=== PATIENT | female | born 1995 | race Caucasian/White ===

== ENCOUNTER 2023-02-18 08:11 | Outpatient (CLI) | payer BC, SELFPAY ==
--- NOTE | 2023-02-18 | ECHO_ITS ---
Patient Info Name: Zena Lang Age: 27 years : 1995 Gender: Female Ht: 71 in Wt: 180 lbs BSA: 2.03 m2 HR: 96 bpm BP: 130 / 80 mmHg Technical Quality: Fair Exam Date: 02/18/2023 8:36 AM Exam Location: [facility] Patient Status: Outpatient Admit Date: 02/18/2023 Staff Ordering Physician: Jerzy, Apple BROWN Alum Mixer: Lisa Morales RDCS Attending Provider: Jerzy, Apple BROWN Exam Type: CA echo doppler color flow Study Info Indications R00.2 - Palpitations R00.0 - Tachycardia, unspecified Complete two-dimensional, color flow and Doppler transthoracic echocardiogram is performed. Summary 1. Complete two-dimensional, color flow and Doppler transthoracic echocardiogram is performed. 2. Left ventricular chamber dimension is normal. 3. Left ventricular systolic function is normal, estimated at 60-65%. 4. The left ventricular diastolic function is grade II diastolic dysfunction. 5. E/e' 4 is not elevated. 6. Global longitudinal strain is normal at -20.3%. 7. No pulmonary hypertension, estimated pulmonary arterial systolic pressure is 13 mmHg. Left Ventricle E/e' 4 is not elevated. Global longitudinal strain is normal at -20.3%. Left ventricular chamber dimension is normal. Left ventricular systolic function is normal, estimated at 60-65%. The left ventricular diastolic function is grade II diastolic dysfunction. Right Ventricle Right ventricular systolic function is normal and with normal TAPSE 3.2 cm. Right ventricular chamber dimension is normal. Left Atria Left atrial chamber dimension is normal. Right Atria Right atrial chamber dimension is normal. Aortic Valve The aortic valve is not well visualized. Cannot determine number of aortic valve leaflets. There is no aortic valve stenosis. There is no aortic valve regurgitation. Pulmonic Valve There is no pulmonic regurgitation. Mitral Valve There is no mitral valve stenosis. There is no mitral valve regurgitation. Tricuspid Valve There is no tricuspid valve regurgitation. No pulmonary hypertension, estimated pulmonary arterial systolic pressure is 13 mmHg. Pericardium/Pleural There is no pericardial effusion. Inferior Vena Cava Normal inferior vena cava with >50% collapse upon inspiration consistent with normal right atrial pressure, 5 mmHg. Aorta The aortic root size at the sinus of Valsalva is normal. Left Ventricular Outflow Tract Name Value Normal LVOT 2D LVOT Diameter 2.0 cm LVOT Doppler LVOT Peak Gradient 7 mmHg LVOT Mean Gradient 4 mmHg LVOT VTI 26 cm LVOT VTI/AV VTI Ratio 1.0 LVOT Stroke Volume 80 ml LVOT CO 7.7 l/min LVOT CI 3.8 l/min/m2 Pulmonic Valve Name Value Normal RVOT Doppler -
== END 2023-02-18 08:12 | disposition home or self-care (01) ==
LOC: ANHCARD 08:15
PROVIDERS: PCP Nurse Practitioner Family; Visit Provider Nurse Practitioner Family
DX: R00.2 Palpitations (principal)
CPT/HCPCS: 93306

== ENCOUNTER 2023-12-28 00:56 | Day surgery (SDC) | payer OTHER, SELFPAY ==
[2023-12-19 13:00] VITALS: BMI 25.8
--- NOTE | 2023-12-19 13:04 | PC.NURSE ---
Report to the Outpatient Waiting Room, entrance under the green pavilion located off [facility], at time 0800 on date 12/28/23. Planned Procedure Time: 1000. Time changes happen often and if your time is changed the preop area will call you the afternoon before. - You and your visitor will be asked to self-screen and do not enter if you have any COVID symptoms. - A mask is optional within the hospital at this time. Patients may have clear liquids (water, carbonated beverages, clear teas, apple juice) until 3 hours prior to surgery with a maximum of 20 ounces. - No food from midnight until time of surgery Take the following medications with a SIP of water the morning of surgery: NONE DO NOT STOP ANY OF YOUR OTHER PRESCRIPTION MEDICATIONS PRIOR TO SURGERY ?EXCEPT THE FOLLOWING Medications to discontinue per physician: N/A Date to take last dose: N/A Please no make-up, nail thai, hairspray, perfume, deodorant, or body powder the day of surgery. No jewelry (including any body piercings) or valuables the day of surgery, leave them at home. Please take a shower or bath the night before, or the morning of, surgery with an antibacterial soap. Wear comfortable, loose fitting clothing. - Jewelry must be removed prior to entering the operating room. Rings and piercings that are not removed may be cut off. - The hospital will not accept responsibility for valuables. - Please leave all valuables, including medications, at home the day of surgery. If you are going home after surgery, a licensed haul truck driver must drive you home. - NO public transportation without another adult if you receive anesthesia. - We recommend that an adult stay with you for 24 hours following discharge. - We also recommend that you do not drive, make important decision, drink alcoholic beverages, or take any drugs that were not prescribed by your health care provider for at least 24 hours after your discharge time. Follow any additional instructions given to you from your surgeon. If you or anyone in your household have experienced Covid symptoms in the past week, please notify your surgeon or the nurse liaison at the phone number below for possible testing. Telephone instructions given to PT - TREVOR RAYMOND and asked if any additional questions and then verbalized understanding. Patient advised to call surgeon office or pre surgery nurse liaison [phone] if any additional questions.
--- NOTE | 2023-12-27 09:44 | P.PNAN_ITS ---
Anes - Initial Pre Proc Eval Procedure: Operation Date: 12/28/23 10:00 Proposed Procedures p Laparoscopic Bilateral Salpingectomy - Carmen Jose MD Date/Time: 12/27/23 09:44 Surgeon: Carmen Jose MD Pre Op Diagnosis: Female Sterilization Patient Data Age: 28 Gender: F Height: 1.8 m Weight: 83.95 kg Allergies Allergy/AdvReac Type Severity Reaction Status Date / Time No Known Allergies Allergy Unverified 12/19/23 12:59 Home Medications Medication Instructions Recorded Confirmed Type metoprolol succinate 25 mg 25 mg PO HS 12/19/23 12/19/23 History tablet,extended release 24 hr ziprasidone HCl 60 mg capsule 60 mg PO HS 12/19/23 12/19/23 History Patient hx anesthesia problems: none Family hx anesthesia problems: none Results Review: All pre-operative results and documents have been reviewed as part of the pre- operative evaluation. [facility] Social History Social History Smoking status: Never smoker Alcohol intake: current Drinks per week: 2 Substance use: never Substance use type: does not use Living arrangements: with friend(s) Additional living arrangements comments: BOYFRIEND Spiritual care concerns: No Anes - Eval Final PreProcedure Day of Procedure 12/27/23 09:44 Patient weight: overweight Heart: regular rate and rhythm Lungs: clear to auscultation Airway: Mallampati scale class II Neurological: alert and oriented Last oral intake: >/= 8 hours ASA classification: II Emergent: no Anesthetic plan: proceed Anesthesia type and monitoring: general ETT and standard monitoring Results Review: All pre-operative results and documents have been reviewed as part of the pre- operative evaluation. Informed Consent: The patient's anesthetic plan and its attendant risks and benefits were discussed with the patient/family/POA. Questions were solicited and answers provided to the satisfaction of the patient/family/POA.
[2023-12-28] VITALS (8 sets, daily range): BP systolic 107–124; BP diastolic 49–69; PULSE 67–97; RESP 10–20; TEMP 36.5–37.1; O2SAT 97–100
[2023-12-28] MEDS: ACETAMINOPHEN 500 MG TABLET 1000 MG PO (08:25)
[2023-12-28] MEDS: LACTATED RINGERS 1,000 ML 30 ML IV CONT ×2 (08:30→11:20)
[2023-12-28] MEDS: KETOROLAC 15 MG/ML VIAL (*BKC) IV PUSH (08:32)
--- NOTE | 2023-12-28 09:40 | P.PNAN_ITS ---
Anes - Initial Pre Proc Eval Procedure: Operation Date: 12/28/23 10:00 Proposed Procedures p Laparoscopic Bilateral Salpingectomy - Carmen Jose MD Date/Time: 12/28/23 09:40 Surgeon: Carmen Jose MD Pre Op Diagnosis: Female Sterilization Patient Data Age: 28 Gender: F Height: 1.8 m Weight: 79.7 kg Last Vital Signs Temp 97.9 F 12/28/23 07:53 Pulse 97 12/28/23 07:53 Resp 20 12/28/23 07:53 BP 124/59 L 12/28/23 07:53 Pulse Ox 100 12/28/23 07:53 O2 Del Method Room Air 12/28/23 07:53 Allergies Allergy/AdvReac Type Severity Reaction Status Date / Time No Known Allergies Allergy Unverified 12/28/23 08:28 Home Medications Medication Instructions Recorded Confirmed Type metoprolol succinate 25 mg 25 mg PO HS 12/19/23 12/28/23 History tablet,extended release 24 hr ziprasidone HCl 60 mg capsule 60 mg PO HS 12/19/23 12/28/23 History Patient hx anesthesia problems: none Family hx anesthesia problems: none Results Review: All pre-operative results and documents have been reviewed as part of the pre- operative evaluation. [facility] Social History Social History Smoking status: Never smoker Alcohol intake: current Drinks per week: 2 Substance use: never Substance use type: does not use Living arrangements: with friend(s) Additional living arrangements comments: BOYFRIEND Spiritual care concerns: No Anes - Eval Final PreProcedure Day of Procedure 12/28/23 09:40 Patient weight: normal Heart: regular rate and rhythm Lungs: clear to auscultation Neurological: alert and oriented Last oral intake: >/= 8 hours Emergent: no Anesthetic plan: proceed Results Review: All pre-operative results and documents have been reviewed as part of the pre- operative evaluation. Informed Consent: The patient's anesthetic plan and its attendant risks and benefits were discussed with the patient/family/POA. Questions were solicited and answers provided to the satisfaction of the patient/family/POA.
--- NOTE | 2023-12-28 10:00 | PM.IMHP ---
H&P: HPI History of Present Illness Date/Time: 12/28/23 10:00 Chief Complaint: Female sterilization Narrative: this patient is a 28-year-old female who would like sterilization. We have agreed to perform laparoscopic bilateral salpingectomy. She understands risks. She understands the procedure in detail. It was explained to her. She understands that injuries may occur that result hospitalization, more surgery, and severe illness. she understands risk of hemorrhage and infection. She denies any nausea, vomiting, fever, chills. She denies any chest pain shortness of breath Review of Systems Review of Systems: All systems reviewed & are unremarkable except as noted in HPI and below Constitutional: Constitutional: Denies chills, Denies fatigue, Denies fever(s) and Denies weakness Eyes: Eyes: Denies blurry vision, Denies change in vision, Denies loss of peripheral vision, Denies loss of vision, Denies other visual disturbances and Denies eye pain ENT: Denies vertigo, Denies dizziness, Denies hearing loss, Denies mouth pain, Denies nasal obstruction, Denies neck mass and Denies neck pain Cardiovascular: Cardiovascular: Denies chest pain, Denies diaphoresis, Denies syncope, Denies leg edema and Denies dyspnea Respiratory: Respiratory: Denies chest congestion, Denies cough, Denies hemoptysis, Denies dyspnea and Denies wheezing Gastrointestinal: Gastrointestinal: Denies abdominal pain, Denies constipation, Denies diarrhea, Denies nausea and Denies vomiting Genitourinary: Genitourinary: Denies hematuria, Denies change in libido, Denies nocturia, Denies genital lesions, Denies flank pain and Denies urinary urgency Musculoskeletal: Musculoskeletal: Denies abnormal gait, Denies back pain, Denies myalgias, Denies arthralgias, Denies joint swelling, Denies muscle weakness and Denies neck pain Integumentary/Breasts: Skin/Breast: Denies swelling, Denies breast pain, Denies breast mass, Denies dry skin, Denies nipple discharge, Denies unusual bruising and Denies jaundice Neurologic: Denies Neuro-related abnormal movements, Denies Abnormal speech present, Denies abnormal gait, Denies behavioral changes, Denies confusion, Denies vertigo, Denies dizziness, Denies syncope, Denies loss of vision, Denies memory loss, Denies convulsions and Denies weakness Psychiatric: Psychiatric: Denies abnormal sleep pattern, Denies behavioral changes, Denies change in libido, Denies confusion, Denies depression, Denies anhedonia and Denies memory loss Endocrine: Endocrine: Reports no additional endocrine complaints, Denies change in libido and Denies fatigue Hematologic/Lymphatic: Hematologic/Lymphatic: Reports no additional hematologic/lymphatic complaints Allergic/Immunologic: Allergic/Immunologic: Reports no additional allergic/immunologic complaints and Denies wheezing PMFSH Social History Social History Smoking status: Never smoker Alcohol intake: current Drinks per week: 2 Substance use: never Substance use type: does not use Living arrangements: with friend(s) Additional living arrangements comments: BOYFRIEND Spiritual care concerns: No Meds Home Medications and Allergies Home Medications Medication Instructions Recorded Confirmed Type metoprolol succinate 25 mg 25 mg PO HS 12/19/23 12/28/23 History tablet,extended release 24 hr ziprasidone HCl 60 mg capsule 60 mg PO HS 12/19/23 12/28/23 History Allergies Allergy/AdvReac Type Severity Reaction Status Date / Time No Known Allergies Allergy Unverified 12/28/23 08:28 Vital Signs Vital Signs - 24 hr 12/28/23 07:53 Temperature 97.9 F Pulse Rate 97 Respiratory Rate 20 Blood Pressure 124/59 L Pulse Oximetry 100 Oxygen Delivery Room Air Exam Const: General: cooperative, healthy appearing, comfortable and no acute distress Orientation/consciousness: oriented to person, oriented to place and orien
--- NOTE | 2023-12-28 10:04 | WPDANESEPPF ---
Anes - Initial Pre Proc Eval Procedure: Operation Date: 12/28/23 10:00 Proposed Procedures p Laparoscopic Bilateral Salpingectomy - Carmen Jose MD Date/Time: 12/28/23 10:04 Surgeon: Carmen Jose MD Pre Op Diagnosis: Female Sterilization Patient Data Age: 28 Gender: F Height: 1.8 m Weight: 79.7 kg Last Vital Signs Temp 97.9 F 12/28/23 07:53 Pulse 97 12/28/23 07:53 Resp 20 12/28/23 07:53 BP 124/59 L 12/28/23 07:53 Pulse Ox 100 12/28/23 07:53 O2 Del Method Room Air 12/28/23 07:53 Allergies Allergy/AdvReac Type Severity Reaction Status Date / Time No Known Allergies Allergy Unverified 12/28/23 08:28 Home Medications Medication Instructions Recorded Confirmed Type metoprolol succinate 25 mg 25 mg PO HS 12/19/23 12/28/23 History tablet,extended release 24 hr ziprasidone HCl 60 mg capsule 60 mg PO HS 12/19/23 12/28/23 History Patient hx anesthesia problems: none Family hx anesthesia problems: none Results Review: All pre-operative results and documents have been reviewed as part of the pre-operative evaluation. [facility] Social History Social History Smoking status: Never smoker Alcohol intake: current Drinks per week: 2 Substance use: never Substance use type: does not use Living arrangements: with friend(s) Additional living arrangements comments: BOYFRIEND Spiritual care concerns: No Anes - Eval Final PreProcedure Day of Procedure 12/28/23 10:04 Patient weight: obese Heart: regular rate and rhythm Lungs: clear to auscultation Airway: Mallampati scale class II Neurological: alert and oriented Last oral intake: >/= 8 hours ASA classification: II Emergent: no Anesthetic plan: proceed Anesthesia type and monitoring: general ETT and standard monitoring Results Review: All pre-operative results and documents have been reviewed as part of the pre-operative evaluation. Informed Consent: The patient's anesthetic plan and its attendant risks and benefits were discussed with the patient/family/POA. Questions were solicited and answers provided to the satisfaction of the patient/family/POA.
--- NOTE | 2023-12-28 10:07 | WPDHPUPDATE1 ---
History and Physical Update Update Date/Time: 12/28/23 10:07 History and Physical has been reviewed, including an updated exam of the patient. There are NO changes in the patient's condition. Risks, benefits, and alternatives have been discussed and questions answered. Patient agrees to proceed with procedure.
[2023-12-28] MEDS: fentaNYL CITRATE INJ (*CRX) 100 MCG/2 ML VIAL 25 MCG IV PUSH ×4 (11:28→12:13)
--- NOTE | 2023-12-28 11:42 | SUR.PHASEI ---
1141: Simple mask removed.
--- NOTE | 2023-12-28 12:24 | W.PM.PROC2 ---
Procedure Note - Detailed Date of Procedure 12/28/23 Pre-op Diagnosis Female Sterilization Post-op Diagnosis Same Procedure Performed Laparoscopic bilateral salpingectomy Surgeon Carmen Jose MD Anesthesia General Indications Unwanted fertility Findings several endometrial implants throughout the pelvis Description of Procedure The patient was taken the operating room. She was prepped and draped in the dorsal lithotomy position after induction of general anesthesia. A 5 mm skin incision was made in the left upper quadrant of the abdominal skin. A 5 mm trocar was inserted the intra-abdominal cavity under direct visualization of the scope. Pneumoperitoneum was achieved. A 5 mm trocar was inserted in the left lower quadrant identical fashion. A 5 mm infraumbilical trocar was inserted in identical fashion as well. The bilateral fallopian tubes were removed. This was done by using a LigaSure cautery. The mesosalpinx adjacent to the tube was cauterized transected with LigaSure. This was initiated in the area the ovary and in a stepwise fashion moved medially to the area of the cornu of the uterus. Once there the fallopian tube was cauterized and transected. This was done in identical fashion on each side. The fallopian tubes were taken out through the left lower quadrant trocar site. The pneumoperitoneum was reduced. The trocars removed. The skin was closed with subcuticular 4 Monocryl and covered with Dermabond. She was taken to cover stable condition. Sponge lap and needle counts were correct x2. Estimated Blood Loss 5 Drains No Packing No Pathology Yes Complications No immediate complications Condition Stable Disposition PACU
[2023-12-28] MEDS: oxyCODONE HCL (*CRX) 5 MG TAB IR PO (12:37)
== END 2023-12-28 13:10 | disposition home or self-care (01) ==
PROVIDERS: PCP Nurse Practitioner Family; Visit Provider Obstetrics & Gynecology
PROC: (CPT 49320; principal; 2023-12-28 10:00)
DX: Z30.2 Encounter for sterilization (principal); N83.8 Other noninflammatory disorders of ovary, fallopian tube and broad ligament
CPT/HCPCS: 58661; 88302; A9270; J1100; J1170; J1200; J1885; J2250; J2371; J2405; J3010; J7030; J7120

== ENCOUNTER 2025-01-17 15:46 | Emergency (ER) | payer BC, SELFPAY ==
[2025-01-17 15:54] VITALS: BP 124/67; PULSE 80; RESP 18; TEMP 36.6; O2SAT 100
--- NOTE | 2025-01-17 15:56 | ED.GENADULT ---
HPI - General Adult General Chief complaint: Weakness Stated complaint: Weakness Time Seen by Provider: 01/17/25 15:56 Source: patient Mode of arrival: ambulatory Limitations: no limitations History of Present Illness HPI narrative: 29-year-old female presents with complaint of generalized weakness, fatigue for 3-4 weeks. Patient states I feel like crap . Patient had appointment with her [employer] [email or web address] developer last week but did not tell him about symptoms. Patient is scheduled for surgery to remove endometriosis next Tuesday. No vaginal bleeding at this time. Reports urinary frequency but at baseline. Afebrile. No URI symptoms. Currently does not have a primary care physician. Patient currently smokes marijuana daily. All systems reviewed and negative except as noted above. Related Data Home Medications ?Medication ?Instructions ?Recorded ?Confirmed ?Last Taken ?Type ziprasidone HCl 60 mg capsule 60 mg PO HS 12/19/23 01/16/25 12/27/23 History cholecalciferol (vitamin D3) 25 25 mcg PO DAILY 01/16/25 01/16/25 Unknown History mcg (1,000 unit) capsule (Vitamin D3) magnesium 250 mg tablet 500 mg PO HS 01/16/25 01/16/25 Unknown History prazosin 1 mg capsule 1 mg PO HS 01/16/25 01/16/25 Unknown History Allergies Allergy/AdvReac Type Severity Reaction Status Date / Time No Known Allergies Allergy Unverified 01/17/25 15:56 Review of Systems Review of Systems: CONSTITUTIONAL: Denies fever, chills, or sweats. Reports fatigue. EYES: Denies visual changes, redness, or discharge. ENT: Denies rhinorrhea, congestion, sore throat, or otalgia. CARDIOVASCULAR: Denies chest pain, palpitations, or edema. RESPIRATORY: Denies cough or dyspnea. GASTROINTESTINAL: Denies abdominal pain, nausea, vomiting, or diarrhea. GENITOURINARY: Denies dysuria or hematuria. SKIN: Denies rash or itching. MUSCULOSKELETAL: Denies back pain, joint pain, or myalgia. NEUROLOGIC: Denies headache, numbness, or weakness. PSYCHIATRIC: Denies anxiety or depression. All other systems reviewed are negative, except as documented in HPI. FORMERLY [facility], [facility] Social History Social History Smoking status: Never smoker Alcohol intake: current Drinks per week: 2 Substance use: never Substance use type: marijuana Other substance usage details: Nightly Living arrangements: with family Additional living arrangements comments: BOYFRIEND Spiritual care concerns: No Comments At time of signature, agree with nursing past medical, surgical, social and family history. There is no relevant family history pertinent to the presenting complaint. Exam Narrative: GENERAL: This is a well-nourished, well-developed patient, in no apparent distress. HEAD: normocephalic, atraumatic. EYES: PERRL. Sclera clear/white. Vision is grossly intact. EARS: External ears normal NOSE: External nose normal NECK: Neck supple, non-tender without lymphadenopathy, masses or thyromegaly. CARDIOVASCULAR: Regular rate and rhythm without murmurs, gallops, or rubs. RESPIRATORY: Clear to auscultation. Breath sounds equal bilaterally. No wheezes, rales, or rhonchi. GASTROINTESTINAL: Abdomen soft, non-tender, nondistended. Bowel sounds are active. No hepato-splenomegaly, or palpable masses. No guarding. SKIN: warm, Dry, intact with no suspicious lesions or rash, good texture and turgor. NEURO: awake, alert, and oriented to person, place and time. There were no obvious focal neurologic abnormalities. EXTREMITIES: No joint tenderness, effusion, or edema noted. Course Course Level of Care: Express Care Visit Vital Signs Vital signs: Vital Signs Temperature 36.6 C 01/17/25 15:54 Pulse Rate 80 01/17/25 15:54 Respiratory Rate 18 01/17/25 15:54 Blood Pressure 124/67 01/17/25 15:54 Pulse Oximetry 100 01/17/25 15:54 Oxygen Delivery Room Air 01/17/25 15:54 Temperature 36.6 C 01/17/25 15:54 Pulse Rate 80 01/17/25 15:54 Respiratory Rate 18 01/17/25 15:54 Blood Pressure 124/67 01/17/25 15:54 Pulse Oximetry 100 01/17/25 15:54 Oxygen Delivery Room Air 01/17/25 15:54 Reviewed Medical Decision Making MDM Narrative Medical decision making narrative: patient complains of generalized weakness and fatigue for 3-4 weeks. She had appointment with her OBGYN last week but did not mention symptoms to them. Currently does not have a PCP. Patient reports heavier than usual menstrual. Three weeks ago but no vaginal bleeding at this time. Patient has endometriosis. Is scheduled for endometriosis removal next week. Explain to patient that we are very limited on testing we can do at [facility]. Patient's blood sugar was anyone. Her urinalysis was normal other than trace blood. I recommend that she follow-up with a primary care physician for further evaluation. Will go to the ER for any worsening of symptoms. Patient is alert, nontoxic. Vital signs Hemodynamically stable. Please be advised this is a medical document. It is intended for [id number] communication. It is written in medical language and may contain unfamiliar abbreviations or verbiage. Medical documents are intended to carry relevant information, facts as evident, and the clinical opinion of the practitioner at the time of the encounter. This report may have been done utilizing a voice recognition system. Attempts have been made to correct errors. However, there may be uncorrected grammatical, spelling, and recognition errors present. The file time of this note does not necessarily represent the time of service. Vital Signs Vital Signs: Vital Signs Temperature 36.6 C 01/17/25 15:54 Pulse Rate 80 01/17/25 15:54 Respiratory Rate 18 01/17/25 15:54 Blood Pressure 124/67 01/17/25 15:54 Pulse Oximetry 100 01/17/25 15:54 Oxygen Delivery Room Air 01/17/25 15:54 Temperature 36.6 C 01/17/25 15:54 Pulse Rate 80 01/17/25 15:54 Respiratory Rate 18 01/17/25 15:54 Blood Pressure 124/67 01/17/25 15:54 Pulse Oximetry 100 01/17/25 15:54 Oxygen Delivery Room Air 01/17/25 15:54 Lab Data Labs: Lab Results 01/17/25 01/17/25 Range/Units 16:22 16:23 POC Capillary Glucose 81 (65-105) mg/dl POC Urine Color Yellow POC Urine Clarity Clear POC Urine pH 7.0 POC Ur Specif Nazlini 1.015 POC Urine Protein Negative (Negative) POC Ur Glucose (UA) Negative (Negative) POC Urine Ketones Negative (Negative) POC Urine Blood Trace (Negative) POC Urine Nitrite Negative (Negative) POC Urine Bilirubin Negative (Negative) POC Urine Urobilinogen 0.2 POC U Leukocyte Esteras Negative (Negative) Discharge Plan Discharge Clinical Impression: Fatigue, Generalized weakness Patient Disposition: Home, Self-Care Condition: Stable Instructions: Fatigue (ED) Additional Instructions: Your urinalysis was normal today. Your blood sugar was 81. Follow-up with primary care physician for further evaluation. For any worsening of symptoms go to the ER. Patient Language: Burkinan Prescriptions: No Action prazosin 1 mg capsule 1 mg PO HS Patient Comments: Takes as a mood stabilizer magnesium 250 mg tablet 500 mg PO HS cholecalciferol (vitamin D3) [Vitamin D3] 25 mcg (1,000 unit) capsule 25 mcg PO DAILY ziprasidone HCl 60 mg capsule 60 mg PO HS Follow-up/Referrals: PHYSICIAN,PROPERTY MANAGEMENT ASSISTANT [Primary Care Provider] - Berhane Osei MD [Physician] - ( Establish care with a primary care physician) Time of Disposition: 16:25
[2025-01-17 16:24] LABS: Glucose Point of Care 81 mg/dl (65-105)
[2025-01-17 16:26] LABS: EDUAAPPEAR Clear; EDUABILI Negative (Negative); EDUABLOOD Trace (Negative); EDUACOLOR1 Yellow; EDUAGLUCOSE Negative (Negative); EDUAKETONE Negative (Negative); EDUALEUKO Negative (Negative); EDUANITRATE Negative (Negative); EDUAPROTEIN Negative (Negative); EDUASPGRAVITY 1.015; EDUAUROBILI 0.2
--- OUTSIDE RECORDS SUMMARY | 2025-01-17 17:22 | XMS_ITS | Data Portability ---
Author Organization [facility] Address [address] [place] [address] Care Team Providers Care Family Practice Doctor Name Role Phone JESSA WINTERS Primary Care Provider Assessment Encounter Date Assessment Date Assessment LastModified by Organization Details LastModified Time 06/14/2019 06/14/2019 note for work to excuse for today's visit Not available 06/14/2019 17:02:36 Plan of Treatment Reminders Order Date Submit Date Provider Last Modified By Organization Details Last Modified Time Details Appointments None recorded. Lab celiac disease comprehens haroon panel, serum 2016 017 [facility], [facility], [address], [place], [address], 7 16:19:24 celiac disease comprehens haroon panel, serum 2016 017 [facility], [facility], [facility] [address], [place], [address], 7 02:37:35 CBC w/ auto diff 2016 017 [facility], [facility], [address], [place], [address], 7 16:20:52 CMP, serum or plasma 2016 017 [facility], [address] [place], [place] [address]federico Florian, [facility] [address], [place], [address], 7 16:20:52 TSH, ultra-sens itive, serum 2016 017 [facility], [address] [place] [address], [address], [place], [address], 7 16:20:53 celiac disease comprehens haroon panel, serum 2016 017 [facility], [address] [place] [address], [address], [place], [address], 7 16:20:51 vitamin D, 25-hydroxy , total, serum 2016 017 [facility], [address] [place] [address], [address], [place], [address], 7 16:20:53 Referral None recorded. Procedures None recorded. Surgeries None recorded. Imaging None recorded. Medication Orders Seasonique 0.15 mg-30 mcg (84)/10 mcg(7) tablets,3 month dose pack [address] [id number], [address] [place], [address], 9 17:00:10 Zofran ODT 8 mg disintegra ting tablet 2017 [facility]18 [facility] [address] [place], [address], 9 15:58:29 OsmoPrep 1.5 gram (1.102-0.3 98) tablet [address] [facility] [address] [place], [address], 7 16:27:46 Miralax 17 gram/dose oral powder 2016 017 [facility]/Pharmacy #2510, [address] [place], [address], 7 16:27:32 Linzess 145 mcg capsule 2016 Carlos estelle [facility], [address] [place], [address], 7 16:27:28 Patient TargetsNo targets recorded. Patient Instructions Encounter Date Encounter Id Patient Instructions Last Modified By Organization Details Last Modified Time 03/15/2017 [id number] constipation: care instructions Not available 03/15/2017 17:41:21 diet - low fodmap lenglema Not availabl e 03/16/2017 09:44:44 04/12/2017 [id number] OK for work note for yesterday and today Not available 04/13/2017 02:37:16 Reason for Referral None Reported. Results Created Date Observation Date Name Description Value Unit Range Abnormal Flag Note LastModifiedBy Organization Detail LastModifiedTime 03/15/20 17 03/16/2017 sugey c disea se compr ehens haroon panel , serum endomysial antibody IgA NEGATI VE negati ve Not Available [facility] ([facility]) [address] [facility], [place], [address], 03/16/2017 16:20:51 03/15/20 17 03/16/2017 sugey c disea se compr ehens haroon panel , serum T-transgluta minase (ttg) IgA <2 U/mL 0-3 NEGAT HAROON 0 - 3 WEAK POSIT HAROON 4 - 10 POSIT HAROON >10 TISSU E TRANS GLUTA CHER E (TTG) HAS BEEN IDENT IFIED THE ENDOM YSIAL ANTIG EN. STUDI ES HAVE DEMON STR- ATED THAT ENDOM YSIAL IGA ANTIB ODIES HAVE OVER 99% SPECI FICIT Y FOR GLUTE N SENSI TIVE ENTER OPATH Y. Not Available [facility] ([facility]) [address] [facility], [place], [address], 03/16/2017 16:20:51 03/15/20 17 03/16/2017 sugey c disea se compr ehens haroon panel , serum immunoglobul in A, qn, serum 73 mg/dL 87-352 below low normal Not Available [facility] ([facility]) [address] [facility], [place], [address], 03/16/2017 16:20:51 03/15/20 17 03/16/2017 sugey c disea se compr ehens haroon panel , serum T-transgluta minase (ttg) IgG <2 U/mL 0-5 NEGAT HAROON 0 - 5 WEAK POSIT HAROON 6 - 9 POSIT HAROON >9 Not Available [facility] ([facility]) [address] [facility], [place], [address], 03/16/2017 16:20:51 03/15/20 17 03/16/2017 CBC w/ auto diff WBC 10.2 x10e3 /uL 3.4-10 .8 Not Available [facility] ([facility]) [address] [facility], [place], [address], 03/16/2017 16:20:52 03/15/20 17 03/16/2017 CBC w/ auto diff RBC 4.75 x10e6 /uL 3.77-5 .28 Not Available [facility] ([facility]) [address] [facility], [place], [address], 03/16/2017 16:20:52 03/15/20 17 03/16/2017 CBC w/ auto diff hemoglobin 14.3 g/dL 11.1-1 5.9 Not Available [facility] ([facility]) [address] [place], [address], 03/16/2017 16:20:52 03/15/20 17 03/16/2017 CBC w/ auto diff hematocrit 40.5 % 34.0-4 6.6 Not Available [facility] ([facility]) [address] [place], [address], 03/16/2017 16:20:52 03/15/20 17 03/16/2017 CBC w/ auto diff MCV 85 fL 79-97 Not Available [facility] ([facility]) [address] [facility], [place], [address], 03/16/2017 16:20:52 03/15/20 17 03/16/2017 CBC w/ auto diff MCH 30.1 pg 26.6-3 3.0 Not Available [facility] ([facility]) [address] [facility], [place], [address], 03/16/2017 16:20:52 03/15/20 17 03/16/2017 CBC w/ auto diff MCHC 35.3 g/dL 31.5-3 5.7 Not Available [facility] ([facility]) [address] [facility], [place], [address], 03/16/2017 16:20:52 03/15/20 17 03/16/2017 CBC w/ auto diff RDW 13.4 % 12.3-1 5.4 Not Available [facility] ([facility]) [address] [facility], [place], [address], 03/16/2017 16:20:52 03/15/20 17 03/16/2017 CBC w/ auto diff platelets 287 x10e3 /uL 150-37 9 Not Available [facility] ([facility]) [address] [facility], [place], [address], 03/16/2017 16:20:52 03/15/20 17 03/16/2017 CBC w/ auto diff neutrophils 61 % Not Available [facility] ([facility]) [address] [place], [address], 03/16/2017 16:20:52 03/15/20 17 03/16/2017 CBC w/ auto diff lymphs 32 % Not Available [facility] ([facility]) [address] [facility], [place], [address], 03/16/2017 16:20:52 03/15/20 17 03/16/2017 CBC w/ auto diff monocytes 6 % Not Available [facility] ([facility]) [address] [place], [address], 03/16/2017 16:20:52 03/15/20 17 03/16/2017 CBC w/ auto diff eos 1 % Not Available [facility] ([facility]) [address] [place], [address], 03/16/2017 16:20:52 03/15/20 17 03/16/2017 CBC w/ auto diff basos 0 % Not Available [facility] ([facility]) [address] [place], [address], 03/16/2017 16:20:52 03/15/20 17 03/16/2017 CBC w/ auto diff immature cells RAG COLLECTOR Not Available [facility] ([facility]) [address] [place], [address], 03/16/2017 16:20:52 03/15/20 17 03/16/2017 CBC w/ auto diff neutrophils (absolute) 6.2 x10e3 /uL 1.4-7. 0 Not Available [facility] ([facility]) [address] [place], [address], 03/16/2017 16:20:52 03/15/20 17 03/16/2017 CBC w/ auto diff lymphs (absolute) 3.3 x10e3 /uL 0.7-3. 1 above high normal Not Available [facility] ([facility]) [address] [place], [address], 03/16/2017 16:20:52 03/15/20 17 03/16/2017 CBC w/ auto diff monocytes(ab solute) 0.6 x10e3 /uL 0.1-0. 9 Not Available [facility] ([facility]) [address] [place], [address], 03/16/2017 16:20:52 03/15/20 17 03/16/2017 CBC w/ auto diff eos (absolute) 0.1 x10e3 /uL 0.0-0. 4 Not Available [facility] ([facility]) [address] [place], [address], 03/16/2017 16:20:52 03/15/20 17 03/16/2017 CBC w/ auto diff baso (absolute) 0.0 x10e3 /uL 0.0-0. 2 Not Available [facility] ([facility]) [address] [place], [address], 03/16/2017 16:20:52 03/15/20 17 03/16/2017 CBC w/ auto diff immature granulocytes 0 % Not Available [facility] ([facility]) [address] [place], [address], 03/16/2017 16:20:52 03/15/20 17 03/16/2017 CBC w/ auto diff immature grans (abs) 0.0 x10e3 /uL 0.0-0. 1 Not Available [facility] ([facility]) [address] [place], [address], 03/16/2017 16:20:52 03/15/20 17 03/16/2017 CBC w/ auto diff NRBC RAG COLLECTOR Not Available [facility] ([facility]) [address] [place], [address], 03/16/2017 16:20:52 03/15/20 17 03/16/2017 CBC w/ auto diff hematology comments: RAG COLLECTOR Not Available [facility] ([facility]) [address] [place], [address], 03/16/2017 16:20:52 03/15/20 17 03/16/2017 CMP, serum or plasm a glucose, serum 89 mg/dL 65-99 Not Available [facility] ([facility]) [address] [place], [address], 03/16/2017 16:20:52 03/15/20 17 03/16/2017 CMP, serum or plasm a BUN 15 mg/dL 6-20 Not Available [facility] ([facility]) [address] [place], [address], 03/16/2017 16:20:52 03/15/20 17 03/16/2017 CMP, serum or plasm a creatinine, serum 0.72 mg/dL 0.57-1 .00 Not Available [facility] ([facility]) [address] [place], [address], 03/16/2017 16:20:52 03/15/20 17 03/16/2017 CMP, serum or plasm a eGFR if nonafricn AM 122 mL/mi n/1.7 3 >59 Not Available [facility] ([facility]) [address] [place], [address], 03/16/2017 16:20:52 03/15/20 17 03/16/2017 CMP, serum or plasm a eGFR if africn AM 140 mL/mi n/1.7 3 >59 Not Available [facility] ([facility]) [address] [place], [address], 03/16/2017 16:20:52 03/15/20 17 03/16/2017 CMP, serum or plasm a BUN/creatini ne ratio 21 9-23 Not Available [facility] ([facility]) [address] [place], [address], 03/16/2017 16:20:52 03/15/20 17 03/16/2017 CMP, serum or plasm a sodium, serum 143 mmol/ L 134-14 4 Not Available [facility] ([facility]) [address] [place], [address], 03/16/2017 16:20:52 03/15/20 17 03/16/2017 CMP, serum or plasm a potassium, serum 4.8 mmol/ L 3.5-5. 2 Not Available [facility] ([facility]) [address] [place], [address], 03/16/2017 16:20:52 03/15/20 17 03/16/2017 CMP, serum or plasm a chloride, serum 103 mmol/ L 96-106 Not Available [facility] ([facility]) [address] [facility], [place], [address], 03/16/2017 16:20:52 03/15/20 17 03/16/2017 CMP, serum or plasm a carbon dioxide, total 21 mmol/ L 18-29 Not Available [facility] ([facility]) [address] [place], [address], 03/16/2017 16:20:52 03/15/20 17 03/16/2017 CMP, serum or plasm a calcium, serum 9.7 mg/dL 8.7-10 .2 Not Available [facility] ([facility]) [address] [place], [address], 03/16/2017 16:20:52 03/15/20 17 03/16/2017 CMP, serum or plasm a protein, total, serum 6.7 g/dL 6.0-8. 5 Not Available [facility] ([facility]) [address] [facility], [place], [address], 03/16/2017 16:20:52 03/15/20 17 03/16/2017 CMP, serum or plasm a albumin, serum 4.6 g/dL 3.5-5. 5 Not Available [facility] ([facility]) [address] [place], [address], 03/16/2017 16:20:52 03/15/20 17 03/16/2017 CMP, serum or plasm a globulin, total 2.1 g/dL 1.5-4. 5 Not Available [facility] ([facility]) [address] [place], [address], 03/16/2017 16:20:52 03/15/20 17 03/16/2017 CMP, serum or plasm a A/G ratio 2.2 1.2-2. 2 Not Available [facility] ([facility]) [address] [place], [address], 03/16/2017 16:20:52 03/15/20 17 03/16/2017 CMP, serum or plasm a bilirubin, total <0.2 mg/dL 0.0-1. 2 Not Available [facility] ([facility]) [address] [place], [address], 03/16/2017 16:20:52 03/15/20 17 03/16/2017 CMP, serum or plasm a alkaline phosphatase, S 45 IU/L 39-117 Not Available [facility] ([facility]) [address] [place], [address], 03/16/2017 16:20:52 03/15/20 17 03/16/2017 CMP, serum or plasm a AST (SGOT) 15 IU/L 0-40 Not Available [facility] ([facility]) [address] [place], [address], 03/16/2017 16:20:52 03/15/20 17 03/16/2017 CMP, serum or plasm a ALT (SGPT) 13 IU/L 0-32 Not Available [facility] ([facility]) [address] [place], [address], 03/16/2017 16:20:52 03/15/20 17 03/16/2017 vitam in D, 25-hy droxy , total , serum vitamin D, 25-hydroxy 49.5 NG/mL 30.0-1 00.0 VITAM IN D DEFIC IENCY HAS BEEN DEFIN ED BY THE INSTI TUTE OF MEDIC INE AND AN ENDOC RINE SOCIE TY PRACT ICE GUIDE LINE A LEVEL OF SERUM 25-OH VITAM IN D LESS THAN 20 NG/ML (1,2) . THE ENDOC RINE SOCIE TY WENT ON TO FUR ER DEFIN E VITAM IN D INSUF FICIE NCY A LEVEL BETWE EN 21 AND 29 NG/ML (2). 1. IOM (INST IT[facility] OF MEDIC INE). 2010. DIETA RY REFER ENCE INTAK ES FOR CALCI UM AND D. LEVI MOLINA DC: [facility] . 2. EMILIE Bergeron MF, ANGEL COFFMAN NC, BISCH OFF-F PATRICIA I BALLESTEROS, ET AL. EVALU ATION , TREAT MENT, AND PREVE NTION OF VITAM IN D DEFIC IENCY : AN ENDOC RINE SOCIE TY CLINI HUY PRACT ICE GUIDE LINE. JCEM. 2010; 96(7) :1911 -30. Not Available [facility] ([facility]) [address] [place], [address], 03/16/2017 16:20:53 03/15/20 17 03/16/2017 TSH, ultra -sens itive , serum TSH 1.680 uIU/m L 0.450- 4.500 Not Available [facility] ([facility]) [address] [place], [address], 03/16/2017 16:20:53 04/21/20 17 04/22/2017 sugey c disea se compr ehens haroon panel , serum endomysial antibody IgA NEGATI VE negati ve Not Available [facility] ([facility]) [address] [place], [address], 04/22/2017 16:19:24 04/21/20 17 04/22/2017 sugey c disea se compr ehens haroon panel , serum T-transgluta minase (ttg) IgA <2 U/mL 0-3 NEGAT HAROON 0 - 3 WEAK POSIT HAROON 4 - 10 POSIT HAROON >10 TISSU E TRANS GLUTA CHER E (TTG) HAS BEEN IDENT IFIED THE ENDOM YSIAL ANTIG EN. STUDI ES HAVE DEMON STR- ATED THAT ENDOM YSIAL IGA ANTIB ODIES HAVE OVER 99% SPECI FICIT Y FOR GLUTE N SENSI TIVE ENTER OPATH Y. Not Available [facility] ([facility]) [address] [place], [address], 04/22/2017 16:19:24 04/21/20 17 04/22/2017 sugey cinthia disea se compr ehens haroon panel , serum immunoglobul in A, qn, serum 69 mg/dL 87-352 below low normal Not Available [facility] ([facility]) [address] [facility], [place], [address], 04/22/2017 16:19:24 04/21/20 17 04/22/2017 sugey cinthia disea se compr ehens haroon panel , serum T-transgluta minase (ttg) IgG <2 U/mL 0-5 NEGAT HAROON 0 - 5 WEAK POSIT HAROON 6 - 9 POSIT HAROON >9 Not Available [facility] ([facility]) [address] [facility], [place], [address], 04/22/2017 16:19:24 06/19/20 19 06/11/2019 XR, chest , 2 view No observ ation record ed. Not Available 2018 16:42:06 Result Notes None recorded. 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 Location : None;Sev erity: Moderate ;Progres s: Stable;A dded By: Bria Lozano;Add to Current Problems : NO Not Available [facility] 7 09:34:07 Hypoglyc emia 446725259 Completed 201201/13/2013 Location : None;Sev erity: Moderate ;Progres s: Stable;A dded By: Jessa Winters;Add to Current Problems : NO Not Available [facility] 7 09:34:07 Vitamin D deficien cy 46210793 Active 2012 Location : None;Sev erity: Moderate ;Progres s: Stable;A dded By: Jessa Winters;Add to Current Problems : YES Not Available [facility] 7 09:34:07 Malaise and fatigue 757498929 Active 2012 Location : None;Sev erity: Moderate ;Progres s: Stable;A dded By: Charis Mejia;Add to Current Problems : NO Not Available [facility] 7 09:34:07 Constipa tion 56310426 Active 2014 Location : None;Sev erity: Moderate ;Progres s: Stable;A dded By: Alexia Stauffer i;Rylee dd to Current Problems : YES Not Available [facility] 7 09:34:07 Tubercul osis screenin g Completed 201310/03/2014 Location : None;Sev erity: Moderate ;Progres s: Stable;A dded By: Bria Lozano;Add to Current Problems : YES Not Available [facility] 7 09:34:07 HPV - Human papillom avirus test positive Active 2013 Location : None;Sev erity: Moderate ;Progres s: Stable;A dded By: Bria Lozano;Add to Current Problems : NO Not Available [facility] 7 09:34:58 Problem Notes None recorded. Procedures Surgical History Date Name Laterality Status Provider Name and Address Organization Details Recorded Time Breast Surgery completed Jessa Winters MD Attn: [address] [place], [address], [facility] 03/15/2017 17:29:21 Imaging Results Imaging Date Name Status LastModified by Organiz [facility] Details LastModified Time 06/11/2019 XR, chest, 2 view completed Information not available 06/19/2019 16:42:06 Procedure Notes None recorded. Medical Equipment None Reported. Allergies No known drug allergies Medications Name Sig Start Date Stop Date Status Note LastModified by Organization Details LastModified Time ziprasidon e 80 mg capsule Take 1 tab po q HS active geodon Not Available Not Available No t Available Miralax 17 gram/dose oral powder Take 17 g 3 times a day by oral route. 04/21 completed Not Available Not Available Not Available prednisone 20 mg tablet 06/14 completed Not Available Not Available Not Available ondansetro n 8 mg disintegra ting tablet Place 1 tablet every 8 hours by translin gual route for 3 days. 06/14 completed Not Available Not Available Not Available ziprasidon e 20 mg capsule one po q hs 11/04 completed RxNorm: 050951; Allow Substit ution: True Not Available Not Available Not Available Vitamin D3 10 mcg (400 unit) tablet 5 po daily 04/12 completed Allow Substit ution: True Not Available Not Available Not Available sertraline 25 mg tablet 3 tablets everyday at noon 08/13 completed RxNorm: 679789; Allow Substit ution: True Not Available Not Available Not Available ziprasidon e 60 mg capsule 03/15 completed Not Available Not Available Not Available Kariva (28) 0.15 mg-0.02 mg (21)/0.01 mg (5) tablet TAKE 1 TABLET(S ) BY MOUTH DAILY DIRECTED . 07/04 completed Not Available Not Available Not Available OsmoPrep 1.5 gram (1.102-0.3 98) tablet Take 4 tablets 5 times a day by oral route. 04/21 completed Not Available Not Available Not Available L norgest/E estradiol- E estrad 0.15 mg-30 mcg (84)/10 mcg(7) tabs,3mos TAKE 1 TABLET BY MOUTH EVERY DAY 2019 active Not Available Not Available Not Avai lable Abilify 2 mg tablet Take 1 tablet(s ) by mouth daily 08/13 completed RxNorm: 303219; Allow Substit ution: True Not Available Not Available Not Available Linzess 145 mcg capsule Take 1 capsule every day by oral route. 04/21 completed Not Available Not Available Not Available Vitals Date Recorded Body weight Body temperature Oxygen saturation Oxygen saturation in Arterial blood by Pulse oximetry Heart rate Systolic blood pressure Diastolic blood pressure Provider Name and Address Organization Details Last Updated DateTime 8 43123.1 9 g 97.7 [degF] 99 % 99 % 96 /min 106 mm[Hg] 56 mm[Hg] Jessa Winters MD Attn: Stephania [address]cke[address] [place], [address], [facility] 8 16:12:15 Date Recorded Body height Body mass index (BMI) Body weight Oxygen saturation Oxygen saturation in Arterial blood by Pulse oximetry Heart rate Body temperature Systolic blood pressure Diastolic blood pressure Provider Name and Address Organization Details Last Updated DateTime 9 180.34 cm 23 kg/m2 50371.0 9 g 98 % 98 % 90 /min 99.3 [degF] 118 mm[Hg] 60 mm[Hg] Nancy Saeed MA [facility] 9 15:58:01 Date Recorded Body height Body weight Body mass index (BMI) Body temperature Oxygen saturation Oxygen saturation in Arterial blood by Pulse oximetry Heart rate Systolic blood pressure Diastolic blood pressure Provider Name and Address Organization Details Last Updated DateTime 7 177.8 cm 35082.9 8 g 22 kg/m2 98 [degF] 99 % 99 % 100 /min 122 mm[Hg] 62 mm[Hg] Tory Mendoza [place] [facility] 7 17:03:05 Date Recorded Body height Body weight Body mass index (BMI) Oxygen saturation Oxygen saturation in Arterial blood by Pulse oximetry Heart rate Body temperature Systolic blood pressure Diastolic blood pressure Provider Name and Address Organization Details Last Updated DateTime 7 177.8 cm 39998.8 6 g 21.5 kg/m2 98 % 98 % 124 /min 97.8 [degF] 124 mm[Hg] 68 mm[Hg] Jessa Winters MD Attn: Stephania [address]ckeon,[address] [place], [address], [facility] 7 02:31:43 Date Recorded Body height Body mass index (BMI) Body weight Heart rate Systolic blood pressure Diastolic blood pressure Provider Name and Address Organization Details Last Updated DateTime 7 177.8 cm 21.8 kg/m2 49002.6 g 76 /min 110 mm[Hg] 78 mm[Hg] Linda Jackson [facility] 7 16:28:47 Social History Question Answer Notes LastModified by Organizat ion Details LastModified Time Tobacco Smoking Status Never Smoker Jessa Winters MD Attn: [address] , [place], [address], [facility] 03/15/2017 17:28:56 What Is Your Level Of Alcohol Consumption? Moderate Vodka Or Amarhetto Information not available 08/24/2018 What Was The Date Of Your Most Recent Tobacco Screening? 08/24/2018 Information not available 05/31/2019 Do You Use Protection During Sex? No Information not available 08/24/2018 Are You Sexually Active? Yes Information not available 08/24/2018 Sex: Unknown Functional Status None recorded. Mental Status None recorded. Family History Relationship Description Onset Age of this Age Resolved Age Notes LastModified by Organization Details LastModified Time Mother Mitral valve prolapse Not available 2016 20:50:45 Medical History Condition Response Anxiety Disorder Y Depression Y Gynecological History Statement/Question Response Menses Monthly Y Date of LMP 06/10/2019 On BCP's at Conception? Y Obstetrics History GPAL:G 0 P 0 0 0 0 Immunizations Vaccine Type Date Status Note Provider Nam e and Address Organization Details Recorded Time HPV, quadrivalent 4 completed Not Available [facility] 12/08/2019 02:11:44 varicella 2 completed Not Available [facility] 11/10/2016 06:02:01 varicella 7 completed Not Available [facility] 11/10/2016 06:02:01 MMR 0 completed Not Available [facility] 11/10/2016 06:02:01 MMR 2 completed Not Available [facility] 11/10/2016 06:02:01 Hep B, adolescent or pediatric 7 completed Not Available [facility] 11/10/2016 06:02:01 Hep B, adolescent or pediatric 7 completed Not Available [facility] 11/10/2016 06:02:01 Hep B, adolescent or pediatric 8 completed Not Available [facility] 11/10/2016 06:02:01 Hib (PRP-OMP) 7 completed Not Available [facility] 11/10/2016 06:02:02 Hib (PRP-OMP) 7 completed Not Available [facility] 11/10/2016 06:02:02 Hib (PRP-OMP) 9 completed Not Available [facility] 11/10/2016 06:02:02 IPV 7 completed Not Available [facility] 11/10/2016 06:02:02 IPV 8 completed Not Available [facility] 11/10/2016 06:02:02 IPV 2 completed Not Available [facility] 11/10/2016 06:02:02 Tdap 2 completed Not Available [facility] 11/10/2016 06:02:03 HPV, quadrivalent 6 completed Not Available [facility] 11/10/2016 06:02:03 TST-PPD intradermal 4 completed Not Available [facility] 12/08/2019 02:11:44 IPV 7 completed Not Available [facility] 11/10/2016 06:02:03 DTP 8 completed Not Available [facility] 11/10/2016 06:02:03 DTP 2 completed Not Available [facility] 11/10/2016 06:02:04 DTP 7 completed Not Available [facility] 11/10/2016 06:02:04 DTP 7 completed Not Available [facility] 11/10/2016 06:02:04 DTP 9 completed Not Available [facility] 11/10/2016 06:02:04 Past Encounters Encounter ID Performer Location Encounter Start Date Encounter Closed Date Diagnosis/Indication Diagnosis SNOMED-CT Code Diagnosis ICD10 Code Diagnosis Note [id number] Jessa Winters MD [facility] [address] [place] [address] 03/15/2017 15:58:03 03/15/2017 17:53:11 Constipation 56099046 K59.00 Vitamin D deficiency 347 74302 E55.9 [id number] Jessa Winters MD [facility] [address] [place] [address] 04/12/2017 15:20:40 04/13/2017 15:16:13 Constipation 68107076 K59.00 no signs of obstructio n. She has no vomitting. She is drinking OK. Complains of pain with urination [id number] AMERICO Rodriguez [facility], [facility] [address] [place] [address] 04/21/2017 16:02:35 04/21/2017 17:07:32 Constipation [id number] K59.00 Linda will call to expedite her referral to Dr. Crain's office. [id number] Jessa Winters MD [facility], [facility] [address] [place] [address] 08/24/2018 15:36:21 08/25/2018 10:36:16 Acute gastroenteritis 79123122 K52.9 pt ed and precaution s given-- likely related to food ingestion but no fever or blood in stool-- no need for further evaluation unless not recovered in the next few days [id number] Jessa Winters MD [facility], [facility] [address] [facility] [address] [place] [address] 06/14/2019 15:14:25 06/15/2019 09:00:39 Tachycardia 7850777 R00.0 you have had testing at the ER-- I will get those records to assure that the electrolyt es, mineral and thryoid were checked Disturbance in mood 4469 9002 R45[address] Elsieo Diallo in a week and a half week about the medication and your new complaint of anxiety Panic disorder [id number] F41.[address] Liz Premenstru al dysphoric disorder 465106 F32.81 we discussed monophasic control of menses and you opt for the pill packet that is clearly delineated with how to take the OCs rather than the cycling with KARIVA every 12 weeks-- you think that would be confusing and prefer the pill packet designed for this method of cntracepti on Health Concerns Section Related Observation LastModified by Organization Detai ls LastModified Time None Recorded Concern Status LastModified by Organization Details LastModified Time None Recorded Advance Directives Directive None Recorded Payers Encounter Date Sequence Insurance Name Policy Number Policy Lopez Covered Member ID Lopez Member ID Guarantor Name 03/15/2017 1 [place] [id number] Johnathan Lang [id number] Zena Lang 04/12/2017 1 [place] [id number] Johnathan Lang [id number] Zena Lang 04/21/2017 1 [place] [id number] Johnathan Lang [id number] Zena Lang 08/24/2018 1 [place] [id number] Johnathan Lang [id number] Zena Lang 06/14/2019 1 [place] [id number] Johnathan Lang [id number] Zena Lang Notes Date Note Type Note Provider Name and Address Organization Details Recorded Time 03/15/2017 text/html Abdominal PainRe ported bypatient.Quality:pain ;bloating;sharp Severity:mild Duration:constant Onset/Timing:worse Context:none Modifying Factors:nothing gives relief; nothing makes it worse Associated Symptoms:no fever; no heartburn; no shortness of breath;chills;nausea;c onstipation;decreased appetite Other:noneNotes: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 Jessa Winters MD Attn: [address] [place], [address], 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 Stated missed work and needs a work excuse. States she feels 10 times worse has had to miss work due to the pain of bloating and constipation. She started Linzess a month ago. Took it and noted that she stopped taking if 3 days ago when she thought the constipation was worsening. She states she has not had a BM for 1 week. Jessa Winters MD Attn: [address] [place], [address], 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 States she feels 10 times worse . Constipation chronic since starting Geodon. Sees Rohini Diallo for this. Getting off of the Geodon is not an option. Did have a BM today and was a decent one. Did have some relief today. Has used several medications, no help, has used lots of enemas with partial benefit. Recent medication used the whole entire bottle that was 50$ and helped the most. Used phosphosoda twice with no help. Miralax 3 times a day. No pain currently, but will come back, for the short moment she has relief. AMERICO Rodriguez Attn: [address]ing[address] [place], [address], [facility] 04/21/2017 16:58:47 08/24/2018 text/html DiarrheaReported bypatient.Quality:freq uent;watery; no tenesmus Severity:moderate Duration:5 days Onset/Timin-3 times a day;worse in the morning;nocturnal diarrhea Context:no one else with similar symptoms; no recent camping; no recent picnic; no recent travel;possible food source; non stop on Tuesday Associated Symptoms:no excess gas; no fever; no rash; no joint pain; no weight loss; no heartburn; no blood in stool; no mucus in stool; no black or tarry stools; no fecal incontinence;abdominal pain;nausea;vomiting;w yeimy Winters MD Attn: [address] [place], [address], [facility] 08/24/2018 16:17:20 06/14/2019 text/html Anxiety/Depressi onRepo rted bypatient.Quality:symp toms worse in the evening;symptoms worse during the day; went to [facility] for racing heart rate dx with anxiety Severity:denies suicidal ideations; able to maintain relationships;interfer ence with household activities Duration:frequent; symptoms lasting over 2 weeks (months) Onset/Timing:gradual; still present Context:no major life stressors Modifying Factors:medications as directed Associated Symptoms:denies homicidal ideations; no significant weight gain; no significant weight loss; no visual/auditory hallucinations; no delusions; no crying spells; appetite good; energy good; maintaining functionality;high irritability;anxiety;h ypersensitivity;sleep disturbances;social withdrawal;palpitation s;paranoid, feeling persecuted;shortness of breath; she reports trouble with waking in the morning-- goes to bed at 10 pm and has to wake at 6 am-- for work at 7 am. Never lte fro work. 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
--- OUTSIDE RECORDS SUMMARY | 2025-01-17 17:22 | XMS_ITS | Clinical Summary ---
Author Organization [facility] Address [address], [facility] [address] [place] [address] Phone Care Team Providers Care Fly Tier Name Role Phone Jessa Wilkerson MD Primary Care Provider [phone] Allergies No known active allergies Medications VIORELE 0.15-0.02/0.01 MG (27/03) Tablet Take 1 Tab by mouth daily. 4 7 Active ziprasidone (GEODON) 80 MG Capsule TAKE ONE CAPSULE BY MOUTH IN THE EVENING 2 7 Active polyethylene glycol (MIRALAX) Powder Mix the entire bottle with 64 oz of a clear liquid. Use as directed by the office for colonoscopy prep. 255 g 7 Active lubiprostone (AMITIZA) 24 MCG Capsule Take 24 mcg by mouth 2 times daily (with meals). Active AMITIZA 24 MCG Capsule TAKE ONE CAPSULE BY MOUTH TWICE A DAY WITH MEALS 60 Cap 3 8 Active Family History Medical History Relation Name Comments No Known Problems Father Heart Disease Mother Relation Name Status Comments Father Alive Mother Alive Social History Tobacco Use Types Packs/Day Years Used Date Smoking Tobacco: Never Smokeless Tobacco: Never Alcohol Use Standard Drinks/Week Comments No 0 (1 standard drink = 0.6 oz pur e alcohol) Comments No Sex and Gender Information Value Date Recorded Sex Assigned at Not on file Legal Sex Female 3:56 PM CDT Gender Identity Not on file Sexual Orientation Not on file Last Filed Vital Signs Vital Sign Reading Time Taken Comments Blood Pressure 116/74 10/06/2017 1:10 PM [employer] Pulse 95 10/06/2017 1:10 PM [employer] Temperature 36.8 C (98.3 F) 10/06/2017 1:10 PM [employer] Respiratory Rate 20 10/06/2017 1:10 PM [employer] Oxygen Saturation 97% 10/06/2017 1:10 PM [employer] Inhaled Oxygen Concentration - - Weight 70.1 kg (154 lb 8 oz) 10/06/2017 1:10 PM [employer] Height 180.3 cm (5' 11 ) 10/06/2017 1:10 PM [employer] Body Mass Index 21.55 10/06/2017 1:10 PM [employer] Plan of Treatment Health Maintenance Due Date Last Done Comments Hepatitis C Virus (HCV) Screening 1997 Pap Smear 2018 Influenza Immunization (#1) 2024 SARS-COV-2 Immunization ( season) 2024 01/31/2021, 01/08/2021 Respiratory Syncytial Virus (RSV) Immunization (Adult) (1 - 1-dose 75+ series) 2072 Hepatitis B Immunization Completed 998, 1997, 1997 DTaP/Tdap/Td Immunization Discontinued 2011, 05/07/2002, 12/03/1998, Additional history exists TdaP Immunization Completed 05/26/2012 Human Papillomavirus (HPV) Immunization Discontinued 05/02/2016, 11/24/2015, 10/13/2015, Additional history exists Meningococcal Immunization (ACWY) Aged Out No longer eligible based on patient's age to complete this topic Pneumococcal Immunization Combined Aged Out No longer eligible based on patient's age to complete this topic Rotavirus Immunization Aged Out No lo nger eligible based on patient's age to complete this topic Insurance [facility] Care Teams Fly Tier Relationship Specialty Start Date End Date Jessa Wilkerson MD [address] [address] PCP - General Family Medicine 04/18/17
--- OUTSIDE RECORDS SUMMARY | 2025-01-17 17:26 | XMS_ITS | Data Portability ---
Author Organization [facility] Address [address] [place] [address] Care Team Providers Care Manager Rail Name Role Phone SOCORRO KNAPP Primary Care Provider [phone] Assessment No assessment recorded. Plan of Treatment Reminders Order Date Submit Date Provider Last Modified By Organization Details Last Modified Time Details Appointments SURG Diagnosti c Lap 2024 07:30A Peg JOSE MD Not available Not available Not available SURG POST OP 2024 03:30P Peg JOSE MD Not available Not available Not available Lab None recorded. Referral None recorded. Procedures None recorded. Surgeries laparosco py, diagnosti c (SURG) [address], [facility] [address], [address], 01/15/2025 10:02:06 salpingec yesi, laparosco pic (SURG) 2023 024 [facility], [facility] [address], [address], 12/28/2023 13:27:25 Imaging None recorded. Medication Orders Xulane 150 mcg-35 mcg/24 hr transderm al patch 2024 025 [id number], [address], [place], [place], [id number], 01/14/2025 15:30:27 Xulane 150 mcg-35 mcg/24 hr transderm al patch 2022 023 [facility] #[id number], [address] [facility], [place], [place], [id number], 01/14/2025 15:04:22 Xulane 150 mcg-35 mcg/24 hr transderm al patch 2022 023 [id number], [address], [place], [address], 01/14/2025 15:04:22 Patient TargetsNo targets recorded. Patient InstructionsNo instructions recorded. Reason for Referral None Reported. Results Created Date Observation Date Name Description Value Unit Range Abnormal Flag Note LastModifiedBy Organization Detail LastModifiedTime Result Notes None recorded. Problems Name Problem SNOMED Code Status Onset Date Resolution Date Notes Provider Name and Address Organization Details Recorded Time Breast lump [id number] Active 015 Breast lump;Recor ded Elsewhere: No Locatio n: [facility] Shruti rce: EHR Chroni c: N Practice ID: [id number] Billa ble Time: 08:30:00 AM Not Available [facility] 21:32:45 Problem Notes None recorded. Procedures Surgical History Date Name Laterality Status Provider Name and Address Organization Details Recorded Time 12/28/19 24 SALPINGECTOMY, LAPAROSCOPIC (SURG) completed Sherron Santiago [facility] 12/30/2023 16:40:16 04/27/20 23 Date of Last Pap Smear completed Luzma Elliott [facility] 10/27/2023 16:45:14 11/07/18 99 Remove tonsils and adenoids completed Ashlie Barlow [facility] 09/15/2020 10:14:01 Imaging Results None recorded. Procedure Notes None recorded. Medical Equipment None Reported. Allergies No known drug allergies Medications Name Sig Start Date Stop Date Status Note LastModified by Organization Details LastModified Time ziprasido ne 80 mg capsule 11/23 completed Not Available Not Available Not Available buspirone 5 mg tablet take 1 tablet by oral route 3 times every day 11/23 completed Prescrib ed Elsewher e: Yes Loca tion: [facility] odify By: je Erwin r DateTime : 07/04/20 19 03:30:00 PM Not Available Not Available Not Available prednison e 10 mg tablet 11/23 completed Not Available Not Available Not Available cetirizin e 10 mg tablet TAKE 1 TABLET BY MOUTH EVERY DAY 07/28 completed Not Available Not Available Not Available prazosin 1 mg capsule TAKE 1 CAPSULE BY MOUTH EVERY NIGHT AT BEDTIME active Not Available Not Available No t Available prednison e 20 mg tablet 11/23 completed Not Available Not Available Not Available Mircette (28) 0.15 mg-0.02 mg (21)/0.01 mg (5) tablet take 1 tablet by oral route every day 07/04 completed Prescrib ed Elsewher e: No Locat ion: [facility] odify By: je Erwin r DateTime : 05/14/20 10:36:50 AM Not Available Not Available Not Available oxycodone -acetamin ophen 5 mg-325 mg tablet TAKE 1 TABLET BY MOUTH EVERY 4 HOURS NEEDED FOR PAIN 01/14 completed Not Available Not Available Not Available propranol ol 10 mg tablet TAKE 1 TABLET BY MOUTH THREE TIMES A DAY NEEDED FOR TACHYCAR GODFREY 07/28 completed Not Available Not Available Not Available ziprasido ne 20 mg capsule take 1 capsule by oral route 2 times every day with food 11/23 completed Prescrib ed Elsewher e: Yes Loca tion: [facility] odify By: je Erwin r DateTime : 07/04/20 19 03:30:00 PM Not Available Not Available Not Available phenazopy ridine 100 mg tablet TAKE 2 TABLETS BY MOUTH TWICE DAILY WITH FOOD 01/14 completed Not Available Not Available Not Available metoprolo l succinate ER 25 mg tablet,ex tended release 24 hr TAKE 1 TABLET BY MOUTH EVERY DAY AT BEDTIME 01/14 completed Not Available Not Available Not Available ziprasido ne 60 mg capsule TAKE 1 CAPSULE BY MOUTH DAILY active Not Available Not Available No t Available fluticaso ne propionat e 50 mcg/actua tion nasal spray,daniel pension INSTILL 1 SPRAY EVERY DAY BY INTRANAS AL ROUTE 07/28 completed Not Available Not Available Not Available levonorge strel 0.15 mg-ethiny l estradiol 30 mcg tablets,3 mos pack(91) TAKE 1 TABLET BY MOUTH EVERY DAY 04/27 completed Not Available Not Available Not Available nitrofura ntoin monohydra te/macroc rystals 100 mg capsule 01/14 completed Not Available Not Available Not Available buspirone 11/23 completed Not Available Not Available Not Available L norgest/E estradiol -E estrad 0.15 mg-30 mcg (84)/10 mcg(7) tabs,3mos TAKE 1 TABLET BY MOUTH EVERY DAY 07/28 completed Not Available Not Available Not Available Xulane 150 mcg-35 mcg/24 hr transderm al patch Apply 1 patch every week by transder mal route as directed for 30 days. 2024 active Not Available Not Available Not Avai lable Slynd 4 mg (28) tablet Take 1 tablet every day by oral route with meals for 90 days. 07/28 completed Not Available Not Available Not Available Vitals Date Recorded Body height Body mass index (BMI) Body weight Systolic blood pressure Diastolic blood pressure Provider Name and Address Organization Details Last Updated DateTime 07/28/2023 179.07 cm 26.7 kg/m2 84199.96 g 120 mm[Hg] 72 mm[Hg] Adwoa Mei [facility] 3 17:01:40 Date Recorded Body height Body mass index (BMI) Body weight Systolic blood pressure Diastolic blood pressure Provider Name and Address Organization Details Last Updated DateTime 10/27/2023 179.07 cm 26 kg/m2 42549 g 116 mm[Hg] 74 mm[Hg] Luzma Elliott [facility] 3 16:44:49 Date Recorded Body height Body mass index (BMI) Body weight Systolic blood pressure Diastolic blood pressure Provider Name and Address Organization Details Last Updated DateTime 11/09/2023 179.07 cm 26 kg/m2 14716 g 133 mm[Hg] 80 mm[Hg] Maria Esther Leyva [facility] 4 16:39:26 Date Recorded Body height Body mass index (BMI) Body weight Systolic blood pressure Diastolic blood pressure Provider Name and Address Organization Details Last Updated DateTime 01/06/2024 179.07 cm 25.3 kg/m2 13333.03 g 102 mm[Hg] 67 mm[Hg] Angelia Gant [facility] 4 12:42:33 Date Recorded Body height Body mass index (BMI) Body weight Systolic blood pressure Diastolic blood pressure Provider Name and Address Organization Details Last Updated DateTime 01/14/2025 179.07 cm 27.4 kg/m2 26048.92 g 124 mm[Hg] 73 mm[Hg] Luzma Elliott [facility] 5 15:03:26 Social History Question Answer Notes LastModified by [email or web address] ion Details LastModified Time Tobacco Smoking Status Never Smoker Ashlie butts, [facility] 09/15/2020 17:24:00 What Is Your Level Of Alcohol Consumption? Occasional Information not available 09/15/2020 In The 14 Days Before Symptom Onset, Have You Had Close Contact With A Laboratory-confirm ed COVID-19 While That Case Was Ill? No Information n ot available 04/27/2023 In The 14 Days Before Symptom Onset, Have You Had Close Contact With A Person Who Is Under Investigation For COVID-19 While That Person Was Ill? No Information not available 04/27/2023 Have You Been To An Area Known To Be High Risk For COVID-19? No Information not available 04/27/2023 Sex: Unknown Functional Status Question Answer Note LastModified by Organizat ion Details LastModified Time What is your exercise level? Occasional Information not available 09/15/2020 Mental Status None recorded. Family History Relationship Description Onset Age of this Age Resolved Age Notes LastModified by Organization Details LastModified Time Mother Anemia [email or web address] Not available 10:13:24 Mother Cyst of ovary [email or web address] Not available 2019 10:13:42 Notes:Mother: Ovarian cyst, Anemia Medical History Condition Response Other Anemia Y Asthma Y Psychiatric Illness Y Gynecological History Statement/Question Response Abnormal Pap N Flow Heavy Date of LMP 12/30/2024 Was last menstrual period normal Y Duration of Flow (days) 5 Current Control Method Tubal Ligat ion Are cycles usually normal Y Frequency of Cycle (Q days) 28 Sexually Active? Y Menses Monthly Y Date of Last Pap Smear 04/27/2023 Sexual Problems? N LMP Definite Obstetrics History GPAL:G 0 P 0 0 0 0 Past Encounters Encounter ID Performer Location Encounter Start Date Encounter Closed Date Diagnosis/Indication Diagnosis SNOMED-CT Code Diagnosis ICD10 Code Diagnosis Note [id number] Shannon Edouard [place] [address] [address] 09/15/2020 16:38:51 09/16/2020 10:12:16 Gynecologic examination 63610241 Z01.419 Take Calcium with Vitamin D 1200mg daily if not receiving in daily diet. It is strongly advised to have an annual flu shot and up can obtain at most pharmacies . If you have not had a TDap shot in the last 10 years you should obtain one as well. Discussed with patient & provided with informatio n regarding Gardisil vaccine to prevent the 4 strains for HPV that cause cervical cancer if under age 26. Pt denies any history of abnormal paps. No new partners. Declined pap this year. Encourage safe sexual practices, to use condoms and limit partners if not already in a monogamous relationsh ip. Do monthly self breast exams. Happy with ocp and would like to continue. Consent read and signed. Have mammogram yearly or every other year depending on family history. BRCA testing is now available for patients with strong genetic history of female cancer. If interested contact the office. Engage in daily exercise of low impact aerobic exercise 45-60 minutes 4-5 times weekly. Avoid tobacco and illicit drugs as well as using moderation with alcohol intake less than 1-2 8 oz beverages daily. This lifestyle behavior pattern will lead to less health conditions and longer life span. If BMI greater than 25 weight watchers or dietary consult advised. Patient received above instructio ns, and questions have been answered. If you have any questions please call or respond to this email. Patient was made aware of the patient portal and may obtain a paper copy of today's plan if desired. [id number] Shannon Edouard [place] [address] [address] 11/23/2021 16:39:27 11/23/2021 17:19:18 Gynecologic examination 41635433 Z01.419 Z11.3 Z11.8 Take Calcium with Vitamin D 1200mg daily if not receiving in daily diet. It is strongly advised to have an annual flu shot and up can obtain at most pharmacies . If you have not had a TDap shot in the last 10 years you should obtain one as well. Discussed with patient & provided with informatio n regarding Gardisil vaccine to prevent the 4 strains for HPV that cause cervical cancer if under age 26. Had gardisil as a teen. Initially declined std screen but then agreed. Declines bloodwork. Encourage safe sexual practices, to use condoms and limit partners if not already in a monogamous relationsh ip. Do monthly self breast exams. Have mammogram yearly or every other year depending on family history. BRCA testing is now available for patients with strong genetic history of female cancer. If interested contact the office. Engage in daily exercise of low impact aerobic exercise 45-60 minutes 4-5 times weekly. Avoid tobacco and illicit drugs as well as using moderation with alcohol intake less than 1-2 8 oz beverages daily. This lifestyle behavior pattern will lead to less health conditions and longer life span. If BMI greater than 25 weight watchers or dietary consult advised.Kaminski ppy with ocp and would like to continue. Consent read and signed. Aware of interactio n. Wants to continue for mood/cycle control. Patient received above instructio ns, and questions have been answered. If you have any questions please call or respond to this email. Patient was made aware of the patient portal and may obtain a paper copy of today's plan if desired. [id number] [facility] [address] [address] 04/27/2023 16:32:51 04/27/2023 17:22:36 Gynecologic examination 12324990 Z01.419 Take Calcium with Vitamin D 1200mg daily if not receiving in daily diet. It is strongly advised to have an annual flu shot and up can obtain at most pharmacies . If you have not had a TDap shot in the last 10 years you should obtain one as well. Discussed with patient & provided with informatio n regarding Gardisil vaccine to prevent the 4 strains for HPV that cause cervical cancer if under age 26. Encourage safe sexual practices, to use condoms and limit partners if not already in a monogamous relationsh ip. Do monthly self breast exams. Have mammogram yearly or every other year depending on family history. BRCA testing is now available for patients with strong genetic history of female cancer. If interested contact the office. Engage in daily exercise of low impact aerobic exercise 45-60 minutes 4-5 times weekly. Avoid tobacco and illicit drugs as well as using moderation with alcohol intake less than 1-2 8 oz beverages daily. This lifestyle behavior pattern will lead to less health conditions and longer life span. If BMI greater than 25 weight watchers or dietary consult advised. Patient received above instructio ns, and questions have been answered. If you have any questions please call or respond to this email. Patient was made aware of the patient portal and may obtain a paper copy of today's plan if desired.Jeremiah dee sentSTD Screen sent Genetic Screen Colon Screen Dexa Screen Routine Labs Contracept ion care management [id number] Z30.9 Trial of SLYNDSampl es givenRTO x 3mos Feels her current OCP might be connected to the random bouts of tachycardi a she will experience at times.Mary savage cardiologi st.Wants to see if switching to progestin only method will improve this.We did talk about d/c of all hormonal BC as well moving forward to further determine if there is a connection . Will consider. [id number] Ignacia Joiner , [facility] [address] [address] 07/28/2023 16:49:30 07/29/2023 09:55:14 Contraception care management [id number] Z30.9 Med check of SLYNDDid not like period regulation with this one.Would like to trial patch. Discussed all control options in great detail. Pt would like to start xulane patch. She is aware of the risks and benefits. Informed her it may not be as effective for contracept ion since her weight is over 198 lbs. She does not have any medical condition that is contraindi cated with the use of estrogen containing control. Pt will place the patch on the first tuesday following the start of her period and then replace weekly x 2 (total of 3 patches over 3 weeks) and week 4 no patch. She is aware it is not effective for control the first month and may be less effective d/t her weight. She is also aware that she will need to check placement daily to ensure it has not come off. Encouraged use of condoms as the nuvaring does not protect against STD's. Will return in 3 months for med check. Consent was read and signed. Pt verbalized understand ing. RTO x 3mos med check Time spent in visit is a total of 20 mins with at least 50% of visit consisting of counseling and review of plan of care. [id number] ASHLEE [facility] [address] [address] 10/27/2023 16:34:05 10/27/2023 17:54:00 Contraception care management 458216383 Z30.9 Patient is here today for a medicaton check of control. She voices goals of therapy have been met with use of this therapy. She denies neg side effects. She is eating, drinking, sleeping well; moods are stable & periods are well regulated. Wishes to continue this method of BC. Appropriat e to continue this medication . Time spent in visit is a total of 22 mins with at least 50% of visit consisting of counseling and review of plan of care. Wishes to discuss possibilit y of tubal ligation-- due to health issues/ris ks associated with . Referred to Dr. Jose for consult to discuss this option. [id number] Ruslan Jose MD [place] [address] [address] 11/09/2023 16:17:09 11/10/2023 09:01:58 Female sterilization 04197293 Z30.2 This patient is a 28-year-ol d Female with severe psychiatri c issues. She is schizophre cayla that is treated with antipsycho tics. She can not bear the responsibi lity of children per the patient. She can not discontinu e her medication .This patient presents for female sterilizat ion. The patient desires . She is certain that she no longer wants to be fertile. We discussed sterilizat ion in detail. I described the procedure to the patient in detail. We discussed alternativ es. The patient knows they are highly effective reversible options I explained laparoscop ic salpingect gurmeet you to her in great detail.. The patient understand s and is ready to proceed with laparoscop ic bilateral tubal ligation. She understand s the tubes will be removed. She knows this is not reversible . we spent 40 minutes face-to-fa ce. We made a decision to perform surgery. We will move forward with laparoscop ic bilateral salpingect gurmeet. [id number] Ruslan Jose MD [place] [address] [address] 01/06/2024 12:35:10 01/06/2024 13:11:17 Postoperative care [id number] Z48.89 This patient is a 28-year-ol d female who presents for postop follow-up. She is 1 week postop from a laparoscop ic bilateral salpingect gurmeet. Her incisions are clean dry and intact. She has no complaints . She is recovering normally. She will follow up as needed. [id number] Ruslan Jose MD [place] [address] [address] 01/14/2025 14:43:54 01/15/2025 03:42:26 Endometriosis of pelvis 33256052 N80.9 Pain in pelvis 75454540 R10.2 This patient is a 29-year-ol d female with endometrio sis and severe pelvic pain. We have agreed to perform diagnostic laparoscop y. She understand s risks, benefits, and alternativ es. She has completed the informed consent process is ready to proceed. I spent over 30 minutes on the patient's care in total today. We made a decision to perform surgery. Health Concerns Section Related Observation LastModified by Organization Detai ls LastModified Time None Recorded Concern Status LastModified by Organization Details LastModified Time None Recorded Advance Directives Directive None Recorded Payers Encounter Date Sequence Insurance Name Policy Number Policy Lopez Covered Member ID Lopez Member ID Guarantor Name 10/27/2023 1 [facility] [id number] Zean Lang [id number] 11/09/2023 1 [facility] [id number] Zena Lang [id number] 01/06/2024 1 [facility] [id number] Zena Lang [id number] 01/14/2025 1 [facility]: (PPO) [id number] Zena Lang [id number] Notes Date Note Type Note Provider Name and Address Organization Details Recorded Time 07/28/2023 text/html Her today for medication check. Ignacia Joiner [facility] [address], [place], [address], [facility] 07/28/2023 18:37:59 10/27/2023 text/html Here today for b irth control med check of xulane. Ignacia Joiner [facility] [address], [place], [address], [facility] 10/27/2023 17:48:42 11/09/2023 text/html This patient is a 28-year-old Female with severe psychiatric issues. She is schizophrenia that is treated with antipsychotics. She can not bear the responsibility of children per the patient. She can not discontinue her medication.This patient presents for female sterilization. The patient desires . She is certain that she no longer wants to be fertile. We discussed sterilization in detail. I described the procedure to the patient in detail. We discussed alternatives. The patient knows they are highly effective reversible options I explained laparoscopic salpingectomy you to her in great detail.. The patient understands and is ready to proceed with laparoscopic bilateral tubal ligation. She understands the tubes will be removed. She knows this is not reversible. Ruslan Jose MD [address], [place], [address], [facility] 11/09/2023 18:58:50 01/06/2024 text/html This patient is a 28-year-old female who presents for postop follow-up. She is 1 week postop from a laparoscopic bilateral salpingectomy. Her incisions are clean dry and intact. She has no complaints. She is recovering normally. She will follow up as needed. Ruslan Jose MD [address], [place], [address], [facility] 01/06/2024 13:10:04 01/14/2025 text/html this patient is a 29-year-old female with pelvic pain and diagnosed endometriosis. It was seen on a laparoscopic bilateral salpingectomy. We discussed endometriosis in detail. She has severe pelvic pain. Has pain at the time of her periods. She has pain leading up to her menses. We discussed treatment options. The patient wants definitive surgical treatment. We talked about diagnostic laparoscopy and resection of endometriosis. The patient understands the procedure. The procedure was described to the patient in great detail. the patient also understands the risks. The risks were also explained in detail. She understands that injuries May occur during surgery. She understands these injuries can result in hospitalization, more surgery, and severe illness. She understands there is risk of hemorrhage and infection. Ruslan Jose MD [address], [place], [address], [facility] 01/14/2025 18:11:53 OBGyn Episode No OBEpisode recorded.
--- OUTSIDE RECORDS SUMMARY | 2025-01-17 17:27 | XMS_ITS | Data Portability ---
Author Organization [facility] [employer], Main Office Address [address] [place] [address] Assessment No assessment recorded. Plan of Treatment Reminders Order Date Submit Date Provider Last Modified By Organization Details Last Modified Time Details Appointments None recorded. Lab PTH (parathyroi d hormone), intact, serum or plasma 2022 023 [email or web address] [facility] (Lab), [address] [place], [address], 3 17:31:56 calcium, ionized, blood 2022 023 [email or web address] [id number] [facility] (Lab), [address] [place], [address], 3 14:31:01 magnesium, serum or plasma 2022 023 [email or web address] [facility] (Lab), [address] [place], [address], 3 16:36:52 CMP, serum or plasma 2022 023 [email or web address] [facility], [address] [place], [address], 3 16:37:20 iron + TIBC + ferritin, serum 2022 023 5 [facility], [address] [place], [address], 3 19:27:11 TSH, serum or plasma 2022 023 [email or web address] [facility], [address] [place], [address], 3 16:37:45 CBC 2022 023 [email or web address] [facility], [address] [place], [address], 3 16:37:55 Referral None recorded. Procedures None recorded. Surgeries None recorded. Imaging US, echocardiog peyton, transthorac ic, complete, w/ color flow - please call pt to schedule 2022 023 [facility] (Cardiology & Em[facility]), [address] [place] [address] [address], [place], [address], 3 11:12:46 electrocard iogram 2022 023 [email or web address] [facility] [address], [place], [address], 3 16:35:48 Medication Orders metoprolol succinate ER 25 mg tablet,exte nded release 24 hr 2022 023 [facility]acy #[id number], [address] [place], [address], 3 16:24:22 propranolol 10 mg tablet 2022 023 [email or web address] 5 [facility]/Pharmacy #[id number], [address] [place], [address], 3 18:29:07 metoprolol succinate ER 25 mg tablet,exte nded release 24 hr 2022 023 [email or web address] 5 [facility]/Pharmacy #[id number], [address] [place], [address], 3 18:31:45 propranolol 10 mg tablet 2022 023 [facility]/Pharmacy #[id number], [address] [place], [address], 16:18:26 Patient TargetsNo targets recorded. Patient InstructionsNo instructions recorded. Reason for Referral None Reported. Results Created Date Observation Date Name Description Value Unit Range Abnormal Flag Note LastModifiedBy Organization Detail LastModifiedTime 01/29/2001/28/2023 CBC W/O DIFFE RENTI AL white blood cells 11.1 x10'3 /uL 4.2-10 .8 high Not Available [facility] (Lab) [address] [place], [address], 01/28/2023 19:31:10 01/29/2001/28/2023 CBC W/O DIFFE RENTI AL red blood cells 4.97 x10'6 /uL 3.80-5 .20 Not Available [facility] (Lab) [address] [place], [address], 01/28/2023 19:31:10 01/29/2001/28/2023 CBC W/O DIFFE RENTI AL hemoglobin 15.0 g/dL 12.0-1 5.6 Not Available [facility] (Lab) [address] [place], [address], 01/28/2023 19:31:10 01/29/2001/28/2023 CBC W/O DIFFE RENTI AL hematocrit 43.9 % 35.7-4 5.7 Not Available [facility] (Lab) [address] [place], [address], 01/28/2023 19:31:10 01/29/2001/28/2023 CBC W/O DIFFE RENTI AL mean red cell volume 88.3 fL 82.0-9 9.0 Not Available [facility] (Lab) [address] [place], [address], 01/28/2023 19:31:10 01/29/20 23 01/28/2023 CBC W/O DIFFE RENTI AL mean red cell hemoglobin 30.2 pg 27.0-3 3.0 Not Available [facility] (Lab) [address] [place], [address], 01/28/2023 19:31:10 01/29/2001/28/2023 CBC W/O DIFFE RENTI AL mean RBC HGB concentratio n 34.2 g/dL 31.0-3 6.0 Not Available [facility] (Lab) [address] [place], [address], 01/28/2023 19:31:10 01/29/2001/28/2023 CBC W/O DIFFE RENTI AL red cell distribution width 12.3 % 11.8-1 5.5 Not Available [facility] (Lab) [address] [place], [address], 01/28/2023 19:31:10 01/29/20 23 01/28/2023 CBC W/O DIFFE RENTI AL platelets 346 x10'3 /uL 150-40 0 Not Available [facility] (Lab) [address] [place], [address], 01/28/2023 19:31:10 01/29/2001/28/2023 CBC W/O DIFFE RENTI AL mean platelet volume 10.2 fL 9.0-12 .4 Not Available [facility] (Lab) [address] [place], [address], 01/28/2023 19:31:10 01/29/2001/28/2023 COMPR EHENS HAROON METAB OLIC PANEL sodium 137 mmol/ L 137-14 5 Not Available [facility] (Lab) [address] [place], [address], 01/28/2023 19:42:40 01/29/2001/28/2023 COMPR EHENS HAROON METAB OLIC PANEL potassium 3.7 mmol/ L 3.5-5. 1 Not Available [facility] (Lab) [address] [place], [address], 01/28/2023 19:42:40 01/29/20 23 01/28/2023 COMPR EHENS HAROON METAB OLIC PANEL chloride 101 mmol/ L 98-107 Not Available [facility] (Lab) [address] [place], [address], 01/28/2023 19:42:40 01/29/20 23 01/28/2023 COMPR EHENS HAROON METAB OLIC PANEL carbon dioxide 26 mmol/ L 22-30 Not Available [facility] (Lab) [address] [place], [address], 01/28/2023 19:42:40 01/29/20 23 01/28/2023 COMPR EHENS HAROON METAB OLIC PANEL anion gap 13.7 mmol/ L 14-22 low Not Available [facility] (Lab) [address] [place], [address], 01/28/2023 19:42:40 01/29/20 23 01/28/2023 COMPR EHENS HAROON METAB OLIC PANEL glucose 86 mg/dL 70-99 Not Available [facility] (Lab) [address] [place], [address], 01/28/2023 19:42:40 01/29/20 23 01/28/2023 COMPR EHENS HAROON METAB OLIC PANEL BUN 11 mg/dL 8-19 Not Available [facility] (Lab) [address] [place], [address], 01/28/2023 19:42:40 01/29/20 23 01/28/2023 COMPR EHENS HAROON METAB OLIC PANEL creatinine 0.60 mg/dL 0.66-1 .25 low Not Available [facility] (Lab) [address] [place], [address], 01/28/2023 19:42:40 01/29/20 23 01/28/2023 COMPR EHENS HAROON METAB OLIC PANEL GFR >60 Refer ence Range : [place] [facility] GFR Healt hy Adult : >60 mL/mi n/1.7 3 m2 Chron ic Kidne y Disea se: 15-60 mL/mi n/1.7 3 m2 Kidne y Failu re: <15/m L/min /1.73 m2 www.n [facility]k. [facility].g ov The MDRD study equat ion has not been valid ated in child jeffry <18 years of age; pregn ant women ; the elder ly >85 years of age; or in some racia l or ethni c subgr oups, such as Hisyung nics. Outsi de the valid ated eric eters , estim ated GFR is less accur ate, requi ring clini chuck judgm ent on a case- by-ca se basis . Clini chuck inter preta tion for other races and ages must be made by the clini ana. The MDRD study equat ion has not been valid ated for the evalu ation of serum creat inine relat ed to nutri vandana l statu s or medic ation usage . For perso ns <18 years of age, a pedia tric GFR calcu lator is avail able on the [facility] websi te: https ://rina hopkins.jerry gaston.o rg/pr ofess ional s/kdo qi/gf r_cal culat or Not Available [facility] (Lab) [address] [place], [address], 01/28/2023 19:42:40 01/29/2001/28/2023 COMPR EHENS HAROON METAB OLIC PANEL alkaline phosphatase 64 U/L 38-126 Not Available [facility] (Lab) [address] [place], [address], 01/28/2023 19:42:40 01/29/20 23 01/28/2023 COMPR EHENS HAROON METAB OLIC PANEL alanine aminotransfe rase 28 U/L 0-35 Not Available [facility] (Lab) [address] [place], [address], 01/28/2023 19:42:40 01/29/20 23 01/28/2023 COMPR EHENS HAROON METAB OLIC PANEL aspartate aminotransfe rase 30 U/L 15-37 Not Available [facility] (Lab) [address] [place], [address], 01/28/2023 19:42:40 01/29/20 23 01/28/2023 COMPR EHENS HAROON METAB OLIC PANEL bilirubin, total 0.50 mg/dL 0.20-1 .30 Not Available [facility] (Lab) [address] [place], [address], 01/28/2023 19:42:40 01/29/20 23 01/28/2023 COMPR EHENS HAROON METAB OLIC PANEL calcium 10.5 mg/dL 8.4-10 .2 high Not Available [facility] (Lab) [address] [place], [address], 01/28/2023 19:42:40 01/29/20 23 01/28/2023 COMPR EHENS HAROON METAB OLIC PANEL total protein 7.2 g/dL 6.3-8. 2 Not Available [facility] (Lab) [address] [place], [address], 01/28/2023 19:42:40 01/29/20 23 01/28/2023 COMPR EHENS HAROON METAB OLIC PANEL albumin 4.6 g/dL 3.4-5. 0 Not Available [facility] (Lab) [address] [place], [address], 01/28/2023 19:42:40 01/29/20 23 01/28/2023 COMPR EHENS HAROON METAB OLIC PANEL globulin 2.6 g/dL 2.6-4. 2 Not Available [facility] (Lab) [address] [place], [address], 01/28/2023 19:42:40 01/29/2001/28/2023 COMPR EHENS HAROON METAB OLIC PANEL A/G ratio 1.8 ratio 1.0-2. 0 Not Available [facility] (Lab) [address] [place], [address], 01/28/2023 19:42:40 01/29/20 23 01/28/2023 MAGNE SIUM magnesium 1.9 mg/dL 1.6-2. 3 Not Available [facility] (Lab) [address] [place], [address], 01/28/2023 19:42:44 01/29/2001/28/2023 TSH thyroid-stim ulating hormone 2.430 uIU/m L 0.465- 4.680 Not Available [facility] (Lab) [address] [place], [address], 01/28/2023 20:05:34 01/29/20 23 01/28/2023 IRON/ TIBC PANEL total iron binding capacity 363 mcg/d L 265-47 5 Not Available [facility] (Lab) [address] [place], [address], 01/28/2023 20:27:05 01/29/2001/28/2023 IRON/ TIBC PANEL % transferrin saturation 28 % 20-55 Not Available [facility] (Lab) [address] [place], [address], 01/28/2023 20:27:05 01/29/20 23 01/28/2023 IRON/ TIBC PANEL unsaturated iron bind capacity 263 mcg/d L 126-38 2 Not Available [facility] (Lab) [address] [place], [address], 01/28/2023 20:27:05 01/29/20 23 01/28/2023 IRON/ TIBC PANEL iron 100 mcg/d L 42-175 Not Available [facility] (Lab) [address] [place], [address], 01/28/2023 20:27:05 01/29/20 23 01/31/2023 DEREK TIN ferritin 59 NG/mL 6.24-1 37 Not Available [facility] (Lab) [address] [place], [address], 01/31/2023 13:12:49 02/24/20 23 02/23/2023 PARAT HY.HO RM(PT H)INT ACT-W /O CA intact parathyroid hormone 43.4 pg/mL 24.0-7 8.0 Pleas e note new refer ence range effec tive 12/03 . Not Available [facility] (Lab) [address] [place], [address], 02/23/2023 20:41:50 02/24/20 23 02/25/2023 CALCI UM, IONIZ ED/LC calcium, ionized, serum 4.8 mg/dL 4.5-5. 6 Perfo [place]med at: [place] [address] Lab Direc tor: Miguel mckenzie PhD, Phone : [phone] Not Available [facility] (Lab) [address] [place], [address], 02/25/2023 15:11:06 01/29/20 23 elect maki diogr am No observ ation record ed. [email or web address] [facility] [address], [place], [address], 01/28/2023 16:28:49 02/19/20 23 02/18/2023 US, echoc ardio gram, trans thora cic, compl ete, w/ color flow No observ ation record ed. [email or web address] [address], [place], [address], 02/23/2023 16:07:02 Result Notes None recorded. 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 Procedures Surgical History Date Name Laterality Status Provider Name and Address Organization Details Recorded Time lumpectomy of breast completed Not Available [facility] 01/05/2023 20:01:23 Imaging Results Imaging Date Name Status LastModified by Organization Details LastModified Time 01/28/2023 electrocardiogram completed [email or web address] [facility] [address], [place], [address], 01/28/2023 16:28:49 02/18/2023 US, echocardiogram, transthoracic, complete, w/ color flow completed [address], [place], [address], 02/23/2023 16:07:02 Procedure Notes None recorded. Medical Equipment None Reported. Allergies No known drug allergies Medications Name Sig Start Date Stop Date Status Note LastModified by Organization Details LastModified Time ziprasidone 80 mg capsule TAKE ONE CAPSULE BY MOUTH IN THE EVENING WITH MEALS 08/04 completed Not Available Not Available Not Available buspirone 5 mg tablet 08/04 completed Not Available Not Available Not Available prednisone 10 mg tablet PLEASE SEE ATTACHED FOR DETAILED DIRECTION S active Not Available Not Available No t Available cetirizine 10 mg tablet TAKE 1 TABLET BY MOUTH EVERY DAY active Not Available Not Available No t Available prednisone 20 mg tablet Take 1 tablet every day by oral route for 5 days. active Not Available Not Available No t Available levonorgest rel 0.15 mg-ethinyl estradiol 0.03 mg tablet Take 1 tablet every day by oral route. 2020 active Not Available Not Available Not Avai lable prednisone 10 mg tablets in a dose pack Take 1 tab by mouth, 3 times a day for 3 daysTake 1 tab by mouth 2 times a day for 2 daysTake 1 tab by mouth once a day for 1 day active Not Available Not Available No t Available propranolol 10 mg tablet TAKE 1 TABLET BY MOUTH THREE TIMES A DAY NEEDED FOR TACHYCARD [place] 2022 active Not Available Not Available Not Avai lable Levaquin 500 mg tablet Take 1 tablet every 24 hours by oral route. active Not Available Not Available No t Available metoprolol succinate ER 25 mg tablet,exte nded release 24 hr TAKE 1 TABLET BY MOUTH EVERY DAY AT BEDTIME active Not Available Not Available No t Available polyethylen e glycol 3350 17 gram/dose oral powder MIX ENTIRE BOTTLE WITH 64 OZ OF CLEAR LIQUID USE DIRECTED FOR COLONSCOP Y 04/24 completed Not Available Not Available Not Available ziprasidone 60 mg capsule TAKE 1 CAPSULE BY MOUTH EVERY EVENING WITH FOOD active Not Available Not Available No t Available fluticasone propionate 50 mcg/actuati on nasal spray,suspe nsion INSTILL 1 SPRAY EVERY DAY BY INTRANASA L ROUTE active Not Available Not Available No t Available levonorgest rel 0.15 mg-ethinyl estradiol 30 mcg tablets,3 mos pack(91) TAKE 1 TABLET BY MOUTH EVERY DAY active Not Available Not Available No t Available diazepam 5 mg-7.5 mg-10 mg rectal kit set syringes to 10mg will administe r in office 08/04 completed Not Available Not Available Not Available Amitiza 24 mcg capsule 08/04 completed Not Available Not Available Not Available OsmoPrep 1.5 gram (1.102-0.39 8) tablet 04/24 completed Not Available Not Available Not Available L norgest/E estradiol-E estrad 0.15 mg-30 mcg (84)/10 mcg(7) tabs,3mos TAKE 1 TABLET BY MOUTH EVERY DAY active Not Available Not Available No t Available Viorele (28) 0.15 mg-0.02 mg (21)/0.01 mg (5) tablet 08/04 completed Not Available Not Available Not Available Zafemy 150 mcg-35 mcg/24 hr transdermal patch APPLY 1 PATCH TOPICALLY TO THE SKIN EVERY WEEK DIRECTED active Not Available Not Available No t Available Vitals Date Recorded Body mass index (BMI) Body height Body weight Provider Name and Address Organization Details Last Updated DateTime 08/04/2021 25.1 kg/m2 180.34 cm 18827.63 g Not Available [facility] 01/05/2023 20:01:45 Date Recorded Body height Systolic blood pressure Diastolic blood pressure Provider Name and Address Organization Details Last Updated DateTime 08/05/2021 180.34 cm 130 mm[Hg] 78 mm[Hg] Not Available [facility] 01/05/2023 20:01:44 Date Recorded Body height Body mass index (BMI) Body weight Body temperature Heart rate Oxygen saturation Oxygen saturation in Arterial blood by Pulse oximetry Systolic blood pressure Diastolic blood pressure Provider Name and Address Organization Details Last Updated DateTime 3 180.34 cm 27.3 kg/m2 73860.1 g 97.7 [degF] 88 /min 98 % 98 % 120 mm[Hg] 60 mm[Hg] Angeles Vila MA [facility] [employer] 3 15:46:43 Date Recorded Body height Body mass index (BMI) Body weight Body temperature Heart rate Oxygen saturation Oxygen saturation in Arterial blood by Pulse oximetry Systolic blood pressure Diastolic blood pressure Provider Name and Address Organization Details Last Updated DateTime 3 180.34 cm 27.2 kg/m2 83287.5 1 g 97.8 [degF] 86 /min 99 % 99 % 116 mm[Hg] 74 mm[Hg] Sameera Watts RN [facility] [employer] 3 16:02:26 Social History Question Answer Notes LastModified by Organizat ion Details LastModified Time Tobacco Smoking Status Never Smoker Not Available [facility] 01/05/2023 20:01:17 Do You Have An Advance Directive? No [id number] Information not available 01/05/2023 What Is Your Level Of Alcohol Consumption? Moderate MIGRATION.[id number] 3683 Information not available 01/05/2023 Do You Wear A Helmet When Biking? Yes MIGRATION.[id number] 6104 Information not available 01/05/2023 What Is Your Level Of Caffeine Consumption? Moderate MIGRATION.[id number] 7031 Information not available 01/05/2023 In The 14 Days Before Symptom Onset, Have You Had Close Contact With A Laboratory-confir med COVID-19 While That Case Was Ill? No MIGRATION.[id number] 0840 Information not available 01/05/2023 In The 14 Days Before Symptom Onset, Have You Had Close Contact With A Person Who Is Under Investigation For COVID-19 While That Person Was Ill? No MIGRATION.103661 3894 Information not available 01/05/2023 What Type Of Diet Are You Following? REGULAR MIGRATION.306174 3396 Information not available 01/05/2023 What Is The Highest Grade Or Level Of School You Have Completed Or The Highest Degree You Have Received? 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 No MIGRATION.[id number] 0348 Information not available 01/05/2023 What Is The Fluoride Status Of Your Home? Unknown MIGRATION.808053 9464 Information not available 01/05/2023 Are There Any Guns Present In Your Home? No MIGRATION.[id number] 8688 Information not available 01/05/2023 Do You Use Insect Repellent Routinely? Yes MIGRATION.[id number] 1157 Information not available 01/05/2023 [facility].278621 8950 Information not available 01/05/2023 Do You Have A Medical Power Of Acid Washer Operator? No MIGRATION.874276 8529 Information not available 01/05/2023 Have You Ever Been Counseled For Unhealthy Alcohol Use? No MIGRATION.298457 3454 Information not available 01/05/2023 Do You Have Any Pets? Yes MIGRATION.328751 3653 Information not available 01/05/2023 What Is Your Relationship Status? Single MIGRATION.345157 4779 Information not available 01/05/2023 Do You Use Your Seat Belt Or Car Seat Routinely? Yes MIGRATION.344988 7415 Information not available 01/05/2023 Do You Have Smoke And Carbon Monoxide Detectors In Your Home? Yes MIGRATION.979573 5142 Information not available 01/05/2023 Are You Passively Exposed To Smoke? No MIGRATION.263269 0830 Information not available 01/05/2023 Are There Any Smokers In Your House? No MIGRATION.042953 5467 Information not available 01/05/2023 Do You Participate In Social Media? Yes MIGRATION.931755 9111 Information not available 01/05/2023 What Types Of Sporting Activities Do You Participate In? None MIGRATION.176455 1209 Information not available 01/05/2023 Do You Feel Stressed (tense, Restless, Nervous, Or Anxious, Or Unable To Sleep At Night)? [id number] MIGRATION.355231 8760 Information not available 01/05/2023 Do You Use Any Illicit Or Recreational Drugs? No MIGRATION.969601 8782 Information not available 01/05/2023 Do You Use Sunscreen Routinely? Yes MIGRATION.169073 5440 Information not available 01/05/2023 Has Tobacco Cessation Counseling Been Provided? No MIGRATION.948714 7933 Information not available 01/05/2023 Have You Recently Traveled Abroad? No MIGRATION.366910 2053 Information not available 01/05/2023 Are You Currently In School? No MIGRATION.347698 6560 Information not available 01/05/2023 Do You Have Any Dietary Restrictions? No MIGRATION.770548 2711 Information not available 01/05/2023 Do You Or Have You Ever Used Any Other Forms Of Tobacco Or Nicotine? No MIGRATION.371626 8561 Information not available 01/05/2023 Sex: Unknown Functional Status Question Answer Note LastModified by Organizat ion Details LastModified Time What is your exercise level? Occasional [id number] 26 Information not available 01/05/2023 Mental Status None recorded. Family History Relationship Description Onset Age of this Age Resolved Age Notes LastModified by Organization Details LastModified Time Father No current problems or disability [id number] Not available 01/05/2023 20:01:24 Mother No current problems or disability [id number] Not available 01/05/2023 20:01:24 Medical History No medical history recorded. Gynecological History Statement/Question Response How many live births 0 Abnormal Pap N Flow Moderate Date of LMP Dislike of Light during Menstrual Headac he N Menses Monthly N Date of Last Pap Duration of Flow (days) 5 Current Control Method BCPs Breast Problems none Obstetrics History GPAL:G 0 P 0 0 0 0 Type Value Living 0 Total 0 Past Encounters Encounter ID Performer Location Encounter Start Date Encounter Closed Date Diagnosis/Indication Diagnosis SNOMED-CT Code Diagnosis ICD10 Code Diagnosis Note [id number] [address] [place] [address] 08/04/2021 00:00:00 08/04/2021 16:51:[id number] [address] 08/05/2021 00:00:00 08/05/2021 17:50:52 [id number] JELENA Whitaker [address] [address] 01/28/2023 15:30:54 01/28/2023 16:35:48 Intermittent palpitations 220570846 R00.2 R00.0 Chronic, recurrentW ill check labs, ekg and send for echo.In the meantime, start metoprolol 25mg ER QHS. Continue propranolo l 10mg TID PRNPatient advised to call if palpitatio ns get worse or there are any associated chest pain, shortness of breath and/or dizziness. [id number] JELENA Whitaker [address] [address] 02/23/2023 15:56:49 02/23/2023 16:33:39 Diastolic dysfunction 4401731 I51.9 New finding on echo (02/18/23)G rade II diastolic dysfunctio nEncourage d pt to work on good diet and routine cardiovasc ular exercise to strengthen heart.Will plan for yearly echo and consider cardiology referral if any changes. Hypercalcemia 81783615 E 83.52 New finding on labsCa 10.5 (01/28/23)W ill check PTH and ionized ca. Intermitte nt palpitations 572851538 R00.2 R00.0 Improved with beta blockers.L abs ok, echo indicates mild diastolic dysfunctio n.Continue metoprolol 25mg ER QHS.Contin ue propranolo l 10mg TID PRNPatient advised to be seen if palpitatio ns get worse or there are any associated chest pain, shortness of breath and/or dizziness. Health Concerns Section Related Observation LastModified by Organization Detai ls LastModified Time None Recorded Concern Status LastModified by Organization Details LastModified Time None Recorded Advance Directives Directive N: Payers Encounter Date Sequence Insurance Name Policy Number Policy Lopez Covered Member ID Lopez Member ID Guarantor Name 01/28/2023 1 [facility]: ([facility]) [id number] Johnathan Lang [id number] Zena Lang 02/23/2023 1 [place] [id number] Johnathan Lang [id number] Zena Lang Notes Date Note Type Note Provider Name and Address Organization Details Recorded Time 01/28/2023 text/html 1. Pt in office for f/u on palpitations. Pt states her normal is about 109, but it has gotten up into the 130s last week. Pt states resting HR is rarely below 100. Pt states she does sometimes get pain with sx. Pt states she has been to ER several times for sx, but gets sent home with no testing and told it's just anxiety. Pt states sx improve for about 45 min if she takes the propranolol. Apple Bertrand, [facility] [address], [facility] [address], [place], [address], [facility] 01/28/2023 18:32:41 02/23/2023 text/html 02/23/23: 1. Pt i n office for 3 week f/u appt. Pt states she is feeling better and sleeping better with being on the metoprolol. Pt states she hasn't needed the propranolol at all since last visit. 01/28/23: 1. Pt in office for f/u on palpitations. Pt states her normal is about 109, but it has gotten up into the 130s last week. Pt states resting HR is rarely below 100. Pt states she does sometimes get pain with sx. Pt states she has been to ER several times for sx, but gets sent home with no testing and told it's just anxiety. Pt states sx improve for about 45 min if she takes the propranolol. Apple Bertrand, [employer] [address], [facility] [address], [place], [address], [place] [facility] 02/23/2023 17:01:07 OBGyn Episode No OBEpisode recorded.
== END 2025-01-17 16:35 | disposition home or self-care (01) ==
PROVIDERS: Emergency Provider Nurse Practitioner Family
DX: R53.83 Other fatigue (principal); R53.1 Weakness
CPT/HCPCS: 81003; 82948; 99212; G0463

== ENCOUNTER 2025-01-23 01:18 | Day surgery (SDC) | payer BC, SELFPAY ==
[2025-01-16 08:23] VITALS: BMI 27.1
--- NOTE | 2025-01-16 08:25 | PC.NURSE ---
Report to the Outpatient Waiting Room, entrance under the green pavilion located off [facility], at time _0600_ on date _[id number]_. Planned Procedure Time: _0730_.? Time changes happen often and if your time is changed the preop area will call you the afternoon before. - You and your visitor will be asked to self-screen and do not enter if you have any COVID symptoms. Please call surgeon if you need to reschedule. - A mask is optional within the hospital at this time. Patients may have clear liquids (water, carbonated beverages, clear teas, apple juice) until 3 hours prior to surgery with a maximum of 20 ounces. - No food from midnight until time of surgery and no smoking, or chewing tobacco (or any form of nicotine). No chewing gum, candy or mints. Take only the following medications with a SIP of water on the morning of surgery: ___None DO NOT STOP ANY OF YOUR OTHER PRESCRIPTION MEDICATIONS PRIOR TO SURGERY EXCEPT THE FOLLOWING Hold all vitamins and supplements for 3 days per anesthesiologist. Medications to discontinue per physician Date to take last dose Please no make-up, nail pakistani, hairspray, perfume, deodorant, or body powder the day of surgery.? No jewelry (including any body piercings) or valuables the day of surgery, leave them at home.? Please take a shower or bath the night before, or the morning of, surgery with an antibacterial soap.? Wear comfortable, loose fitting clothing.? - Jewelry must be removed prior to entering the operating room.? Rings and piercings that are not removed may be cut off. - The hospital will not accept responsibility for valuables.? - Please leave all valuables, including medications, at home the day of surgery. If you are going home after surgery, a licensed wagon driver must drive you home.? - NO public transportation without another adult if you receive anesthesia. - We recommend that an adult stay with you for 24 hours following discharge. - We also recommend that you do not drive, make important decision, drink alcoholic beverages, or take any drugs that were not prescribed by your health care provider for at least 24 hours after your discharge time. Follow any additional instructions given to you from your surgeon. Telephone instructions given to __Allison__and asked if any additional questions and then verbalized understanding. Patient advised to call surgeon office or pre surgery nurse liaison [phone] if any additional questions.
[2025-01-23] VITALS (10 sets, daily range): BP systolic 89–125; BP diastolic 55–73; PULSE 60–91; RESP 10–20; TEMP 36.3; O2SAT 97–100; BMI 26.9
--- OUTSIDE RECORDS SUMMARY | 2025-01-23 01:20 | XMS_ITS | Clinical Summary ---
Author Organization [facility] Address [address], [facility] [address] [place] [address] Phone Care Team Providers Care Can Line Operator Name Role Phone Jessa Wilkerson MD Primary Care Provider [phone] Allergies No known active allergies Medications VIORELE [...] Comments Blood Pressure 116/74 10/06/2017 1:10 PM SYSTEMS QA ANALYST Pulse 95 10/06/2017 1:10 PM SYSTEMS QA ANALYST Temperature 36.8 C (98.3 F) 10/06/2017 1:10 PM SYSTEMS QA ANALYST Respiratory Rate 20 10/06/2017 1:10 PM SYSTEMS QA ANALYST Oxygen Saturation 97% 10/06/2017 1:10 PM SYSTEMS QA ANALYST Inhaled Oxygen Concentration - - Weight 70.1 kg (154 lb 8 oz) 10/06/2017 1:10 PM SYSTEMS QA ANALYST Height 180.3 cm (5' 11 ) 10/06/2017 1:10 PM SYSTEMS QA ANALYST Body Mass Index 21.55 10/06/2017 1:10 PM SYSTEMS QA ANALYST Plan of Treatment Health Maintenance Due Date [...] patient's age to complete this topic Insurance [facility] Care Teams Can Line Operator Relationship Specialty Start Date End Date Jessa Wilkerson MD [address] [address] PCP - General Family Medicine 04/18/17
--- OUTSIDE RECORDS SUMMARY | 2025-01-23 01:20 | XMS_ITS | Data Portability ---
Author Organization [facility] Address [address] [place] [address] Care Team Providers Care Kick Press Operator Name Role Phone SOCORRO KNAPP Primary Care Provider Assessment No assessment recorded. Plan of Treatment [...] laparosco py, diagnosti c (SURG) [address], [facility] [address], [address], 01/15/2025 10:02:06 salpingec yesi, laparosco pic (SURG) 2023 024 [facility], [facility] [address], [address], 12/28/2023 13:27:25 Imaging None recorded. Medication Orders Xulane 150 mcg-35 mcg/24 hr transderm al patch 2024 025 [id number], [address], [place], [place], [id number], 01/14/2025 15:30:27 Xulane 150 mcg-35 mcg/24 hr transderm al patch 2022 023 [id number], [address] [facility], [place], [place], [id number], 01/14/2025 15:04:22 Xulane 150 mcg-35 mcg/24 hr transderm al patch 2022 023 [id number], [address] [facility], [place], [address], 01/14/2025 15:04:22 Patient TargetsNo targets recorded. Patient InstructionsNo instructions recorded. Reason for Referral None Reported. Results Created Date Observation Date Name Description Value Unit Range Abnormal Flag Note LastModifiedBy Organization Detail LastModifiedTime Result Notes None recorded. Problems Name Problem SNOMED Code Status Onset Date Resolution Date Notes Provider Name and Address Organization Details Recorded Time Breast lump [id number] Active 015 Breast lump;Recor ded Elsewhere: No Locatio n: [facility] Shruti rce: EHR Chroni c: N Practice ID: [id number] Billa ble Time: 08:30:00 AM Not Available [facility] 21:[facility]45 Problem Notes None recorded. Procedures Surgical History Date Name Laterality Status Provider Name and Address Organization Details Recorded Time 12/28/19 24 SALPINGECTOMY, LAPAROSCOPIC (SURG) completed Sherron Santiago [facility] 12/30/2023 16:40:16 04/27/20 23 Date of Last Pap Smear completed Luzma Elliott [facility] 10/27/2023 16:45:14 11/07/18 99 Remove tonsils and adenoids completed Ashlie Barlow [facility] 09/15/2020 10:14:01 Imaging Results None recorded. [...] Prescrib ed Elsewher e: Yes Loca tion: [facility] By: je Erwin r DateTime : [...] Prescrib ed Elsewher e: No Locat ion: [facility] By: je Erwin r DateTime : [...] Prescrib ed Elsewher e: Yes Loca tion: [facility] By: je Erwin r DateTime : [...] completed Not Available Not Available Not Available Slynd 4 mg (28) tablet Take 1 tablet every day by oral route with meals for 90 days. 07/28 completed Not Available Not Available Not Available Zafemy 150 mcg-35 mcg/24 hr transderm al patch APPLY 1 PATCH TOPICALL Y TO THE SKIN EVERY WEEK DIRECTED active Not Available Not Available No t Available Vitals Date Recorded Body height Body mass index (BMI) Body weight Systolic blood pressure Diastolic blood pressure Provider Name and Address Organization Details Last Updated DateTime 07/28/2023 179.07 cm 26.7 kg/m2 66930.96 g 120 mm[Hg] 72 mm[Hg] Adwoa Mei [facility] 3 17:01:40 Date Recorded Body height Body mass index (BMI) Body weight Systolic blood pressure Diastolic blood pressure Provider Name and Address Organization Details Last Updated DateTime 10/27/2023 179.07 cm 26 kg/m2 22124 g 116 mm[Hg] 74 mm[Hg] Luzma Elliott [facility] 3 16:44:49 Date Recorded Body height Body mass index (BMI) Body weight Systolic blood pressure Diastolic blood pressure Provider Name and Address Organization Details Last Updated DateTime 11/09/2023 179.07 cm 26 kg/m2 84034 g 133 mm[Hg] 80 mm[Hg] Maria Esther Leyva [facility] 4 16:39:26 Date Recorded Body height Body mass index (BMI) Body weight Systolic blood pressure Diastolic blood pressure Provider Name and Address Organization Details Last Updated DateTime 01/06/2024 179.07 cm 25.3 kg/m2 51795.03 g 102 mm[Hg] 67 mm[Hg] Angelia Gant [facility] 4 12:42:33 Date Recorded Body height Body mass index (BMI) Body weight Systolic blood pressure Diastolic blood pressure Provider Name and Address Organization Details Last Updated DateTime 01/14/2025 179.07 cm 27.4 kg/m2 11769.92 g 124 mm[Hg] 73 mm[Hg] Luzma Earl [facility] 5 15:03:26 Social History Question Answer Notes LastModified by [employer] Details LastModified Time Tobacco Smoking Status Never Smoker Ashlie butts, [facility] 09/15/2020 17:24:00 What Is Your Level [...] Functional Status Question Answer Note LastModified by [employer] Details LastModified Time What is your exercise [...] SNOMED-CT Code Diagnosis ICD10 Code Diagnosis Note [id number] Shannonparvez Edouard [place] [address] [address] 09/15/2020 16:38:51 09/16/2020 10:12:16 Gynecologic examination 31038717 Z01.419 Take Calcium with Vitamin D 1200mg [...] paper copy of today's plan if desired. [id number] Shannon Edouard [place] [address] [address] 11/23/2021 16:39:27 11/23/2021 17:19:18 Gynecologic examination 96183861 Z01.419 Z11.3 Z11.8 Take Calcium with Vitamin [...] paper copy of today's plan if desired. [id number] [facility] [address] [address] 04/27/2023 16:32:51 04/27/2023 17:22:36 Gynecologic examination 89636977 Z01.419 Take Calcium with Vitamin D 1200mg [...] Screen Routine Labs Contracept ion care management 136844073 Z30.9 Trial of SLYNDSampl es givenRTO x [...] there is a connection . Will consider. [id number] Ignacia Joiner , [facility] [address] [address] 07/28/2023 16:49:30 07/29/2023 09:55:14 Contraception care management 997838849 Z30.9 Med check of SLYNDDid not like [...] counseling and review of plan of care. [id number] ASHLEE [facility] [address],[place] [address] 10/27/2023 16:34:05 10/27/2023 17:54:00 Contraception care management 752640211 Z30.9 Patient is here today for a [...] Jose for consult to discuss this option. [id number] Ruslan Jose MD [place] [address],[place] [address] 11/09/2023 16:17:09 11/10/2023 09:01:58 Female sterilization 33998238 Z30.2 This patient is a 28-year-ol d [...] forward with laparoscop ic bilateral salpingect gurmeet. [id number] Ruslan Jose MD [place] [address] [address] 01/06/2024 12:35:10 01/06/2024 13:11:17 Postoperative care 671550463 Z48.89 This patient is a 28-year-ol d female who presents for postop follow-up. She is 1 week postop from a laparoscop ic bilateral salpingect gurmeet. Her incisions are clean dry and intact. She has no complaints . She is recovering normally. She will follow up as needed. [id number] Ruslan Jose MD [place] [address] [address] 01/14/2025 14:43:54 01/15/2025 03:42:26 Endometriosis of pelvis 56041017 N80.9 Pain in pelvis 21419339 R10.2 This patient is a 29-year-ol d [...] Lopez Member ID Guarantor Name 10/27/2023 1 [facility] [id number] Zena Lang [id number] 11/09/2023 1 [facility] [id number] Zena Lang [id number] 01/06/2024 1 [facility] [id number] Zena Lang [id number] 01/14/2025 1 [facility]: (PP[facility] [id number] Zena Lang [id number] Notes Date Note Type Note Provider Name and Address Organization Details Recorded Time 07/28/2023 text/html Her today for medication check. Ignacia Joiner [facility] [address], [place], [address], [facility] 07/28/2023 18:37:59 10/27/2023 text/html Here today for b irth control med check of xulane. Ignacia Joiner [facility] [address], [place], [address], [facility] 10/27/2023 17:48:42 11/09/2023 text/html This patient [...] reversible. Ruslan Jose MD [address], [place], [address], [facility] 11/09/2023 18:58:50 01/06/2024 text/html This patient is a 28-year-old female who presents for postop follow-up. She is 1 week postop from a laparoscopic bilateral salpingectomy. Her incisions are clean dry and intact. She has no complaints. She is recovering normally. She will follow up as needed. Ruslan Jose MD [address], [place], [address], [facility] 01/06/2024 13:10:04 01/14/2025 text/html this patient [...] infection. Ruslan Jose MD [address], [place], [address], [facility] 01/14/2025 18:11:53 OBGyn Episode No OBEpisode recorded.
--- OUTSIDE RECORDS SUMMARY | 2025-01-23 01:20 | XMS_ITS | Data Portability ---
Author Organization [facility] Address [address] [place] [address] Care Team Providers Care Performance Improvement Analyst Name Role Phone JESAS WINTERS Primary Care Provider Assessment Encounter Date Assessment Date Assessment LastModified by Organization Details LastModified Time 06/14/2019 06/14/2019 note for work to excuse for today's visit Not available 06/14/2019 17:02:36 Plan of Treatment Reminders Order Date Submit Date Provider Last Modified By Organization Details Last Modified Time Details Appointments None recorded. Lab celiac disease comprehens haroon panel, serum 2016 017 [facility], [facility], [address], [place], [address], 7 16:19:24 celiac disease comprehens haroon panel, serum 2016 017 [facility], [facility], [facility] [address], [place], [address], 7 02:37:35 CBC w/ auto diff 2016 017 [facility], [facility], [address], [place], [address], 7 16:20:52 CMP, serum or plasma 2016 017 [facility], [address] [place], [place] [address]federico Florian, [facility] [address], [place], [address], 7 16:20:52 TSH, ultra-sens itive, serum 2016 017 [facility], [address] [place] [address], [address], [place], [address], 7 16:20:53 celiac disease comprehens haroon panel, serum 2016 017 [facility], [address] [place] [address], [address], [place], [address], 7 16:20:51 vitamin D, 25-hydroxy , total, serum 2016 017 [facility], [address] [place] [address], [address], [place], [address], 7 16:20:53 Referral None recorded. Procedures None recorded. Surgeries None recorded. Imaging None recorded. Medication Orders Seasonique 0.15 mg-30 mcg (84)/10 mcg(7) tablets,3 month dose pack 2018 019 [facility] #2510, [address] [place], [address], 9 17:00:10 Zofran ODT 8 mg disintegra ting tablet 2017 018 [facility] [address] [place], [address], 9 15:58:29 OsmoPrep 1.5 gram (1.102-0.3 98) tablet 2016 017 [facility] [address] [place], [address], 7 16:27:46 Miralax 17 gram/dose oral powder 2016 017 [facility]acy #2510, [address] [place], [address], 7 16:27:32 Linzess 145 mcg capsule 2016 Carlos estelle [facility], [address] [place], [address], 7 16:27:28 Patient TargetsNo targets recorded. Patient Instructions Encounter Date Encounter Id Patient Instructions Last Modified By Organization Details Last Modified Time 03/15/2017 [id number] constipation: care instructions Not available 03/15/2017 17:41:21 diet - low fodmap lenglema Not availabl e 03/16/2017 09:44:44 04/12/2017 [id number] OK for work note for yesterday and today Not available 04/13/2017 02:37:16 Reason for Referral None Reported. Results Created Date Observation Date Name Description Value Unit Range Abnormal Flag Note LastModifiedBy Organization Detail LastModifiedTime 03/15/20 17 03/16/2017 sugey c disea se compr ehens haroon panel , serum endomysial antibody IgA NEGATI VE negati ve Not Available [facility] ([facility]) [address] [facility] [address], [place], [address], 03/16/2017 16:20:51 03/15/20 17 03/16/2017 sugey c [...] TIVE ENTER OPATH Y. Not Available [facility] ([facility]) [address] [facility] [address], [place], [address], 03/16/2017 16:20:51 03/15/20 17 03/16/2017 sugey c disea se compr ehens haroon panel , serum immunoglobul in A, qn, serum 73 mg/dL 87-352 below low normal Not Available [facility] ([facility]) [address] [facility] [address], [place], [address], 03/16/2017 16:20:51 03/15/20 17 03/16/2017 sugey c disea se compr ehens haroon panel , serum T-transgluta minase (ttg) IgG <2 U/mL 0-5 NEGAT HAROON 0 - 5 WEAK POSIT HAROON 6 - 9 POSIT HAROON >9 Not Available [facility] ([facility]) [address] [facility] [address], [place], [address], 03/16/2017 16:20:51 03/15/20 17 03/16/2017 CBC w/ auto diff WBC 10.2 x10e3 /uL 3.4-10 .8 Not Available [facility] ([facility]) [address] [facility] [address], [place], [address], 03/16/2017 16:20:52 03/15/20 17 03/16/2017 CBC w/ auto diff RBC 4.75 x10e6 /uL 3.77-5 .28 Not Available [facility] ([facility]) [address] [facility] [address], [place], [address], 03/16/2017 16:20:52 03/15/20 17 03/16/2017 CBC w/ auto diff hemoglobin 14.3 g/dL 11.1-1 5.9 Not Available [facility] ([facility]) [address] [place], [address], 03/16/2017 16:20:52 03/15/20 17 03/16/2017 CBC w/ auto diff hematocrit 40.5 % 34.0-4 6.6 Not Available [facility] ([facility]) [address] [place], [address], 03/16/2017 16:20:52 03/15/20 17 03/16/2017 CBC w/ auto diff MCV 85 fL 79-97 Not Available [facility] ([facility]) [address] [facility] [address], [place], [address], 03/16/2017 16:20:52 03/15/20 17 03/16/2017 CBC w/ auto diff MCH 30.1 pg 26.6-3 3.0 Not Available [facility] ([facility]) [address] [facility] [address], [place], [address], 03/16/2017 16:20:52 03/15/20 17 03/16/2017 CBC w/ auto diff MCHC 35.3 g/dL 31.5-3 5.7 Not Available [facility] ([facility]) [address] [facility] [address], [place], [address], 03/16/2017 16:20:52 03/15/20 17 03/16/2017 CBC w/ auto diff RDW 13.4 % 12.3-1 5.4 Not Available [facility] ([facility]) [address] [facility] [address], [place], [address], 03/16/2017 16:20:52 03/15/20 17 03/16/2017 CBC w/ auto diff platelets 287 x10e3 /uL 150-37 9 Not Available [facility] ([facility]) [address] [facility] [address], [place], [address], 03/16/2017 16:20:52 03/15/20 17 03/16/2017 CBC w/ auto diff neutrophils 61 % Not Available [facility] ([facility]) [address] [place], [address], 03/16/2017 16:20:52 03/15/20 17 03/16/2017 CBC w/ auto diff lymphs 32 % Not Available [facility] ([facility]) [address] [facility] [address], [place], [address], 03/16/2017 16:20:52 03/15/20 17 03/16/2017 CBC w/ auto diff monocytes 6 % Not Available [facility] ([facility]) [address] [place], [address], 03/16/2017 16:20:52 03/15/20 17 03/16/2017 CBC w/ auto diff eos 1 % Not Available [facility] ([facility]) [address] [place], [address], 03/16/2017 16:20:52 03/15/20 17 03/16/2017 CBC w/ auto diff basos 0 % Not Available [facility] ([facility]) [address] [place], [address], 03/16/2017 16:20:52 03/15/20 17 03/16/2017 CBC w/ auto diff immature cells DENTAL PROSTHETIST Not Available [facility] ([facility]) [address] [place], [address], 03/16/2017 16:20:52 03/15/20 17 03/16/2017 CBC w/ auto diff neutrophils (absolute) 6.2 x10e3 /uL 1.4-7. 0 Not Available [facility] ([facility]) [address] [place], [address], 03/16/2017 16:20:52 03/15/20 17 03/16/2017 CBC w/ auto diff lymphs (absolute) 3.3 x10e3 /uL 0.7-3. 1 above high normal Not Available [facility] ([facility]) [address] [place], [address], 03/16/2017 16:20:52 03/15/20 17 03/16/2017 CBC w/ auto diff monocytes(ab solute) 0.6 x10e3 /uL 0.1-0. 9 Not Available [facility] ([facility]) [address] [place], [address], 03/16/2017 16:20:52 03/15/20 17 03/16/2017 CBC w/ auto diff eos (absolute) 0.1 x10e3 /uL 0.0-0. 4 Not Available [facility] ([facility]) [address] [place], [address], 03/16/2017 16:20:52 03/15/20 17 03/16/2017 CBC w/ auto diff baso (absolute) 0.0 x10e3 /uL 0.0-0. 2 Not Available [facility] ([facility]) [address] [place], [address], 03/16/2017 16:20:52 03/15/20 17 03/16/2017 CBC w/ auto diff immature granulocytes 0 % Not Available [facility] ([facility]) [address] [place], [address], 03/16/2017 16:20:52 03/15/20 17 03/16/2017 CBC w/ auto diff immature grans (abs) 0.0 x10e3 /uL 0.0-0. 1 Not Available [facility] ([facility]) [address] [place], [address], 03/16/2017 16:20:52 03/15/20 17 03/16/2017 CBC w/ auto diff NRBC DENTAL PROSTHETIST Not Available [facility] ([facility]) [address] [place], [address], 03/16/2017 16:20:52 03/15/20 17 03/16/2017 CBC w/ auto diff hematology comments: DENTAL PROSTHETIST Not Available [facility] ([facility]) [address] [place], [address], 03/16/2017 16:20:52 03/15/20 17 03/16/2017 CMP, serum or plasm a glucose, serum 89 mg/dL 65-99 Not Available [facility] ([facility]) [address] [place], [address], 03/16/2017 16:20:52 03/15/20 17 03/16/2017 CMP, serum or plasm a BUN 15 mg/dL 6-20 Not Available [facility] ([facility]) [address] [facility] [place], [address], 03/16/2017 16:20:52 03/15/20 17 03/16/2017 CMP, serum or plasm a creatinine, serum 0.72 mg/dL 0.57-1 .00 Not Available [facility] ([facility]) [address] [facility] [place], [address], 03/16/2017 16:20:52 03/15/20 17 03/16/2017 CMP, serum or plasm a eGFR if nonafricn AM 122 mL/mi n/1.7 3 >59 Not Available [facility] ([facility]) [address] [place], [address], 03/16/2017 16:20:52 03/15/20 17 03/16/2017 CMP, serum or plasm a eGFR if africn AM 140 mL/mi n/1.7 3 >59 Not Available [facility] ([facility]) [address] [place], [address], 03/16/2017 16:20:52 03/15/20 17 03/16/2017 CMP, serum or plasm a BUN/creatini ne ratio 21 9-23 Not Available [facility] ([facility]) [address] [place], [address], 03/16/2017 16:20:52 03/15/20 17 03/16/2017 CMP, serum or plasm a sodium, serum 143 mmol/ L 134-14 4 Not Available [facility] ([facility]) [address] [place], [address], 03/16/2017 16:20:52 03/15/20 17 03/16/2017 CMP, serum or plasm a potassium, serum 4.8 mmol/ L 3.5-5. 2 Not Available [facility] ([facility]) [address] [place], [address], 03/16/2017 16:20:52 03/15/20 17 03/16/2017 CMP, serum or plasm a chloride, serum 103 mmol/ L 96-106 Not Available [facility] ([facility]) [address] [facility] [address], [place], [address], 03/16/2017 16:20:52 03/15/20 17 03/16/2017 CMP, serum or plasm a carbon dioxide, total 21 mmol/ L 18-29 Not Available [facility] ([facility]) [address] [facility] [place], [address], 03/16/2017 16:20:52 03/15/20 17 03/16/2017 CMP, serum or plasm a calcium, serum 9.7 mg/dL 8.7-10 .2 Not Available [facility] ([facility]) [address] [place], [address], 03/16/2017 16:20:52 03/15/20 17 03/16/2017 CMP, serum or plasm a protein, total, serum 6.7 g/dL 6.0-8. 5 Not Available [facility] ([facility]) [address] [facility] [address], [place], [address], 03/16/2017 16:20:52 03/15/20 17 03/16/2017 CMP, serum or plasm a albumin, serum 4.6 g/dL 3.5-5. 5 Not Available [facility] ([facility]) [address] [place], [address], 03/16/2017 16:20:52 03/15/20 17 03/16/2017 CMP, serum or plasm a globulin, total 2.1 g/dL 1.5-4. 5 Not Available [facility] ([facility]) [address] [place], [address], 03/16/2017 16:20:52 03/15/20 17 03/16/2017 CMP, serum or plasm a A/G ratio 2.2 1.2-2. 2 Not Available [facility] ([facility]) [address] [facility] [place], [address], 03/16/2017 16:20:52 03/15/20 17 03/16/2017 CMP, serum or plasm a bilirubin, total <0.2 mg/dL 0.0-1. 2 Not Available [facility] ([facility]) [address] [facility] [place], [address], 03/16/2017 16:20:52 03/15/20 17 03/16/2017 CMP, serum or plasm a alkaline phosphatase, S 45 IU/L 39-117 Not Available [facility] ([facility]) [address] [facility] [place], [address], 03/16/2017 16:20:52 03/15/20 17 03/16/2017 CMP, serum or plasm a AST (SGOT) 15 IU/L 0-40 Not Available [facility] ([facility]) [address] [facility] [place], [address], 03/16/2017 16:20:52 03/15/20 17 03/16/2017 CMP, serum or plasm a ALT (SGPT) 13 IU/L 0-32 Not Available [facility] ([facility]) [address] [place], [address], 03/16/2017 16:20:52 03/15/20 17 03/16/2017 vitam in [...] UM AND D. LEVI MOLINA DC: [facility] . 2. EMILIE Bergeron MF, ANGEL COFFMAN NC, BISCH OFF-F PATRICIA I BALLESTEROS, ET AL. EVALU ATION , TREAT MENT, AND PREVE NTION OF VITAM IN D DEFIC IENCY : AN ENDOC RINE SOCIE TY CLINI HUY PRACT ICE GUIDE LINE. JCEM. 2010; 96(7) :1911 -30. Not Available [facility] ([facility]) [address] [place], [address], 03/16/2017 16:20:53 03/15/20 17 03/16/2017 TSH, ultra -sens itive , serum TSH 1.680 uIU/m L 0.450- 4.500 Not Available [facility] ([facility]) [address] [place], [address], 03/16/2017 16:20:53 04/21/20 17 04/22/2017 sugey c disea se compr ehens haroon panel , serum endomysial antibody IgA NEGATI VE negati ve Not Available [facility] ([facility]) [address] [place], [address], 04/22/2017 16:19:24 04/21/20 17 04/22/2017 sugey c [...] TIVE ENTER OPATH Y. Not Available [facility] ([facility]) [address] [place], [address], 04/22/2017 16:19:24 04/21/20 17 04/22/2017 sugey cinthia disea se compr ehens haroon panel , serum immunoglobul in A, qn, serum 69 mg/dL 87-352 below low normal Not Available [facility] ([facility]) [address] [facility] [address], [place], [address], 04/22/2017 16:19:24 04/21/20 17 04/22/2017 sugey cinthia disea se compr ehens haroon panel , serum T-transgluta minase (ttg) IgG <2 U/mL 0-5 NEGAT HAROON 0 - 5 WEAK POSIT HAROON 6 - 9 POSIT HAROON >9 Not Available [facility] ([facility]) [address] [facility] [address], [place], [address], 04/22/2017 16:19:24 06/19/20 19 06/11/2019 XR, chest , 2 view No observ ation record ed. Not Available 2018 16:42:06 Result Notes None recorded. 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 Location : None;Sev erity: Moderate ;Progres s: Stable;A dded By: Bria Lozano;Add to Current Problems : NO Not Available [facility] 7 09:34:07 Hypoglyc emia 604585974 Completed 201201/13/2013 Location : None;Sev erity: Moderate ;Progres s: Stable;A dded By: Jessa Winters;Add to Current Problems : NO Not Available [facility] 7 09:34:07 Vitamin D deficien cy 58115471 Active 2012 Location : None;Sev erity: Moderate ;Progres s: Stable;A dded By: Jessa Winters;Add to Current Problems : YES Not Available [facility] 7 09:34:07 Malaise and fatigue 603494261 Active 2012 Location : None;Sev erity: Moderate ;Progres s: Stable;A dded By: Charis Mejia;Add to Current Problems : NO Not Available [facility] 7 09:34:07 Constipa tion 58587649 Active 2014 Location : None;Sev erity: Moderate ;Progres s: Stable;A dded By: Alexia Stauffer i;Rylee dd to Current Problems : YES Not Available [facility] 7 09:34:07 Tubercul osis screenin g Completed 201310/03/2014 Location : None;Sev erity: Moderate ;Progres s: Stable;A dded By: Bria Lozaon;Add to Current Problems : YES Not Available [facility] 7 09:34:07 HPV - Human papillom avirus test positive Active 2013 Location : None;Sev erity: Moderate ;Progres s: Stable;A dded By: Bria Lozano;Add to Current Problems : NO Not Available [facility] 7 09:34:58 Problem Notes None recorded. Procedures Surgical History Date Name Laterality Status Provider Name and Address Organization Details Recorded Time Breast Surgery completed Jessa Winters MD Attn: Accounting[address] [place], [address], [facility] 03/15/2017 17:29:21 Imaging Results Imaging Date Name Status LastModified by Organiz [facility] Details LastModified Time 06/11/2019 XR, chest, 2 [...] one po q hs 11/04 completed RxNorm: 450942; Allow Substit ution: True Not Available Not Available Not Available Vitamin D3 10 mcg (400 unit) tablet 5 po daily 04/12 completed Allow Substit ution: True Not Available Not Available Not Available sertraline 25 mg tablet 3 tablets everyday at noon 08/13 completed RxNorm: 132539; Allow Substit ution: True Not Available Not [...] ) by mouth daily 08/13 completed RxNorm: 287864; Allow Substit ution: True Not Available Not [...] Address Organization Details Last Updated DateTime 8 82756.1 9 g 97.7 [degF] 99 % 99 % 96 /min 106 mm[Hg] 56 mm[Hg] Jessa Winters MD Attn: Stephania mckeon,[address] [place], [address], [facility] 8 16:12:15 Date Recorded Body height Body mass index (BMI) Body weight Oxygen saturation Oxygen saturation in Arterial blood by Pulse oximetry Heart rate Body temperature Systolic blood pressure Diastolic blood pressure Provider Name and Address Organization Details Last Updated DateTime 9 180.34 cm 23 kg/m2 51188.0 9 g 98 % 98 % 90 /min 99.3 [degF] 118 mm[Hg] 60 mm[Hg] Nancy Saeed MA [facility] 9 15:58:01 Date Recorded Body height Body weight Body mass index (BMI) Body temperature Oxygen saturation Oxygen saturation in Arterial blood by Pulse oximetry Heart rate Systolic blood pressure Diastolic blood pressure Provider Name and Address Organization Details Last Updated DateTime 7 177.8 cm 52700.9 8 g 22 kg/m2 98 [degF] 99 % 99 % 100 /min 122 mm[Hg] 62 mm[Hg] Tory Mendoza MA PA - [facility] 7 17:03:05 Date Recorded Body height Body weight Body mass index (BMI) Oxygen saturation Oxygen saturation in Arterial blood by Pulse oximetry Heart rate Body temperature Systolic blood pressure Diastolic blood pressure Provider Name and Address Organization Details Last Updated DateTime 7 177.8 cm 33020.8 6 g 21.5 kg/m2 98 % 98 % 124 /min 97.8 [degF] 124 mm[Hg] 68 mm[Hg] Jessa Winters MD Attn: Stephania mckeon,[address] [place], [address], [facility] 7 02:31:43 Date Recorded Body height Body mass index (BMI) Body weight Heart rate Systolic blood pressure Diastolic blood pressure Provider Name and Address Organization Details Last Updated DateTime 7 177.8 cm 21.8 kg/m2 29519.6 g 76 /min 110 mm[Hg] 78 mm[Hg] Linda Jackson [facility] 7 16:28:47 Social History Question Answer Notes LastModified by Organizat ion Details LastModified Time Tobacco Smoking Status Never Smoker Jessa Winters MD Attn: Accounting,[address] , [place], [address], [facility] 03/15/2017 17:28:56 What Is [...] HPV, quadrivalent 4 completed Not Available [facility] 12/08/2019 02:11:44 varicella 2 completed Not Available [facility] 11/10/2016 06:02:01 varicella 7 completed Not Available [facility] 11/10/2016 06:02:01 MMR 0 completed Not Available [...] Hib (PRP-OMP) 7 completed Not Available [facility] 11/10/2016 06:02:02 Hib (PRP-OMP) 9 completed Not Available [facility] 11/10/2016 06:02:02 IPV 7 completed Not Available [facility] 11/10/2016 06:02:02 IPV 8 completed Not Available [facility] 11/10/2016 06:02:02 IPV 2 completed Not Available [facility] 11/10/2016 06:02:02 Tdap 2 completed Not Available [facility] 11/10/2016 06:02:03 HPV, quadrivalent 6 completed Not Available [facility] 11/10/2016 06:02:03 TST-PPD intradermal 4 completed Not Available [facility] 12/08/2019 02:11:44 IPV 7 completed Not Available [facility] 11/10/2016 06:02:03 DTP 8 completed Not Available [facility] 11/10/2016 06:02:03 DTP 2 completed Not Available [facility] 11/10/2016 06:02:04 DTP 7 completed Not Available [facility] 11/10/2016 06:02:04 DTP 7 completed Not Available [facility] 11/10/2016 06:02:04 DTP 9 completed Not Available [facility] 11/10/2016 06:02:04 Past Encounters Encounter ID Performer Location Encounter Start Date Encounter Closed Date Diagnosis/Indication Diagnosis SNOMED-CT Code Diagnosis ICD10 Code Diagnosis Note [id number] Jessa Winters MD [facility] [address] [place] [address] 03/15/2017 15:58:03 03/15/2017 17:53:11 Constipation 54168400 K59.00 Vitamin D deficiency 347 58661 E55.9 [id number] Jessa Winters MD [facility] [address] [place] [address] 04/12/2017 15:20:40 04/13/2017 15:16:13 Constipation 41574647 K59.00 no signs of obstructio n. She has no vomitting. She is drinking OK. Complains of pain with urination [id number] AMERICO Rodriguez [facility] [address] [place] [address] 04/21/2017 16:02:35 04/21/2017 17:07:32 Constipation 07018071 K59.00 Linda will call to expedite her referral to Dr. Crain's office. [id number] Jessa Winters MD [facility] [address] [place] [address] 08/24/2018 15:36:21 08/25/2018 10:36:16 Acute gastroenteritis 56721010 K52.9 pt ed and precaution s given-- likely related to food ingestion but no fever or blood in stool-- no need for further evaluation unless not recovered in the next few days [id number] Jessa Winters MD [facility] [address] [facility] [address] [place] [address] 06/14/2019 15:14:25 06/15/2019 09:00:39 Tachycardia 9564878 R00.0 you have had testing at the ER-- I will get those records to assure that the electrolyt es, mineral and thryoid were checked Disturbance in mood 7452 [address] R45[address] Eliseo Diallo in a week and a half week about the medication and your new complaint of anxiety Panic disorder 577732382 F41.[address] Liz Premenstru al dysphoric disorder 850117 F32.81 we discussed monophasic control of menses [...] ID Guarantor Name 03/15/2017 1 [place] [id number] Johnathan Lang [id number] 49 Zena Lang 04/12/2017 1 [place] [id number] Johnathan Lang [id number] 49 Zena Lang 04/21/2017 1 [place] [id number] Johnathan Lang [id number] Zena Lang 08/24/2018 1 [place] [id number] Johnathan Lang [id number] Zena Lang 06/14/2019 1 [place] [id number] Johnathan Lang [id number] Zena Lang Notes Date Note Type Note Provider Name and Address Organization Details Recorded Time 03/15/2017 text/html Abdominal PainRe ported bypatient.Quality:pain ;bloating;sharp Severity:mild Duration:constant Onset/Timing:worse Context:none Modifying Factors:nothing gives relief; nothing makes it worse Associated Symptoms:no fever; no heartburn; no shortness of breath;chills;nausea;c onstipation;decreased appetite Other:noneNotes: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 States she feels 10 [...] she has relief. AMERICO Rodriguez Attn: Accounting,[address] [place], [address], [facility] 04/21/2017 16:58:47 08/24/2018 text/html DiarrheaReported bypatient.Quality:freq uent;watery; [...] incontinence;abdominal pain;nausea;vomiting;w yeimy Winters MD Attn: Accounting,[address] [place], [address], [facility] 08/24/2018 16:17:20 06/14/2019 text/html Anxiety/Depressi onRepo rted [...] in salary Jessa Winters MD Attn: Accounting,[address] [place], [address], [facility] 06/14/2019 17:02:42 OBGyn Episode No OBEpisode recorded.
--- OUTSIDE RECORDS SUMMARY | 2025-01-23 01:21 | XMS_ITS | Data Portability ---
Author Organization [facility], Main Office Address [address] [place] [address] Assessment No assessment recorded. Plan of Treatment Reminders Order Date Submit Date Provider Last Modified By Organization Details Last Modified Time Details Appointments None recorded. Lab PTH (parathyroi d hormone), intact, serum or plasma 2022 023 [email or web address] [facility] (Lab), [address] [place], [address], 3 17:31:56 calcium, ionized, blood 2022 023 [email or web address] [facility] (Lab), [address] [place], [address], 3 14:31:01 magnesium, serum or plasma 2022 023 [email or web address] [facility] (Lab), [address] [place], [address], 3 16:36:52 CMP, serum or plasma 2022 023 [facility], [address] [place], [address], 3 16:37:20 iron + TIBC + ferritin, serum 2022 023 5 [facility], [address] [place], [address], 3 19:27:11 TSH, serum or plasma 2022 023 [facility], [address] [place], [address], 3 16:37:45 CBC 2022 023 [email or web address] [facility], [address] [place], [address], 3 16:37:55 Referral None recorded. Procedures None recorded. Surgeries None recorded. Imaging US, echocardiog peyton, transthorac ic, complete, w/ color flow - please call pt to schedule [address] [facility] (Cardiology & Emg), [address] [place] [address] [address], [place], [address], 3 11:12:46 electrocard iogram 2022 023 [email or web address] [facility] [address], [place], [address], 3 16:35:48 Medication Orders metoprolol succinate ER 25 mg tablet,exte nded release 24 hr 2022 023 [facility]/Pharmacy #[id number], [address] [place], [address], 3 16:24:22 propranolol 10 mg tablet 2022 023 [email or web address] 5 [facility]/Pharmacy #[id number], [address] [place], [address], 3 18:29:07 metoprolol succinate ER 25 mg tablet,exte nded release 24 hr 2022 023 [email or web address] 5 [facility]/Pharmacy #2510, [address] [place], [address], 3 18:31:45 propranolol 10 mg tablet 2022 023 [facility]/Pharmacy #[id number], [address] [place], [address], 16:18:26 Patient TargetsNo targets recorded. Patient InstructionsNo instructions recorded. Reason for Referral None Reported. Results Created Date Observation Date Name Description Value Unit Range Abnormal Flag Note LastModifiedBy Organization Detail LastModifiedTime 01/29/2001/28/2023 CBC W/O DIFFE RENTI AL white blood cells 11.1 x10'3 /uL 4.2-10 .8 high Not Available [facility] (Lab) [address] [place], [address], 01/28/2023 19:31:10 01/29/2001/28/2023 CBC W/O DIFFE RENTI AL red blood cells 4.97 x10'6 /uL 3.80-5 .20 Not Available [facility] (Lab) [address] [place], [address], 01/28/2023 19:31:10 01/29/2001/28/2023 CBC W/O DIFFE RENTI AL hemoglobin 15.0 g/dL 12.0-1 5.6 Not Available [facility] (Lab) [address] [place], [address], 01/28/2023 19:31:10 01/29/2001/28/2023 CBC W/O DIFFE RENTI AL hematocrit 43.9 % 35.7-4 5.7 Not Available [facility] (Lab) [address] [place], [address], 01/28/2023 19:31:10 01/29/2001/28/2023 CBC W/O DIFFE RENTI AL mean red cell volume 88.3 fL 82.0-9 9.0 Not Available [facility] (Lab) [address] [place], [address], 01/28/2023 19:31:10 01/29/20 23 01/28/2023 CBC W/O DIFFE RENTI AL mean red cell hemoglobin 30.2 pg 27.0-3 3.0 Not Available [facility] (Lab) [address] [place], [address], 01/28/2023 19:31:10 01/29/2001/28/2023 CBC W/O DIFFE RENTI AL mean RBC HGB concentratio n 34.2 g/dL 31.0-3 6.0 Not Available [facility] (Lab) [address] [place], [address], 01/28/2023 19:31:10 01/29/2001/28/2023 CBC W/O DIFFE RENTI AL red cell distribution width 12.3 % 11.8-1 5.5 Not Available [facility] (Lab) [address] [place], [address], 01/28/2023 19:31:10 01/29/20 23 01/28/2023 CBC W/O DIFFE RENTI AL platelets 346 x10'3 /uL 150-40 0 Not Available [facility] (Lab) [address] [place], [address], 01/28/2023 19:31:10 01/29/2001/28/2023 CBC W/O DIFFE RENTI AL mean platelet volume 10.2 fL 9.0-12 .4 Not Available [facility] (Lab) [address] [place], [address], 01/28/2023 19:31:10 01/29/2001/28/2023 COMPR EHENS HAROON METAB OLIC PANEL sodium 137 mmol/ L 137-14 5 Not Available [facility] (Lab) [address] [place], [address], 01/28/2023 19:42:40 01/29/2001/28/2023 COMPR EHENS HAROON METAB OLIC PANEL potassium 3.7 mmol/ L 3.5-5. 1 Not Available [facility] (Lab) [address] [place], [address], 01/28/2023 19:42:40 01/29/20 23 01/28/2023 COMPR EHENS HAROON METAB OLIC PANEL chloride 101 mmol/ L 98-107 Not Available [facility] (Lab) [address] [place], [address], 01/28/2023 19:42:40 01/29/20 23 01/28/2023 COMPR EHENS HAROON METAB OLIC PANEL carbon dioxide 26 mmol/ L 22-30 Not Available [facility] (Lab) [address] [place], [address], 01/28/2023 19:42:40 01/29/20 23 01/28/2023 COMPR EHENS HAROON METAB OLIC PANEL anion gap 13.7 mmol/ L 14-22 low Not Available [facility] (Lab) [address] [place], [address], 01/28/2023 19:42:40 01/29/20 23 01/28/2023 COMPR EHENS HAROON METAB OLIC PANEL glucose 86 mg/dL 70-99 Not Available [facility] (Lab) [address] [place], [address], 01/28/2023 19:42:40 01/29/20 23 01/28/2023 COMPR EHENS HAROON METAB OLIC PANEL BUN 11 mg/dL 8-19 Not Available [facility] (Lab) [address] [place], [address], 01/28/2023 19:42:40 01/29/20 23 01/28/2023 COMPR EHENS HAROON METAB OLIC PANEL creatinine 0.60 mg/dL 0.66-1 .25 low Not Available [facility] (Lab) [address] [place], [address], 01/28/2023 19:42:40 01/29/20 23 01/28/2023 COMPR EHENS HAROON METAB OLIC PANEL GFR >60 Refer ence Range : [place] ge GFR Healt hy Adult : >60 mL/mi n/1.7 3 m2 Chron ic Kidne y Disea se: 15-60 mL/mi n/1.7 3 m2 Kidne y Failu re: <15/m L/min /1.73 m2 www.n [facility]. [facility] ov The MDRD study equat ion [...] calcu lator is avail able on the [facility] websi te: https ://rina hopkins.jerry gaston.o rg/pr ofess ional s/kdo qi/gf r_cal culat or Not Available [facility] (Lab) [address] [place], [address], 01/28/2023 19:42:40 01/29/2001/28/2023 COMPR EHENS HAROON METAB OLIC PANEL alkaline phosphatase 64 U/L 38-126 Not Available [facility] (Lab) [address] [place], [address], 01/28/2023 19:42:40 01/29/20 23 01/28/2023 COMPR EHENS HAROON METAB OLIC PANEL alanine aminotransfe rase 28 U/L 0-35 Not Available [facility] (Lab) [address] [place], [address], 01/28/2023 19:42:40 01/29/20 23 01/28/2023 COMPR EHENS HAROON METAB OLIC PANEL aspartate aminotransfe rase 30 U/L 15-37 Not Available [facility] (Lab) [address] [place], [address], 01/28/2023 19:42:40 01/29/20 23 01/28/2023 COMPR EHENS HAROON METAB OLIC PANEL bilirubin, total 0.50 mg/dL 0.20-1 .30 Not Available [facility] (Lab) [address] [place], [address], 01/28/2023 19:42:40 01/29/20 23 01/28/2023 COMPR EHENS HAROON METAB OLIC PANEL calcium 10.5 mg/dL 8.4-10 .2 high Not Available [facility] (Lab) [address] [place], [address], 01/28/2023 19:42:40 01/29/20 23 01/28/2023 COMPR EHENS HAROON METAB OLIC PANEL total protein 7.2 g/dL 6.3-8. 2 Not Available [facility] (Lab) [address] [place], [address], 01/28/2023 19:42:40 01/29/20 23 01/28/2023 COMPR EHENS HAROON METAB OLIC PANEL albumin 4.6 g/dL 3.4-5. 0 Not Available [facility] (Lab) [address] [place], [address], 01/28/2023 19:42:40 01/29/20 23 01/28/2023 COMPR EHENS HAROON METAB OLIC PANEL globulin 2.6 g/dL 2.6-4. 2 Not Available [facility] (Lab) [address] [place], [address], 01/28/2023 19:42:40 01/29/2001/28/2023 COMPR EHENS HAROON METAB OLIC PANEL A/G ratio 1.8 ratio 1.0-2. 0 Not Available [facility] (Lab) [address] [place], [address], 01/28/2023 19:42:40 01/29/20 23 01/28/2023 MAGNE SIUM magnesium 1.9 mg/dL 1.6-2. 3 Not Available [facility] (Lab) [address] [place], [address], 01/28/2023 19:42:44 01/29/2001/28/2023 TSH thyroid-stim ulating hormone 2.430 uIU/m L 0.465- 4.680 Not Available [facility] (Lab) [address] [place], [address], 01/28/2023 20:05:34 01/29/20 23 01/28/2023 IRON/ TIBC PANEL total iron binding capacity 363 mcg/d L 265-47 5 Not Available [facility] (Lab) [address] [place], [address], 01/28/2023 20:27:05 01/29/2001/28/2023 IRON/ TIBC PANEL % transferrin saturation 28 % 20-55 Not Available [facility] (Lab) [address] [place], [address], 01/28/2023 20:27:05 01/29/20 23 01/28/2023 IRON/ TIBC PANEL unsaturated iron bind capacity 263 mcg/d L 126-38 2 Not Available [facility] (Lab) [address] [place], [address], 01/28/2023 20:27:05 01/29/20 23 01/28/2023 IRON/ TIBC PANEL iron 100 mcg/d L 42-175 Not Available [facility] (Lab) [address] [place], [address], 01/28/2023 20:27:05 01/29/20 23 01/31/2023 DEREK TIN ferritin 59 NG/mL 6.24-1 37 Not Available [facility] (Lab) [address] [place], [address], 01/31/2023 13:12:49 02/24/20 23 02/23/2023 PARAT HY.HO RM(PT H)INT ACT-W /O CA intact parathyroid hormone 43.4 pg/mL 24.0-7 8.0 Pleas e note new refer ence range effec tive 12/03 . Not Available [facility] (Lab) [address] [place], [address], 02/23/2023 20:41:50 02/24/20 23 02/25/2023 CALCI UM, IONIZ ED/LC calcium, ionized, serum 4.8 mg/dL 4.5-5. 6 [place] at: [place] [address] Lab Direc tor: Miguel mckenzie PhD, Phone : [phone] Not Available [facility] (Lab) [address] [place], [address], 02/25/2023 15:11:06 01/29/20 23 elect maki diogr am No observ ation record ed. [email or web address] [facility] [address], [place], [address], 01/28/2023 16:28:49 02/19/20 23 02/18/2023 US, echoc ardio gram, trans thora cic, compl ete, w/ color flow No observ ation record ed. [address], [place], [address], 02/23/2023 16:07:02 Result Notes None recorded. Problems Name Problem SNOMED Code Status Onset Date Resolution Date Notes Provider Name and Address Organization Details Recorded Time Intermittent palpitations 085804444 Active 2022 WILFRIDO WhitakerP [address], [place], [address], [facility] 3 16:11:12 Diastolic dysfunction 5400481 Active 2022 Apple Bertrand [employer] [address], [address], [place], [address], [facility] 3 16:07:18 Hypercalcemia 87094710 Active 2022 WILFRIDO WhitakerP [address], [address], [place], [address], [facility] 3 16:09:33 Problem Notes None recorded. Procedures Surgical History Date Name Laterality Status Provider Name and Address Organization Details Recorded Time lumpectomy of breast completed Not Available [facility] 01/05/2023 20:01:23 Imaging Results Imaging Date Name Status LastModified by Organization Details LastModified Time 01/28/2023 electrocardiogram completed [email or web address] [facility] [address], [place], [address], 01/28/2023 16:28:49 02/18/2023 US, echocardiogram, transthoracic, complete, w/ color flow completed [email or web address] [address], [place], [address], 02/23/2023 16:07:02 Procedure Notes None recorded. Medical [...] Updated DateTime 08/04/2021 25.1 kg/m2 180.34 cm 42398.63 g Not Available [facility] 01/05/2023 20:01:45 Date Recorded Body height Systolic blood pressure Diastolic blood pressure Provider Name and Address Organization Details Last Updated DateTime 08/05/2021 180.34 cm 130 mm[Hg] 78 mm[Hg] Not Available [facility] 01/05/2023 20:01:44 Date Recorded Body height Body mass index (BMI) Body weight Body temperature Heart rate Oxygen saturation Oxygen saturation in Arterial blood by Pulse oximetry Systolic blood pressure Diastolic blood pressure Provider Name and Address Organization Details Last Updated DateTime 3 180.34 cm 27.3 kg/m2 56972.1 g 97.7 [degF] 88 /min 98 % 98 % 120 mm[Hg] 60 mm[Hg] Angeles Vila MA [facility] 3 15:46:43 Date Recorded Body height Body mass index (BMI) Body weight Body temperature Heart rate Oxygen saturation Oxygen saturation in Arterial blood by Pulse oximetry Systolic blood pressure Diastolic blood pressure Provider Name and Address Organization Details Last Updated DateTime 3 180.34 cm 27.2 kg/m2 59668.5 1 g 97.8 [degF] 86 /min 99 % 99 % 116 mm[Hg] 74 mm[Hg] Sameera Watts RN [facility] 3 16:02:26 Social History Question Answer Notes LastModified by Organizat ion Details LastModified Time Tobacco Smoking Status Never Smoker Not Available [facility] 01/05/2023 20:01:17 Do You Have An Advance Directive? No [id number] Information not available 01/05/2023 What Is Your Level Of Alcohol Consumption? Moderate MIGRATION.[id number] 2218 Information not available 01/05/2023 Do You Wear A Helmet When Biking? Yes MIGRATION.268337 5688 Information not available 01/05/2023 What Is Your Level Of Caffeine Consumption? Moderate MIGRATION.876346 4394 Information not available 01/05/2023 In The 14 Days Before Symptom Onset, Have You Had Close Contact With A Laboratory-confir med COVID-19 While That Case Was Ill? No MIGRATION.[id number] 5612 Information not available 01/05/2023 In The 14 Days Before Symptom Onset, Have You Had Close Contact With A Person Who Is Under Investigation For COVID-19 While That Person Was Ill? No MIGRATION.[id number] 9426 Information not available 01/05/2023 What Type Of Diet Are You Following? REGULAR MIGRATION.400866 6889 Information not available 01/05/2023 What Is The Highest Grade Or Level Of School You Have Completed Or The Highest Degree You Have Received? 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 No MIGRATION.693036 2842 Information not available 01/05/2023 What Is The Fluoride Status Of Your Home? Unknown MIGRATION.328477 5709 Information not available 01/05/2023 Are There Any Guns Present In Your Home? No MIGRATION.437475 5517 Information not available 01/05/2023 Do You Use Insect Repellent Routinely? Yes MIGRATION.644282 5066 Information not available 01/05/2023 [facility] MIGRATION.990057 2667 Information not available 01/05/2023 Do You Have A Medical Power Of Operations And Maintenance Technican? No MIGRATION.919522 9115 Information not available 01/05/2023 Have You Ever Been Counseled For Unhealthy Alcohol Use? No MIGRATION.223779 5262 Information not available 01/05/2023 Do You Have Any Pets? Yes MIGRATION.817990 2664 Information not available 01/05/2023 What Is Your Relationship Status? Single MIGRATION.882793 2258 Information not available 01/05/2023 Do You Use Your Seat Belt Or Car Seat Routinely? Yes MIGRATION.581661 9840 Information not available 01/05/2023 Do You Have Smoke And Carbon Monoxide Detectors In Your Home? Yes MIGRATION.682708 4142 Information not available 01/05/2023 Are You Passively Exposed To Smoke? No MIGRATION.510652 5403 Information not available 01/05/2023 Are There Any Smokers In Your House? No MIGRATION.641355 5380 Information not available 01/05/2023 Do You Participate In Social Media? Yes MIGRATION.041584 2059 Information not available 01/05/2023 What Types Of Sporting Activities Do You Participate In? None MIGRATION.594269 2915 Information not available 01/05/2023 Do You Feel Stressed (tense, Restless, Nervous, Or Anxious, Or Unable To Sleep At Night)? [id number] MIGRATION.313367 3081 Information not available 01/05/2023 Do You Use Any Illicit Or Recreational Drugs? No MIGRATION.908379 0905 Information not available 01/05/2023 Do You Use Sunscreen Routinely? Yes MIGRATION.607284 0830 Information not available 01/05/2023 Has Tobacco Cessation Counseling Been Provided? No MIGRATION.205373 4471 Information not available 01/05/2023 Have You Recently Traveled Abroad? No MIGRATION.652082 2623 Information not available 01/05/2023 Are You Currently In School? No MIGRATION.546432 6827 Information not available 01/05/2023 Do You Have Any Dietary Restrictions? No MIGRATION.018279 8246 Information not available 01/05/2023 Do You Or Have You Ever Used Any Other Forms Of Tobacco Or Nicotine? No MIGRATION.700788 4566 Information not available 01/05/2023 Sex: Unknown Functional Status Question Answer Note LastModified by Organizat ion Details LastModified Time What is your exercise level? Occasional [id number] 26 Information not available 01/05/2023 Mental Status None recorded. Family History Relationship Description Onset Age of this Age Resolved Age Notes LastModified by Organization Details LastModified Time Father No current problems or disability [id number] Not available 01/05/2023 20:01:24 Mother No current problems or disability MIGRATION.[id number] Not available 01/05/2023 20:01:24 Medical History No [...] SNOMED-CT Code Diagnosis ICD10 Code Diagnosis Note [id number] [address] [place] [address] 08/04/2021 00:00:00 08/04/2021 16:51:[id number] [address] 08/05/2021 00:00:00 08/05/2021 17:50:52 [id number] JELENA Whitaker [address] [address] 01/28/2023 15:30:54 01/28/2023 16:35:48 Intermittent palpitations 777406608 R00.2 R00.0 Chronic, recurrentW ill check labs, ekg and send for echo.In the meantime, start metoprolol 25mg ER QHS. Continue propranolo l 10mg TID PRNPatient advised to call if palpitatio ns get worse or there are any associated chest pain, shortness of breath and/or dizziness. [id number] JELENA Whitaker [address] [address] 02/23/2023 15:56:49 02/23/2023 16:33:39 Diastolic dysfunction 7887475 I51.9 New finding on echo (02/18/23)G rade II diastolic dysfunctio nEncourage d pt to work on good diet and routine cardiovasc ular exercise to strengthen heart.Will plan for yearly echo and consider cardiology referral if any changes. Hypercalcemia 23181857 E 83.52 New finding on labsCa 10.5 (01/28/23)W ill check PTH and ionized ca. Intermitte nt palpitations 616170193 R00.2 R00.0 Improved with beta blockers.L abs [...] Lopez Member ID Guarantor Name 01/28/2023 1 [facility]: (PPO) [id number] Johnathan Lang [id number] Zena Lang 02/23/2023 1 [facility]: (PP[place]) [id number] Johnathan Lang [id number] 49 Zena Lang Notes Date Note Type [...] if she takes the propranolol. Apple Bertrand, [facility] [address] [facility] [facility] [address], [place], [address], [facility] 01/28/2023 18:32:41 02/23/2023 [...] if she takes the propranolol. Apple Bertrand, [employer] [address] [facility] [facility] [address], [place], [address], [place] [facility] 02/23/2023 17:01:07 OBGyn Episode No OBEpisode recorded.
[2025-01-23] MEDS: KETOROLAC 15 MG/ML VIAL (*BKC) IV PUSH (06:59)
[2025-01-23] MEDS: ACETAMINOPHEN 500 MG TABLET 1000 MG PO (06:59)
--- NOTE | 2025-01-23 07:12 | WPDHPUPDATE1 ---
History and Physical Update Update Date/Time: 01/23/25 07:12 History and Physical has been reviewed, including an updated exam of the patient. There are NO changes in the patient's condition. Risks, benefits, and alternatives have been discussed and questions answered. Patient agrees to proceed with procedure.
--- NOTE | 2025-01-23 07:22 | P.PNAN_ITS ---
Anes - Initial Pre Proc Eval Procedure: Operation Date: 01/23/25 07:30 Proposed Procedures p Diagnostic Laparoscopy - Ruslan Jose MD Date/Time: 01/23/25 07:22 Surgeon: Ruslan Jose MD Pre Op Diagnosis: pelvic pain Patient Data Age: 29 Gender: F Height: 1.8 m Weight: 87.6 kg Last Vital Signs Temp 36.3 C L 01/23/25 06:43 Pulse 85 01/23/25 06:43 BP 125/70 01/23/25 06:43 Pulse Ox 98 01/23/25 06:43 O2 Del Method Room Air 01/23/25 06:43 Allergies Allergy/AdvReac Type Severity Reaction Status Date / Time No Known Allergies Allergy Verified 01/23/25 06:42 Home Medications ?Medication ?Instructions ?Recorded ?Confirmed ?Type ziprasidone HCl 60 mg capsule 60 mg PO HS 12/19/23 01/16/25 History cholecalciferol (vitamin D3) 25 25 mcg PO DAILY 01/16/25 01/16/25 History mcg (1,000 unit) capsule (Vitamin D3) magnesium 250 mg tablet 500 mg PO HS 01/16/25 01/16/25 History prazosin 1 mg capsule 1 mg PO HS 01/16/25 01/16/25 History Patient hx anesthesia problems: none Family hx anesthesia problems: none Results Review: All pre-operative results and documents have been reviewed as part of the pre- operative evaluation. [facility] Social History Social History Smoking status: Never smoker Alcohol intake: current Drinks per week: 2 Substance use: never Substance use type: marijuana Other substance usage details: Nightly Living arrangements: with friend(s) Additional living arrangements comments: BOYFRIEND Spiritual care concerns: No Anes - Eval Final PreProcedure Day of Procedure 01/23/25 07:22 Patient weight: overweight Heart: regular rate and rhythm Lungs: clear to auscultation Airway: Mallampati scale class II Neurological: alert and oriented Last oral intake: >/= 8 hours ASA classification: II Emergent: no Anesthetic plan: proceed Anesthesia type and monitoring: general ETT and standard monitoring Results Review: All pre-operative results and documents have been reviewed as part of the pre- operative evaluation. Informed Consent: The patient's anesthetic plan and its attendant risks and benefits were discussed with the patient/family/POA. Questions were solicited and answers provided to the satisfaction of the patient/family/POA.
[2025-01-23] MEDS: SCOPOLAMINE 1 MG PATCH 1 PATCH TRANSDERM (07:26)
[2025-01-23] MEDS: LACTATED RINGERS 1,000 ML 30 ML IV CONT ×2 (07:26→09:45)
--- NOTE | 2025-01-23 09:07 | W.PM.PROC2 ---
Procedure Note - Detailed Date of Procedure 01/23/25 Pre-op Diagnosis pelvic pain, endometriosis Post-op Diagnosis Same Procedure Performed Diagnostic laparoscopy, resection and fulguration of endometriosis requiring over 1 hour. Left left oophorectomy. Surgeon Ruslan Jose MD Anesthesia General Indications Pelvic pain Findings Deep endometrial implants throughout the pelvis. Present the posterior dome of the bladder and cervix. There was deep implants with scarring on the left hemipelvis. Ovary was adherent to the left pelvic sidewall. Ovary contained multiple endometrial implants. Medial right adnexa contained deep penetrating scarring endometrial implants as did the right uterosacral ligament. Description of Procedure The patient was taken to the operating room. She was prepped and draped in the dorsal lithotomy position after induction general anesthesia. A 5 mm incision was made with a scalpel on the abdominal skin in the left upper quadrant of the abdomen. A 5 mm trocar was inserted into the intra-abdominal cavity under direct visualization the scope. In the same fashion a 11 mm left lower quadrant trocar was inserted and a11 mm infraumbilical trocar was inserted. Resection of the deep penetrating endometrial implants around the bladder was performed with sharp and blunt dissection then using LigaSure cautery. Ureter was identified dissected out on the left side. The left oophorectomy was performed after that with removal scar tissue endometriosis from the lateral left pelvic sidewall. Endometriosis was the right pelvic sidewall after identification of the ureter and dissection out down the level the uterine artery. Endometriosis was removed from the right uterosacral ligament. Endometriosis of the posterior cervix was cauterized. Interceed was placed over the open dissected areas of the bilateral hemipelvis. The pelvis was irrigated. The pneumoperitoneum was reduced. The trocars were removed. Skin was closed with subcuticular 4 micro. The patient's incisions were covered with Dermabond. She was taken recovery room in stable condition. Sponge lap and needle counts were correct x2. Estimated Blood Loss 10 Complications No immediate complications Condition Stable Disposition Same day
[2025-01-23] MEDS: fentaNYL CITRATE INJ (*CRX) 100 MCG/2 ML VIAL 25 MCG IV PUSH ×8 (09:16→09:49)
[2025-01-23] MEDS: oxyCODONE HCL (*CRX) 5 MG TAB IR PO (10:22)
== END 2025-01-23 11:05 | disposition home or self-care (01) ==
PROVIDERS: Visit Provider Obstetrics & Gynecology
PROC: (CPT 49320; principal; 2025-01-23 07:30)
DX: N80.353 Endometriosis of bilateral pelvic sidewall, unspecified depth (principal); N80.102 Endometriosis of left ovary, unspecified depth; N80.3C1 Endometriosis of the right uterosacral ligament, unspecified depth; N80.A0 Endometriosis of bladder, unspecified depth; N80.00 Endometriosis of the uterus, unspecified; N73.6 Female pelvic peritoneal adhesions (postinfective); N83.12 Corpus luteum cyst of left ovary; N83.02 Follicular cyst of left ovary; G89.18 Other acute postprocedural pain; D64.9 Anemia, unspecified; J45.909 Unspecified asthma, uncomplicated; F12.90 Cannabis use, unspecified, uncomplicated; Z98.890 Other specified postprocedural states
CPT/HCPCS: 58661; 58662; 88304; 88305; A9270; J1100; J1596; J1885; J2250; J2270; J2405; J2704; J2710; J3010; J7030; J7120

== ENCOUNTER 2025-03-13 06:53 | Emergency (ER) | payer BC, SELFPAY ==
--- OUTSIDE RECORDS SUMMARY | 2025-03-13 06:56 | XMS_ITS | Data Portability ---
[facility] Organization [facility] Address [address] [place] [address] Care Team Providers Care Storekeeper Engineering Name Role Phone JESSA WINTERS Primary Care Provider [phone] Assessment Encounter Date Assessment Date Assessment LastModified by Organization Details LastModified Time 06/14/2019 06/14/2019 note for work to excuse for today's visit Not available 06/14/2019 17:02:36 Plan of Treatment Reminders Order Date Submit Date Provider Last Modified By Organization Details Last Modified Time Details Appointments None recorded. Lab celiac disease comprehens haroon panel, serum 2016 017 [facility], [facility], [address], [place], [address], 7 16:19:24 celiac disease comprehens haroon panel, serum 2016 017 [facility], [facility], [facility] [address], [place], [address], 7 02:37:35 CBC w/ auto diff 2016 017 [facility], [facility], [address], [place], [address], 7 16:20:52 CMP, serum or plasma 2016 017 [facility], [facility], [address], [place], [address], 7 16:20:52 TSH, ultra-sens itive, serum 2016 017 [facility], [address] [place] [address], [address], [place], [address], 7 16:20:53 celiac disease comprehens haroon panel, serum 2016 017 [facility], [address] [place] [address], [address], [place], [address], 7 16:20:51 vitamin D, 25-hydroxy , total, serum 2016 017 [facility], [address] [place] [address], [address], [place], [address], 7 16:20:53 Referral None recorded. Procedures None recorded. Surgeries None recorded. Imaging None recorded. Medication Orders Seasonique 0.15 mg-30 mcg (84)/10 mcg(7) tablets,3 month dose pack 2018 019 [facility] #[id number], [address] [place], [address], 9 17:00:10 Zofran ODT 8 mg disintegra ting tablet 2017 [facility]18 [facility] [address] [place], [address], 9 15:58:29 OsmoPrep 1.5 gram (1.102-0.3 98) tablet 2016 017 [facility] [address] [place], [address], 7 16:27:46 Miralax 17 gram/dose oral powder 2016 017 [facility]/Pharmacy #2510, [address] [place], [address], 7 16:27:32 Linzess 145 mcg capsule 2016 Carlos estelle [facility], [address] [place], [address], 7 16:27:28 Patient TargetsNo targets recorded. Patient Instructions Encounter Date Encounter Id Patient Instructions Last Modified By Organization Details Last Modified Time 03/15/2017 [id number] constipation: care instructions Not available 03/15/2017 17:41:21 diet - low fodmap lenglema Not availabl e 03/16/2017 09:44:44 04/12/2017 [id number] OK for work note for yesterday and today Not available 04/13/2017 02:37:16 Reason for Referral None Reported. Results Created Date Observation Date Name Description Value Unit Range Abnormal Flag Note LastModifiedBy Organization Detail LastModifiedTime 03/15/20 17 03/16/2017 sugey c disea se compr ehens haroon panel , serum endomysial antibody IgA NEGATI VE negati ve Not Available [facility] ([facility]) [address] [facility], [place], [address], 03/16/2017 16:20:51 03/15/20 17 03/16/2017 sugey c [...] TIVE ENTER OPATH Y. Not Available [facility] ([facility]) [address] [facility] [facility], [place], [address], 03/16/2017 16:20:51 03/15/20 17 03/16/2017 sugey c disea se compr ehens haroon panel , serum immunoglobul in A, qn, serum 73 mg/dL 87-352 below low normal Not Available [facility] ([facility]) [address] [facility], [place], [address], 03/16/2017 16:20:51 03/15/20 17 03/16/2017 sugey c disea se compr ehens haroon panel , serum T-transgluta minase (ttg) IgG <2 U/mL 0-5 NEGAT HAROON 0 - 5 WEAK POSIT HAROON 6 - 9 POSIT HAROON >9 Not Available [facility] ([facility]) [address] [facility], [place], [address], 03/16/2017 16:20:51 03/15/20 17 03/16/2017 CBC w/ auto diff WBC 10.2 x10e3 /uL 3.4-10 .8 Not Available [facility] ([facility]) [address] [facility], [place], [address], 03/16/2017 16:20:52 03/15/20 17 03/16/2017 CBC w/ auto diff RBC 4.75 x10e6 /uL 3.77-5 .28 Not Available [facility] ([facility]) [address] [facility], [place], [address], 03/16/2017 16:20:52 03/15/20 17 03/16/2017 CBC w/ auto diff hemoglobin 14.3 g/dL 11.1-1 5.9 Not Available [facility] ([facility]) [address] [place], [address], 03/16/2017 16:20:52 03/15/20 17 03/16/2017 CBC w/ auto diff hematocrit 40.5 % 34.0-4 6.6 Not Available [facility] ([facility]) [address] [place], [address], 03/16/2017 16:20:52 03/15/20 17 03/16/2017 CBC w/ auto diff MCV 85 fL 79-97 Not Available [facility] ([facility]) [address] [facility], [place], [address], 03/16/2017 16:20:52 03/15/20 17 03/16/2017 CBC w/ auto diff MCH 30.1 pg 26.6-3 3.0 Not Available [facility] ([facility]) [address] [facility], [place], [address], 03/16/2017 16:20:52 03/15/20 17 03/16/2017 CBC w/ auto diff MCHC 35.3 g/dL 31.5-3 5.7 Not Available [facility] ([facility]) [address] [facility], [place], [address], 03/16/2017 16:20:52 03/15/20 17 03/16/2017 CBC w/ auto diff RDW 13.4 % 12.3-1 5.4 Not Available [facility] ([facility]) [address] [facility], [place], [address], 03/16/2017 16:20:52 03/15/20 17 03/16/2017 CBC w/ auto diff platelets 287 x10e3 /uL 150-37 9 Not Available [facility] ([facility]) [address] [facility], [place], [address], 03/16/2017 16:20:52 03/15/20 17 03/16/2017 CBC w/ auto diff neutrophils 61 % Not Available [facility]) [address] [place], [address], 03/16/2017 16:20:52 03/15/20 17 03/16/2017 CBC w/ auto diff lymphs 32 % Not Available [facility] ([facility]) [address] [facility], [place], [address], 03/16/2017 16:20:52 03/15/20 17 03/16/2017 CBC w/ auto diff monocytes 6 % Not Available [facility] ([facility]) [address] [place], [address], 03/16/2017 16:20:52 03/15/20 17 03/16/2017 CBC w/ auto diff eos 1 % Not Available [facility] ([facility]) [address] [place], [address], 03/16/2017 16:20:52 03/15/20 17 03/16/2017 CBC w/ auto diff basos 0 % Not Available [facility] ([facility]) [address] [place], [address], 03/16/2017 16:20:52 03/15/20 17 03/16/2017 CBC w/ auto diff immature cells MULTIPLE DRUM SANDER Not Available [facility] ([facility]) [address] [place], [address], 03/16/2017 16:20:52 03/15/20 17 03/16/2017 CBC w/ auto diff neutrophils (absolute) 6.2 x10e3 /uL 1.4-7. 0 Not Available [facility] ([facility]) [address] [place], [address], 03/16/2017 16:20:52 03/15/20 17 03/16/2017 CBC w/ auto diff lymphs (absolute) 3.3 x10e3 /uL 0.7-3. 1 above high normal Not Available [facility] ([facility]) [address] [place], [address], 03/16/2017 16:20:52 03/15/20 17 03/16/2017 CBC w/ auto diff monocytes(ab solute) 0.6 x10e3 /uL 0.1-0. 9 Not Available [facility] ([facility]) [address] [place], [address], 03/16/2017 16:20:52 03/15/20 17 03/16/2017 CBC w/ auto diff eos (absolute) 0.1 x10e3 /uL 0.0-0. 4 Not Available [facility] ([facility]) [address] [place], [address], 03/16/2017 16:20:52 03/15/20 17 03/16/2017 CBC w/ auto diff baso (absolute) 0.0 x10e3 /uL 0.0-0. 2 Not Available [facility] ([facility]) [address] [place], [address], 03/16/2017 16:20:52 03/15/20 17 03/16/2017 CBC w/ auto diff immature granulocytes 0 % Not Available [facility]) [address] [place], [address], 03/16/2017 16:20:52 03/15/20 17 03/16/2017 CBC w/ auto diff immature grans (abs) 0.0 x10e3 /uL 0.0-0. 1 Not Available [facility] ([facility]) [address] [place], [address], 03/16/2017 16:20:52 03/15/20 17 03/16/2017 CBC w/ auto diff NRBC MULTIPLE DRUM SANDER Not Available [facility] ([facility]) [address] [place], [address], 03/16/2017 16:20:52 03/15/20 17 03/16/2017 CBC w/ auto diff hematology comments: MULTIPLE DRUM SANDER Not Available [facility] ([facility]) [address] [place], [address], 03/16/2017 16:20:52 03/15/20 17 03/16/2017 CMP, serum or plasm a glucose, serum 89 mg/dL 65-99 Not Available [facility] ([facility]) [address] [place], [address], 03/16/2017 16:20:52 03/15/20 17 03/16/2017 CMP, serum or plasm a BUN 15 mg/dL 6-20 Not Available [facility] ([facility]) [address] [facility] [place], [address], 03/16/2017 16:20:52 03/15/20 17 03/16/2017 CMP, serum or plasm a creatinine, serum 0.72 mg/dL 0.57-1 .00 Not Available [facility] ([facility]) [address] [facility] [place], [address], 03/16/2017 16:20:52 03/15/20 17 03/16/2017 CMP, serum or plasm a eGFR if nonafricn AM 122 mL/mi n/1.7 3 >59 Not Available [facility] ([facility]) [address] [place], [address], 03/16/2017 16:20:52 03/15/20 17 03/16/2017 CMP, serum or plasm a eGFR if africn AM 140 mL/mi n/1.7 3 >59 Not Available [facility] ([facility]) [address] [place], [address], 03/16/2017 16:20:52 03/15/20 17 03/16/2017 CMP, serum or plasm a BUN/creatini ne ratio 21 9-23 Not Available [facility] ([facility]) [address] [place], [address], 03/16/2017 16:20:52 03/15/20 17 03/16/2017 CMP, serum or plasm a sodium, serum 143 mmol/ L 134-14 4 Not Available [facility] ([facility]) [address] [place], [address], 03/16/2017 16:20:52 03/15/20 17 03/16/2017 CMP, serum or plasm a potassium, serum 4.8 mmol/ L 3.5-5. 2 Not Available [facility] ([facility]) [address] [place], [address], 03/16/2017 16:20:52 03/15/20 17 03/16/2017 CMP, serum or plasm a chloride, serum 103 mmol/ L 96-106 Not Available [facility] ([facility]) [address] [facility], [place], [address], 03/16/2017 16:20:52 03/15/20 17 03/16/2017 CMP, serum or plasm a carbon dioxide, total 21 mmol/ L 18-29 Not Available [facility] ([facility]) [address] [facility] [place], [address], 03/16/2017 16:20:52 03/15/20 17 03/16/2017 CMP, serum or plasm a calcium, serum 9.7 mg/dL 8.7-10 .2 Not Available [facility] ([facility]) [address] [place], [address], 03/16/2017 16:20:52 03/15/20 17 03/16/2017 CMP, serum or plasm a protein, total, serum 6.7 g/dL 6.0-8. 5 Not Available [facility] ([facility]) [address] [facility], [place], [address], 03/16/2017 16:20:52 03/15/20 17 03/16/2017 CMP, serum or plasm a albumin, serum 4.6 g/dL 3.5-5. 5 Not Available [facility] ([facility]) [address] [place], [address], 03/16/2017 16:20:52 03/15/20 17 03/16/2017 CMP, serum or plasm a globulin, total 2.1 g/dL 1.5-4. 5 Not Available [facility] ([facility]) [address] [place], [address], 03/16/2017 16:20:52 03/15/20 17 03/16/2017 CMP, serum or plasm a A/G ratio 2.2 1.2-2. 2 Not Available [facility] ([facility]) [address] [facility] [place], [address], 03/16/2017 16:20:52 03/15/20 17 03/16/2017 CMP, serum or plasm a bilirubin, total <0.2 mg/dL 0.0-1. 2 Not Available [facility] ([facility]) [address] [facility] [place], [address], 03/16/2017 16:20:52 03/15/20 17 03/16/2017 CMP, serum or plasm a alkaline phosphatase, S 45 IU/L 39-117 Not Available [facility] ([facility]) [address] [facility] [place], [address], 03/16/2017 16:20:52 03/15/20 17 03/16/2017 CMP, serum or plasm a AST (SGOT) 15 IU/L 0-40 Not Available [facility] ([facility]) [address] [facility] [place], [address], 03/16/2017 16:20:52 03/15/20 17 03/16/2017 CMP, serum or plasm a ALT (SGPT) 13 IU/L 0-32 Not Available [facility] ([facility]) [address] [place], [address], 03/16/2017 16:20:52 03/15/20 17 03/16/2017 vitam in [...] UM AND D. LEVI MOLINA DC: [facility] . 2. EMILIE Bergeron MF, ANGEL COFFMAN NC, BISCH OFF-F PATRICIA I BALLESTEROS, ET AL. EVALU ATION , TREAT MENT, AND PREVE NTION OF VITAM IN D DEFIC IENCY : AN ENDOC RINE SOCIE TY CLINI HUY PRACT ICE GUIDE LINE. JCEM. 2010; 96(7) :1911 -30. Not Available [facility] ([facility]) [address] [place], [address], 03/16/2017 16:20:53 03/15/20 17 03/16/2017 TSH, ultra -sens itive , serum TSH 1.680 uIU/m L 0.450- 4.500 Not Available [facility] ([facility]) [address] [place], [address], 03/16/2017 16:20:53 04/21/20 17 04/22/2017 sugey c disea se compr ehens haroon panel , serum endomysial antibody IgA NEGATI VE negati ve Not Available [facility] ([facility]) [address] [place], [address], 04/22/2017 16:19:24 04/21/20 17 04/22/2017 sugey c [...] TIVE ENTER OPATH Y. Not Available [facility] ([facility]) [address] [place], [address], 04/22/2017 16:19:24 04/21/20 17 04/22/2017 sugey cinthia disea se compr ehens haroon panel , serum immunoglobul in A, qn, serum 69 mg/dL 87-352 below low normal Not Available [facility] ([facility]) [address] [facility], [place], [address], 04/22/2017 16:19:24 04/21/20 17 04/22/2017 sugey cinthia disea se compr ehens haroon panel , serum T-transgluta minase (ttg) IgG <2 U/mL 0-5 NEGAT HAROON 0 - 5 WEAK POSIT HAROON 6 - 9 POSIT HAROON >9 Not Available [facility] ([facility]) [address] [facility], [place], [address], 04/22/2017 16:19:24 06/19/20 19 06/11/2019 XR, chest , 2 view No observ ation record ed. Not Available 2018 16:42:06 Result Notes None recorded. 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 7 09:34:07 Hypoglyc emia 367158192 Completed 201201/13/2013 Location : None;Sev erity: Moderate ;Progres s: Stable;A dded By: Jessa Winters;Add to Current Problems : NO Not Available [facility] 7 09:34:07 Vitamin D deficien cy 60132789 Active 2012 Location : None;Sev erity: Moderate ;Progres s: Stable;A dded By: Jessa Winters;Add to Current Problems : YES Not Available [facility] 7 09:34:07 Malaise and fatigue 435305780 Active 2012 Location : None;Sev erity: Moderate ;Progres s: Stable;A dded By: Charis Mejia;Add to Current Problems : NO Not Available [facility] 7 09:34:07 Constipa tion 32990023 Active 2014 Location : None;Sev erity: Moderate ;Progres s: Stable;A dded By: Alexia Stauffer i;Rylee dd to Current Problems : YES Not Available [facility] 7 09:34:07 Tubercul osis screenin g Completed 201310/03/2014 Location : None;Sev erity: Moderate ;Progres s: Stable;A dded By: Bria Lozano;Add to Current Problems : YES Not Available [facility] 7 09:34:07 HPV - Human papillom avirus test positive Active 2013 Location : None;Sev erity: Moderate ;Progres s: Stable;A dded By: Bria Lozano;Add to Current Problems : NO Not Available [facility] 7 09:34:58 Problem Notes None recorded. Procedures Surgical History Date Name Laterality Status Provider Name and Address Organization Details Recorded Time Breast Surgery completed Jessa Winters MD Attn: Accounting[address] [place], [address], [facility] 03/15/2017 17:29:21 Imaging Results Imaging Date Name Status LastModified by Organiz atformerly [facility] Details LastModified Time 06/11/2019 XR, chest, 2 [...] one po q hs 11/04 completed RxNorm: 310918; Allow Substit ution: True Not Available Not Available Not Available Vitamin D3 10 mcg (400 unit) tablet 5 po daily 04/12 completed Allow Substit ution: True Not Available Not Available Not Available sertraline 25 mg tablet 3 tablets everyday at noon 08/13 completed RxNorm: 384096; Allow Substit ution: True Not Available Not [...] ) by mouth daily 08/13 completed RxNorm: 144676; Allow Substit ution: True Not Available Not [...] Address Organization Details Last Updated DateTime 8 15892.1 9 g 97.7 [degF] 99 % 99 % 96 /min 106 mm[Hg] 56 mm[Hg] Jessa Winters MD Attn: Stephania mckeon,[address] [place], [address], [facility] 8 16:12:15 Date Recorded Body height Body mass index (BMI) Body weight Oxygen saturation Oxygen saturation in Arterial blood by Pulse oximetry Heart rate Body temperature Systolic blood pressure Diastolic blood pressure Provider Name and Address Organization Details Last Updated DateTime 9 180.34 cm 23 kg/m2 26787.0 9 g 98 % 98 % 90 /min 99.3 [degF] 118 mm[Hg] 60 mm[Hg] Nancy Saeed MA [facility] 9 15:58:01 Date Recorded Body height Body weight Body mass index (BMI) Body temperature Oxygen saturation Oxygen saturation in Arterial blood by Pulse oximetry Heart rate Systolic blood pressure Diastolic blood pressure Provider Name and Address Organization Details Last Updated DateTime 7 177.8 cm 32696.9 8 g 22 kg/m2 98 [degF] 99 % 99 % 100 /min 122 mm[Hg] 62 mm[Hg] Tory Mendoza [place] [facility] 7 17:03:05 Date Recorded Body height Body weight Body mass index (BMI) Oxygen saturation Oxygen saturation in Arterial blood by Pulse oximetry Heart rate Body temperature Systolic blood pressure Diastolic blood pressure Provider Name and Address Organization Details Last Updated DateTime 7 177.8 cm 40165.8 6 g 21.5 kg/m2 98 % 98 % 124 /min 97.8 [degF] 124 mm[Hg] 68 mm[Hg] Jessa Winters MD Attn: Stephania mckeon,[address] [place], [address], [facility] 7 02:31:43 Date Recorded Body height Body mass index (BMI) Body weight Heart rate Systolic blood pressure Diastolic blood pressure Provider Name and Address Organization Details Last Updated DateTime 7 177.8 cm 21.8 kg/m2 42201.6 g 76 /min 110 mm[Hg] 78 mm[Hg] Linda Jackson [facility] 7 16:28:47 Social History Question Answer Notes LastModified by Organizat ion Details LastModified Time Tobacco Smoking Status Never Smoker Jessa Winters MD Attn: Accounting,[address] , [place], [address], [facility] 03/15/2017 17:28:56 What Is [...] Time HPV, quadrivalent 4 completed Not Available [facility] 12/08/2019 02:11:44 varicella 2 completed Not Available [facility] 11/10/2016 06:02:01 varicella 7 completed [facility] Available [facility] 11/10/2016 06:02:01 MMR 0 completed Not Available [...] 06:02:02 Hib (PRP-OMP) 7 completed Not Available [facility] 11/10/2016 06:02:02 Hib (PRP-OMP) 9 completed Not Available [facility] 11/10/2016 06:02:02 IPV 7 completed Not Available [facility] 11/10/2016 06:02:02 IPV 8 completed Not Available [facility] 11/10/2016 06:02:02 IPV 2 completed Not Available [facility] 11/10/2016 06:02:02 Tdap 2 completed Not Available [facility] 11/10/2016 06:02:03 HPV, quadrivalent 6 completed Not Available [facility] 11/10/2016 06:02:03 TST-PPD intradermal 4 completed Not Available [facility] 12/08/2019 02:11:44 IPV 7 completed Not Available [facility] 11/10/2016 06:02:03 DTP 8 completed Not Available [facility] 11/10/2016 06:02:03 DTP 2 completed Not Available [facility] 11/10/2016 06:02:04 DTP 7 completed Not Available [facility] 11/10/2016 06:02:04 DTP 7 completed Not Available [facility] 11/10/2016 06:02:04 DTP 9 completed Not Available [facility] 11/10/2016 06:02:04 Past Encounters Encounter ID Performer Location Encounter Start Date Encounter Closed Date Diagnosis/Indication Diagnosis SNOMED-CT Code Diagnosis ICD10 Code Diagnosis Note [id number] Jessa Winters MD [facility] [address] [place] [address] 03/15/2017 15:58:03 03/15/2017 17:53:11 Constipation 79691985 K59.00 Vitamin D deficiency 347 75413 E55.9 [id number] Jessa Winters MD [facility] [address] [place] [address] 04/12/2017 15:20:40 04/13/2017 15:16:13 Constipation 23938583 K59.00 no signs of obstructio n. She has no vomitting. She is drinking OK. Complains of pain with urination [id number] Jose Collins MD [facility] [address] [place] [address] 04/21/2017 16:02:35 04/21/2017 17:07:32 Constipation 25538890 K59.00 Linda will call to expedite her referral to Dr. Crain's office. [id number] Jessa Winters MD [facility] [address] [place] [address] 08/24/2018 15:36:21 08/25/2018 10:36:16 Acute gastroenteritis 04151899 K52.9 pt ed and precaution s given-- likely related to food ingestion but no fever or blood in stool-- no need for further evaluation unless not recovered in the next few days [id number] Jessa Winters MD [facility] [address] [place] [address] 06/14/2019 15:14:25 06/15/2019 09:00:39 Tachycardia 4628562 R00.0 you have had testing at the ER-- I will get those records to assure that the electrolyt es, mineral and thryoid were checked Disturbance in mood 1764 [address]45[address] Eliseo Diallo in a week and a half week about the medication and your new complaint of anxiety Panic disorder 537943713 F41.[address] Liz Premenstru al dysphoric disorder 282417 F32.81 we discussed monophasic control of menses [...] Lopez Member ID Guarantor Name 03/15/2017 1 [employer] [id number] Johnathan [id number] 49 Zena Lang 04/12/2017 1 [place] [id number] Johnathan Lang [id number] 49 Zena Lang 04/21/2017 1 [place] [id number] Johnathan Lang [id number] 49 Zena Lang 08/24/2018 1 [place] [id number] Johnathan Lang [id number] Zena Lang 06/14/2019 1 [place] [id number] Johnathan Lang [id number] Zena Lang Notes Date Note Type Note Provider Name and Address Organization Details Recorded Time 03/15/2017 text/html Abdominal PainRe ported bypatient.Quality:pain ;bloating;sharp Severity:mild Duration:constant Onset/Timing:worse Context:none Modifying Factors:nothing gives relief; nothing makes it worse Associated Symptoms:no fever; no heartburn; no shortness of breath;chills;nausea;c onstipation;decreased appetite Other:noneNotes: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 States she feels 10 [...] she has relief. AMERICO Rodriguez Attn: Accounting,[address] [place], [address], [facility] 04/21/2017 16:58:47 08/24/2018 text/html DiarrheaReported bypatient.Quality:freq uent;watery; [...] or tarry stools; no fecal incontinence;abdominal pain;nausea;vomiting;w eated Winters MD Attn: Accounting,[address] [place], [address], [facility] 08/24/2018 16:17:20 06/14/2019 text/html Anxiety/Depressi onRepo rted bypatient.Quality:symp toms worse in the evening;symptoms worse during the day; went to [place] for racing heart rate dx with anxiety [...] in salary Jessa Winters MD Attn: Accounting,[address] [place], [address], [facility] 06/14/2019 17:02:42 OBGyn Episode No OBEpisode recorded.
--- OUTSIDE RECORDS SUMMARY | 2025-03-13 06:56 | XMS_ITS | Data Portability ---
Author Organization [facility] [employer], Main Office Address [address] [place] [address] Assessment No assessment recorded. Plan of Treatment Reminders Order Date Submit Date Provider Last Modified By Organization Details Last Modified Time Details Appointments None recorded. Lab PTH (parathyroi d hormone), intact, serum or plasma 2022 023 [email or web address] [facility] (Lab), [address] [place], [address], 3 17:31:56 calcium, ionized, blood 2022 023 [email or web address] [id number] [facility] (Lab), [address] [place], [address], 3 14:31:01 magnesium, serum or plasma 2022 023 [email or web address] [facility] (Lab), [address] [place], [address], 3 16:36:52 CMP, serum or plasma 2022 023 [email or web address] [facility], [address] [place], [address], 3 16:37:20 iron + TIBC + ferritin, serum 2022 023 5 [facility], [address] [place], [address], 3 19:27:11 TSH, serum or plasma 2022 023 [facility], [address] [place], [address], 3 16:37:45 CBC 2022 023 [email or web address] [facility], [address] [place], [address], 3 16:37:55 Referral None recorded. Procedures None recorded. Surgeries None recorded. Imaging US, echocardiog peyton, transthorac ic, complete, w/ color flow - please call pt to schedule 2022 023 [facility] (Cardiology [facility]), [address] [place] [address] [address], [place], [address], 3 11:12:46 electrocard iogram 2022 023 [facility] [address], [place], [address], 3 16:35:48 Medication Orders metoprolol succinate ER 25 mg tablet,exte nded release 24 hr 2022 023 [facility]acy #[id number], [address] [place], [address], 3 16:24:22 propranolol 10 mg tablet 2022 023 [email or web address] 5 [facility]/Pharmacy #[id number], [address] [place], [address], 3 18:29:07 metoprolol succinate ER 25 mg tablet,exte nded release 24 hr 2022 023 5 [facility]/Pharmacy #[id number], [address] [place], [address], 3 18:31:45 propranolol 10 mg tablet 2022 023 [facility]/Pharmacy #[id number], [address] [place], [address], 16:18:26 Patient TargetsNo targets recorded. Patient InstructionsNo instructions recorded. Reason for Referral None Reported. Results Created Date Observation Date Name Description Value Unit Range Abnormal Flag Note LastModifiedBy Organization Detail LastModifiedTime 01/29/2001/28/2023 CBC W/O DIFFE RENTI AL white blood cells 11.1 x10'3 /uL 4.2-10 .8 high Not Available [facility] (Lab) [address] [place], [address], 01/28/2023 19:31:10 01/29/2001/28/2023 CBC W/O DIFFE RENTI AL red blood cells 4.97 x10'6 /uL 3.80-5 .20 Not Available [facility] (Lab) [address] [place], [address], 01/28/2023 19:31:10 01/29/2001/28/2023 CBC W/O DIFFE RENTI AL hemoglobin 15.0 g/dL 12.0-1 5.6 Not Available [facility] (Lab) [address] [place], [address], 01/28/2023 19:31:10 01/29/2001/28/2023 CBC W/O DIFFE RENTI AL hematocrit 43.9 % 35.7-4 5.7 Not Available [facility] (Lab) [address] [place], [address], 01/28/2023 19:31:10 01/29/2001/28/2023 CBC W/O DIFFE RENTI AL mean red cell volume 88.3 fL 82.0-9 9.0 Not Available [facility] (Lab) [address] [place], [address], 01/28/2023 19:31:10 01/29/20 23 01/28/2023 CBC W/O DIFFE RENTI AL mean red cell hemoglobin 30.2 pg 27.0-3 3.0 Not Available [facility] (Lab) [address] [place], [address], 01/28/2023 19:31:10 01/29/2001/28/2023 CBC W/O DIFFE RENTI AL mean RBC HGB concentratio n 34.2 g/dL 31.0-3 6.0 Not Available [facility] (Lab) [address] [place], [address], 01/28/2023 19:31:10 01/29/2001/28/2023 CBC W/O DIFFE RENTI AL red cell distribution width 12.3 % 11.8-1 5.5 Not Available [facility] (Lab) [address] [place], [address], 01/28/2023 19:31:10 01/29/20 23 01/28/2023 CBC W/O DIFFE RENTI AL platelets 346 x10'3 /uL 150-40 0 Not Available [facility] (Lab) [address] [place], [address], 01/28/2023 19:31:10 01/29/2001/28/2023 CBC W/O DIFFE RENTI AL mean platelet volume 10.2 fL 9.0-12 .4 Not Available [facility] (Lab) [address] [place], [address], 01/28/2023 19:31:10 01/29/2001/28/2023 COMPR EHENS HAROON METAB OLIC PANEL sodium 137 mmol/ L 137-14 5 Not Available [facility] (Lab) [address] [place], [address], 01/28/2023 19:42:40 01/29/2001/28/2023 COMPR EHENS HAROON METAB OLIC PANEL potassium 3.7 mmol/ L 3.5-5. 1 Not Available [facility] (Lab) [address] [place], [address], 01/28/2023 19:42:40 01/29/20 23 01/28/2023 COMPR EHENS HAROON METAB OLIC PANEL chloride 101 mmol/ L 98-107 Not Available [facility] (Lab) [address] [place], [address], 01/28/2023 19:42:40 01/29/20 23 01/28/2023 COMPR EHENS HAROON METAB OLIC PANEL carbon dioxide 26 mmol/ L 22-30 Not Available [facility] (Lab) [address] [place], [address], 01/28/2023 19:42:40 01/29/20 23 01/28/2023 COMPR EHENS HAROON METAB OLIC PANEL anion gap 13.7 mmol/ L 14-22 low Not Available [facility] (Lab) [address] [place], [address], 01/28/2023 19:42:40 01/29/20 23 01/28/2023 COMPR EHENS HAROON METAB OLIC PANEL glucose 86 mg/dL 70-99 Not Available [facility] (Lab) [address] [place], [address], 01/28/2023 19:42:40 01/29/20 23 01/28/2023 COMPR EHENS HAROON METAB OLIC PANEL BUN 11 mg/dL 8-19 Not Available [facility] (Lab) [address] [place], [address], 01/28/2023 19:42:40 01/29/20 23 01/28/2023 COMPR EHENS HAROON METAB OLIC PANEL creatinine 0.60 mg/dL 0.66-1 .25 low Not Available [facility] (Lab) [address] [place], [address], 01/28/2023 19:42:40 01/29/20 23 01/28/2023 COMPR EHENS HAROON METAB OLIC PANEL GFR >60 Refer ence Range : [place] GFR Healt hy Adult : >60 mL/mi n/1.7 3 m2 Chron ic Kidne y Disea se: 15-60 mL/mi n/1.7 3 m2 Kidne y Failu re: <15/m L/min /1.73 m2 www.n iddk. [facility].g ov The MDRD study equat ion has [...] calcu lator is avail able on the [facility] websi te: https ://rina hopkins.jerry gaston.o rg/pr ofess ional s/kdo qi/gf r_cal culat or Not Available [facility] (Lab) [address] [place], [address], 01/28/2023 19:42:40 01/29/2001/28/2023 COMPR EHENS HAROON METAB OLIC PANEL alkaline phosphatase 64 U/L 38-126 Not Available [facility] (Lab) [address] [place], [address], 01/28/2023 19:42:40 01/29/20 23 01/28/2023 COMPR EHENS HAROON METAB OLIC PANEL alanine aminotransfe rase 28 U/L 0-35 Not Available [facility] (Lab) [address] [place], [address], 01/28/2023 19:42:40 01/29/20 23 01/28/2023 COMPR EHENS HAROON METAB OLIC PANEL aspartate aminotransfe rase 30 U/L 15-37 Not Available [facility] (Lab) [address] [place], [address], 01/28/2023 19:42:40 01/29/20 23 01/28/2023 COMPR EHENS HAROON METAB OLIC PANEL bilirubin, total 0.50 mg/dL 0.20-1 .30 Not Available [facility] (Lab) [address] [place], [address], 01/28/2023 19:42:40 01/29/20 23 01/28/2023 COMPR EHENS HAROON METAB OLIC PANEL calcium 10.5 mg/dL 8.4-10 .2 high Not Available [facility] (Lab) [address] [place], [address], 01/28/2023 19:42:40 01/29/20 23 01/28/2023 COMPR EHENS HAROON METAB OLIC PANEL total protein 7.2 g/dL 6.3-8. 2 Not Available [facility] (Lab) [address] [place], [address], 01/28/2023 19:42:40 01/29/20 23 01/28/2023 COMPR EHENS HAROON METAB OLIC PANEL albumin 4.6 g/dL 3.4-5. 0 Not Available [facility] (Lab) [address] [place], [address], 01/28/2023 19:42:40 01/29/20 23 01/28/2023 COMPR EHENS HAROON METAB OLIC PANEL globulin 2.6 g/dL 2.6-4. 2 Not Available [facility] (Lab) [address] [place], [address], 01/28/2023 19:42:40 01/29/2001/28/2023 COMPR EHENS HAROON METAB OLIC PANEL A/G ratio 1.8 ratio 1.0-2. 0 Not Available [facility] (Lab) [address] [place], [address], 01/28/2023 19:42:40 01/29/20 23 01/28/2023 MAGNE SIUM magnesium 1.9 mg/dL 1.6-2. 3 Not Available [facility] (Lab) [address] [place], [address], 01/28/2023 19:42:44 01/29/2001/28/2023 TSH thyroid-stim ulating hormone 2.430 uIU/m L 0.465- 4.680 Not Available [facility] (Lab) [address] [place], [address], 01/28/2023 20:05:34 01/29/20 23 01/28/2023 IRON/ TIBC PANEL total iron binding capacity 363 mcg/d L 265-47 5 Not Available [facility] (Lab) [address] [place], [address], 01/28/2023 20:27:05 01/29/2001/28/2023 IRON/ TIBC PANEL % transferrin saturation 28 % 20-55 Not Available [facility] (Lab) [address] [place], [address], 01/28/2023 20:27:05 01/29/20 23 01/28/2023 IRON/ TIBC PANEL unsaturated iron bind capacity 263 mcg/d L 126-38 2 Not Available [facility] (Lab) [address] [place], [address], 01/28/2023 20:27:05 01/29/20 23 01/28/2023 IRON/ TIBC PANEL iron 100 mcg/d L 42-175 Not Available [facility] (Lab) [address] [place], [address], 01/28/2023 20:27:05 01/29/20 23 01/31/2023 DEREK TIN ferritin 59 NG/mL 6.24-1 37 Not Available [facility] (Lab) [address] [place], [address], 01/31/2023 13:12:49 02/24/20 23 02/23/2023 PARAT HY.HO RM(PT H)INT ACT-W /O CA intact parathyroid hormone 43.4 pg/mL 24.0-7 8.0 Pleas e note new refer ence range effec tive 12/03 . Not Available [facility] (Lab) [address] [place], [address], 02/23/2023 20:41:50 02/24/20 23 02/25/2023 CALCI UM, IONIZ ED/LC calcium, ionized, serum 4.8 mg/dL 4.5-5. 6 Perfo [place]med at: [place] [address] Lab Direc tor: Miguel mckenzie PhD, Phone : [phone] Not Available [facility] (Lab) [address] [place], [address], 02/25/2023 15:11:06 01/29/20 23 elect maki diogr am No observ ation record ed. [facility] [address], [place], [address], 01/28/2023 16:28:49 02/19/20 23 02/18/2023 US, echoc ardio gram, trans thora cic, compl ete, w/ color flow No observ ation record ed. [email or web address] [address], [place], [address], 02/23/2023 16:07:02 Result Notes None recorded. Problems Name Problem SNOMED Code Status Onset Date Resolution Date Notes Provider Name and Address Organization Details Recorded Time Intermittent palpitations 825319562 Active 2022 WILFRIDO WhitakerP [address], [place], [address], [employer] 3 16:11:12 Diastolic dysfunction 4878146 Active 2022 Apple Bertrand [facility] [address], [address], [place], [address], [employer] 3 16:07:18 Hypercalcemia 65223483 Active 2022 WILFRIDO WhitakerP [address], [place], [address], [employer] 3 16:09:33 Problem Notes None recorded. Procedures Surgical History Date Name Laterality Status Provider Name and Address Organization Details Recorded Time lumpectomy of breast completed Not Available [facility] 01/05/2023 20:01:23 Imaging Results Imaging Date Name Status LastModified by Organization Details LastModified Time 01/28/2023 electrocardiogram completed [email or web address] [facility] [address], [place], [address], 01/28/2023 16:28:49 02/18/2023 US, echocardiogram, transthoracic, complete, w/ color flow completed [email or web address] [address], [place], [address], 02/23/2023 16:07:02 Procedure Notes None recorded. Medical [...] Updated DateTime 08/04/2021 25.1 kg/m2 180.34 cm 53198.63 g Not Available [facility] 01/05/2023 20:01:45 Date Recorded Body height Systolic blood pressure Diastolic blood pressure Provider Name and Address Organization Details Last Updated DateTime 08/05/2021 180.34 cm 130 mm[Hg] 78 mm[Hg] Not Available [facility] 01/05/2023 20:01:44 Date Recorded Body height Body mass index (BMI) Body weight Body temperature Heart rate Oxygen saturation Oxygen saturation in Arterial blood by Pulse oximetry Systolic blood pressure Diastolic blood pressure Provider Name and Address Organization Details Last Updated DateTime 3 180.34 cm 27.3 kg/m2 70688.1 g 97.7 [degF] 88 /min 98 % 98 % 120 mm[Hg] 60 mm[Hg] Angeles Vila MA [facility] [employer] 3 15:46:43 Date Recorded Body height Body mass index (BMI) Body weight Body temperature Heart rate Oxygen saturation Oxygen saturation in Arterial blood by Pulse oximetry Systolic blood pressure Diastolic blood pressure Provider Name and Address Organization Details Last Updated DateTime 3 180.34 cm 27.2 kg/m2 99564.5 1 g 97.8 [degF] 86 /min 99 % 99 % 116 mm[Hg] 74 mm[Hg] Sameera Watts RN [facility] [employer] 3 16:02:26 Social History Question Answer Notes LastModified by Organizat ion Details LastModified Time Tobacco Smoking Status Never Smoker Not Available [facility] 01/05/2023 20:01:17 Do You Have An Advance Directive? No [id number] Information not available 01/05/2023 What Is Your Level Of Alcohol Consumption? Moderate MIGRATION.[id number] 1175 Information not available 01/05/2023 Do You Wear A Helmet When Biking? Yes MIGRATION.971397 9468 Information not available 01/05/2023 What Is Your Level Of Caffeine Consumption? Moderate MIGRATION.150214 1209 Information not available 01/05/2023 In The 14 Days Before Symptom Onset, Have You Had Close Contact With A Laboratory-confir med COVID-19 While That Case Was Ill? No MIGRATION.[id number] 2211 Information not available 01/05/2023 In The 14 Days Before Symptom Onset, Have You Had Close Contact With A Person Who Is Under Investigation For COVID-19 While That Person Was Ill? No MIGRATION.422715 2854 Information not available 01/05/2023 What Type Of Diet Are You Following? REGULAR MIGRATION.312781 7102 Information not available 01/05/2023 What Is The Highest Grade Or Level Of School You Have Completed Or The Highest Degree You Have Received? 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 No MIGRATION.475409 2669 Information not available 01/05/2023 What Is The Fluoride Status Of Your Home? Unknown MIGRATION.061564 7265 Information not available 01/05/2023 Are There Any Guns Present In Your Home? No MIGRATION.786475 0509 Information not available 01/05/2023 Do You Use Insect Repellent Routinely? Yes MIGRATION.839508 6509 Information not available 01/05/2023 [facility] MIGRATION.432666 5237 Information not available 01/05/2023 Do You Have A Medical Power Of Protective Signal Repairer Helper? No MIGRATION.196718 3407 Information not available 01/05/2023 Have You Ever Been Counseled For Unhealthy Alcohol Use? No MIGRATION.886142 1823 Information not available 01/05/2023 Do You Have Any Pets? Yes MIGRATION.287417 9398 Information not available 01/05/2023 What Is Your Relationship Status? Single MIGRATION.369411 4012 Information not available 01/05/2023 Do You Use Your Seat Belt Or Car Seat Routinely? Yes MIGRATION.390289 0766 Information not available 01/05/2023 Do You Have Smoke And Carbon Monoxide Detectors In Your Home? Yes MIGRATION.038650 7626 Information not available 01/05/2023 Are You Passively Exposed To Smoke? No MIGRATION.255698 0760 Information not available 01/05/2023 Are There Any Smokers In Your House? No MIGRATION.122646 9899 Information not available 01/05/2023 Do You Participate In Social Media? Yes MIGRATION.993015 9120 Information not available 01/05/2023 What Types Of Sporting Activities Do You Participate In? None MIGRATION.400002 8282 Information not available 01/05/2023 Do You Feel Stressed (tense, Restless, Nervous, Or Anxious, Or Unable To Sleep At Night)? [id number] MIGRATION.200177 8420 Information not available 01/05/2023 Do You Use Any Illicit Or Recreational Drugs? No MIGRATION.502795 6773 Information not available 01/05/2023 Do You Use Sunscreen Routinely? Yes MIGRATION.627500 5555 Information not available 01/05/2023 Has Tobacco Cessation Counseling Been Provided? No MIGRATION.638450 4464 Information not available 01/05/2023 Have You Recently Traveled Abroad? No MIGRATION.794274 9203 Information not available 01/05/2023 Are You Currently In School? No MIGRATION.003795 0124 Information not available 01/05/2023 Do You Have Any Dietary Restrictions? No MIGRATION.676732 6832 Information not available 01/05/2023 Do You Or Have You Ever Used Any Other Forms Of Tobacco Or Nicotine? No MIGRATION.182609 3685 Information not available 01/05/2023 Sex: Unknown Functional Status Question Answer Note LastModified by Organizat ion Details LastModified Time What is your exercise level? Occasional [id number].[id number] 26 Information not available 01/05/2023 Mental Status None recorded. Family History Relationship Description Onset Age of this Age Resolved Age Notes LastModified by Organization Details LastModified Time Father No current problems or disability [id number] Not available 01/05/2023 20:01:24 Mother No current problems or disability MIGRATION.750 [id number] Not available 01/05/2023 20:01:24 Medical History No [...] SNOMED-CT Code Diagnosis ICD10 Code Diagnosis Note [id number] Mamie Chase MD [facility] [address] [place] [address] 08/04/2021 00:00:00 08/04/2021 16:51:24 [id number] Mamie Chase MD [address] [place] [address] 08/05/2021 00:00:00 08/05/2021 17:50:52 [id number] JELENA Whitaker [address] [place] [address] 01/28/2023 15:30:54 01/28/2023 16:35:48 Intermittent palpitations 487700829 R00.2 R00.0 Chronic, recurrentW ill check labs, ekg and send for echo.In the meantime, start metoprolol 25mg ER QHS. Continue propranolo l 10mg TID PRNPatient advised to call if palpitatio ns get worse or there are any associated chest pain, shortness of breath and/or dizziness. [id number] Mamie Chase MD [address] [place] [address] 02/23/2023 15:56:49 02/23/2023 16:33:39 Diastolic dysfunction 8774255 I51.9 New finding on echo (02/18/23)G rade II diastolic dysfunctio nEncourage d pt to work on good diet and routine cardiovasc ular exercise to strengthen heart.Will plan for yearly echo and consider cardiology referral if any changes. Hypercalcemia 60268565 E 83.52 New finding on labsCa 10.5 (01/28/23)W ill check PTH and ionized ca. Intermitte nt palpitations 005168615 R00.2 R00.0 Improved with beta blockers.L abs [...] Lopez Member ID Guarantor Name 01/28/2023 1 [facility]: (PPO) [id number] Johnathan Lang [id number] 49 Zena Lang 02/23/2023 1 [facility]: (PPO) [id number] Johnathan Lang [id number] Zena Lang Notes Date Note Type [...] if she takes the propranolol. Apple Bertrand, [facility] [address] [facility], [facility] [address], [place], [address], [facility] [employer] 01/28/2023 18:32:41 02/23/2023 text/html 02/23/23: 1. Pt [...] if she takes the propranolol. Apple Bertrand, [facility] [address] [facility], [facility] [address], [place], [address], [place] [facility] [employer] [facility] 02/23/2023 17:01:07 OBGyn Episode No OBEpisode recorded.
--- OUTSIDE RECORDS SUMMARY | 2025-03-13 06:56 | XMS_ITS | Data Portability ---
Author Organization [facility] Address [address] [place] [address] Care Team Providers Care Watch Case Polisher Name Role Phone SOCORRO KNAPP Primary Care Provider Assessment No assessment recorded. Plan of Treatment Reminders Order Date Submit Date Provider Last Modified By Organization Details Last Modified Time Details Appointments None recorded. Lab None recorded. Referral None recorded. Procedures None recorded. Surgeries laparoscopy , diagnostic (SURG) 2024 025 [facility], [facility] [address], [address], 5 11:48:42 salpingecto my, laparoscopi c (SURG) 2023 024 [facility], [address], [address], 4 13:27:25 Imaging None recorded. Medication Orders Xulane 150 mcg-35 mcg/24 hr transdermal patch 2024 025 [id number], [address] , [place], [place], [id number], 5 15:30:27 Patient TargetsNo targets recorded. Patient InstructionsNo instructions recorded. Reason for Referral None Reported. Results Created Date Observation Date Name Description Value Unit Range Abnormal Flag Note LastModifiedBy Organization Detail LastModifiedTime Result Notes None recorded. Problems Name Problem SNOMED Code Status Onset Date Resolution Date Notes Provider Name and Address Organization Details Recorded Time Breast lump [id number] Active 04/24/2 015 Breast lump;Recor ded Elsewhere: No Locatio n: [facility] Shruti rce: EHR Chroni c: N Practice ID: [id number] Gagandeep ble Time: 08:30:00 AM Not Available [facility] 0 21:32:45 Problem Notes None recorded. Procedures Surgical History Date Name Laterality Status Provider Name and Address Organization Details Recorded Time 01/24/20 25 LAPAROSCOPY, DIAGNOSTIC (SURG) completed Shabnam Mendoza [facility] 01/23/2025 13:47:45 12/28/19 24 SALPINGECTOMY, LAPAROSCOPIC (SURG) completed Sherron Santiago [facility] 12/30/2023 16:40:16 04/27/20 23 Date of Last Pap Smear completed Luzma Elliott [facility] 10/27/2023 16:45:14 11/07/18 99 Remove tonsils and adenoids completed Ashlie Barlow [facility] 09/15/2020 10:14:01 Imaging Results None recorded. [...] Prescrib ed Elsewher e: Yes [facility] By: je huizar DateTime : 07/04/20 03:30:00 PM Not Available Not Available Not Available prednison e 10 mg tablet 11/23 completed Not Available Not Available Not Available cetirizin e 10 mg tablet TAKE 1 TABLET BY MOUTH EVERY DAY 07/28 completed Not Available Not Available Not Available hydrocodo ne 5 mg-acetam inophen 325 mg tablet TAKE 1 TO 2 TABLETS BY MOUTH EVERY 6 HOURS NEEDED FOR PAIN active Not Available Not Available No t Available prazosin 1 mg capsule TAKE 1 CAPSULE BY MOUTH EVERY NIGHT AT BEDTIME active Not Available Not Available No t Available prednison e 20 mg tablet 11/23 completed Not Available Not Available Not Available Mircette (28) 0.15 mg-0.02 mg (21)/0.01 mg (5) tablet take 1 tablet by oral route every day 07/04 completed Prescrib ed Elsewher e: No Locat ion: [facility] odify By: je Erwin r DateTime : [...] Prescrib ed Elsewher e: Yes Loca tion: [facility] M odify By: je Erwin r DateTime : 07/04/20 03:30:00 PM Not Available Not Available Not [...] Updated DateTime 11/09/2023 179.07 cm 26 kg/m2 54378 g 133 mm[Hg] 80 mm[Hg] Maria Esther Leyva [facility] 4 16:39:26 Date Recorded Body height Body mass index (BMI) Body weight Systolic blood pressure Diastolic blood pressure Provider Name and Address Organization Details Last Updated DateTime 01/06/2024 179.07 cm 25.3 kg/m2 38588.03 g 102 mm[Hg] 67 mm[Hg] Angelia Gant [facility] 4 12:42:33 Date Recorded Body height Body mass index (BMI) Body weight Systolic blood pressure Diastolic blood pressure Provider Name and Address Organization Details Last Updated DateTime 01/14/2025 179.07 cm 27.4 kg/m2 75803.92 g 124 mm[Hg] 73 mm[Hg] Luzma [facility] 5 15:03:26 Date Recorded Body height Body mass index (BMI) Body weight Systolic blood pressure Diastolic blood pressure Provider Name and Address Organization Details Last Updated DateTime 01/31/2025 179.07 cm 27.7 kg/m2 78534.1 g 130 mm[Hg] 78 mm[Hg] Luzma [facility] 5 16:55:39 Social History Question Answer Notes LastModified by Organizat ion Details LastModified Time Tobacco Smoking Status Never Smoker Ashlie Gumber [facility] 09/15/2020 17:24:00 What Is Your Level [...] Not available 10:13:24 Mother Cyst of ovary [email or web address] Not available 01/06 16:19:35 Notes:Mother: Ovarian cyst, Anemia Medical History Condition Response Other Anemia Y Psychiatric Illness Y Asthma Y Gynecological History Statement/Question Response Abnormal Pap N Flow Heavy Date of LMP 12/30/2024 Was last menstrual period normal Y HPV Vaccine N Duration of Flow (days) 5 Current Control [...] SNOMED-CT Code Diagnosis ICD10 Code Diagnosis Note [id number] Shannon Edouard CNM [facility] [address] [address] 09/15/2020 16:38:51 09/16/2020 10:12:16 Gynecologic examination 90911305 Z01.419 Take Calcium with Vitamin D 1200mg [...] paper copy of today's plan if desired. [id number] [facility] [address] [address] 11/23/2021 16:39:27 11/23/2021 17:19:18 Gynecologic examination 59024512 Z01.419 Z11.3 Z11.8 Take Calcium with Vitamin [...] paper copy of today's plan if desired. [id number] Ignacia Joiner [facility] [address] [address] 04/27/2023 16:32:51 04/27/2023 17:22:36 Gynecologic examination 88912577 Z01.419 Take Calcium with Vitamin D 1200mg [...] Screen Routine Labs Contracept ion care management [id number] Z30.9 Trial of SLYNDSampl es givenRTO x [...] there is a connection . Will consider. [id number] Ignacia Joiner [facility] [address] [address] 07/28/2023 16:49:30 07/29/2023 09:55:14 Contraception care management 298288286 Z30.9 Med check of SLYNDDid not like [...] counseling and review of plan of care. [id number] Ignacia Joiner , [facility] [address] [address] 10/27/2023 16:34:05 10/27/2023 17:54:00 Contraception care management 554678309 Z30.9 Patient is here today for a [...] Jose for consult to discuss this option. [id number] Ruslan Jose MD [facility] [address] [address] 11/09/2023 16:17:09 11/10/2023 09:01:58 Female sterilization 31566180 Z30.2 This patient is a 28-year-ol d [...] forward with laparoscop ic bilateral salpingect gurmeet. [id number] Ruslan Jose MD [facility] [address] [address] 01/06/2024 12:35:10 01/06/2024 13:11:17 Postoperative care [id number] Z48.89 This patient is a 28-year-ol d female who presents for postop follow-up. She is 1 week postop from a laparoscop ic bilateral salpingect gurmeet. Her incisions are clean dry and intact. She has no complaints . She is recovering normally. She will follow up as needed. [id number] Ruslan Jose MD [facility] [address] [address] 01/14/2025 14:43:54 01/15/2025 03:42:26 Endometriosis of pelvis 29482899 N80.9 Pain in pelvis 25884930 R10.2 This patient is a 29-year-ol d female with endometrio sis and severe pelvic pain. We have agreed to perform diagnostic laparoscop y. She understand s risks, benefits, and alternativ es. She has completed the informed consent process is ready to proceed. I spent over 30 minutes on the patient's care in total today. We made a decision to perform surgery. [id number] Ruslan Jose MD [facility] [address] [address] 01/23/2025 08:20:11 01/24/2025 08:25:45 [id number] Ruslan Jose MD [facility] [address],[place] [address] 01/31/2025 16:19:25 02/07/2025 15:08:54 Postoperative care [id number] Z48.89 this patient is a 29-year-ol d female who presents for postop follow-up after diagnostic laparoscop y. She had deep penetratin g endometria l implants. Impressive endometrio sis. She continues to have some postoperat lilia pelvic pain at this time. This is consistent with the amount of surgery that was required. Her incisions are clean dry and intact. She will follow up as needed. She was offered adjunct medical treatment for endometrio sis. She declined anything more than her current combined hormone patch. Health Concerns Section Related Observation LastModified by Organization Detai ls LastModified Time None Recorded Concern Status LastModified by Organization Details LastModified Time None Recorded Advance Directives Directive None Recorded Payers Encounter Date Sequence Insurance Name Policy Number Policy Lopez Covered Member ID Lopez Member ID Guarantor Name 11/09/2023 1 [facility] [id number] Zena Lang [id number] Zena Lang 01/06/2024 1 [facility] [id number] Zena Lang [id number] Zena Lang 01/14/2025 1 [id number] Zena Lang [id number] Zena Lang 01/23/2025 1 [place] [id number] Zena Lang [id number] Zena Lang 01/31/2025 1 [place] [id number] Zena Lang [id number] Zena Lang Notes Date Note Type Note Provider Name and Address Organization Details Recorded Time 11/09/2023 text/html This patient is a 28-year-old [...] reversible. Ruslan Jose MD [address], [place], [address], [facility] 11/09/2023 18:58:50 01/06/2024 text/html This patient is a 28-year-old female who presents for postop follow-up. She is 1 week postop from a laparoscopic bilateral salpingectomy. Her incisions are clean dry and intact. She has no complaints. She is recovering normally. She will follow up as needed. Ruslan Jose MD [address], [place], [address], [facility] 01/06/2024 13:10:04 01/14/2025 text/html this patient [...] infection. Ruslan Jose MD [address], [place], [address], [facility] 01/14/2025 18:11:53 01/31/2025 text/html this patient is a 29-year-old female who presents for postop follow-up after diagnostic laparoscopy. She had deep penetrating endometrial implants. Impressive endometriosis. She continues to have some postoperative pelvic pain at this time. This is consistent with the amount of surgery that was required. Her incisions are clean dry and intact. She will follow up as needed. She was offered adjunct medical treatment for endometriosis. She declined anything more than her current combined hormone patch. Ruslan Jose MD [address], [place], [address], [facility] 02/07/2025 09:39:45 OBGyn Episode No OBEpisode recorded.
--- OUTSIDE RECORDS SUMMARY | 2025-03-13 06:56 | XMS_ITS | Clinical Summary ---
Author Organization [facility] Address [address], [facility] [address] [place] [address] Phone Care Team Providers Care Strategic Alliances Manager Name Role Phone Jessa Wilkerson MD Primary Care Provider [phone] Allergies No known active allergies Medications VIORELE [...] Comments Blood Pressure 116/74 10/06/2017 1:10 PM MILITARY TECHNICIAN Pulse 95 10/06/2017 1:10 PM MILITARY TECHNICIAN Temperature 36.8 C (98.3 F) 10/06/2017 1:10 PM MILITARY TECHNICIAN Respiratory Rate 20 10/06/2017 1:10 PM MILITARY TECHNICIAN Oxygen Saturation 97% 10/06/2017 1:10 PM MILITARY TECHNICIAN Inhaled Oxygen Concentration - - Weight 70.1 kg (154 lb 8 oz) 10/06/2017 1:10 PM MILITARY TECHNICIAN Height 180.3 cm (5' 11 ) 10/06/2017 1:10 PM MILITARY TECHNICIAN Body Mass Index 21.55 10/06/2017 1:10 PM MILITARY TECHNICIAN Plan of Treatment Health Maintenance Due Date Last Done Comments Hepatitis C Virus (HCV) Screening 1997 Influenza Immunization (#1) 2024 SARS-COV-2 Immunization ( [...] patient's age to complete this topic Insurance [facility] Care Teams Strategic Alliances Manager Relationship Specialty Start Date End Date Jessa Wilkerson MD [address] [address] PCP - General Family Medicine 04/18/17
[2025-03-13 07:03] VITALS: BP 130/69; PULSE 78; RESP 12; TEMP 36.7; O2SAT 98
--- NOTE | 2025-03-13 07:17 | ED.FEMALEGU ---
HPI - Female Genitourinary General Chief complaint: Urogenital-Female Stated complaint: UTI x3 weeks, vaginal pain, dizziness Time Seen by Provider: 03/13/25 07:05 History of Present Illness HPI Narrative: 29-year-old female with a past medical history including diagnostic laparoscopic procedure 01/23 for endometriosis resulting in left oophorectomy and resection of endometriosis from her bladder wall and pelvic wall. Patient also has a history of frequent urinary tract infections. Patient presents to the emergency room today with complaint of feeling urinary tract infection without relief from azo. She had a telehealth visit with her doctor and was prescribed Macrobid twice daily for 5 days but only took it once daily for 5 days as she misunderstood the instructions. She initially felt improved after the 1st several days and then had recurrence for urinary infection symptoms with burning with urination. No pelvic pain, felt improved after endometriosis surgery and states the symptoms developed weeks after and feel very similar to previous urinary infections. She states that she has had some lightheadedness and dizziness associated with the burning urination but denies any vaginal bleeding or chance of . Presently she is content without any complaints resting in bed. Denies any nauseousness or vomiting. No headache or vision changes. No chest pain shortness a breath. No fever/chills or back pain. Related Data Home Medications ?Medication ?Instructions ?Recorded ?Confirmed ?Last Taken ?Type ziprasidone HCl 60 mg capsule 60 mg PO HS 12/19/23 01/16/25 12/27/23 History cholecalciferol (vitamin D3) 25 25 mcg PO DAILY 01/16/25 01/16/25 Unknown History mcg (1,000 unit) capsule (Vitamin D3) magnesium 250 mg tablet 500 mg PO HS 01/16/25 01/16/25 Unknown History prazosin 1 mg capsule 1 mg PO HS 01/16/25 01/16/25 Unknown History Allergies Allergy/AdvReac Type Severity Reaction Status Date / Time No Known Allergies Allergy Verified 03/13/25 07:08 Review of Systems Review of Systems: As reviewed above in [facility] Social History Social History Smoking status: Never smoker Alcohol intake: current Drinks per week: 2 Substance use: never Substance use type: marijuana Other substance usage details: Nightly Living arrangements: with friend(s) Additional living arrangements comments: BOYFRIEND Spiritual care concerns: No Exam Narrative: GENERAL: [Well-appearing, well-nourished, and in no acute distress.] HEAD: [Normocephalic, atraumatic.] EYES: [PERRLA and EOMI.] ENT: Nares clear, no rhinorrhea or epistaxis. Mucous membranes moist. NECK: Supple. CHEST: [Clear to auscultation. No respiratory distress.] HEART: [Regular rate and rhythm]. No murmur heard. [Normal peripheral pulses.] ABDOMEN: [Soft, nondistended], [nontender], [No rigidity or guarding] EXTREMITIES: Normal range of motion. [No edema.] SKIN: Warm, dry, no rash. NEURO: [No focal deficits]. Alert and oriented [x3.] PSYCH: [Normal mood and affect.] Course Vital Signs Vital signs: Vital Signs Temperature 36.7 C 03/13/25 07:03 Pulse Rate 78 03/13/25 07:03 Respiratory Rate 12 03/13/25 07:03 Blood Pressure 130/69 03/13/25 07:03 Pulse Oximetry 98 03/13/25 07:03 Oxygen Delivery Room Air 03/13/25 07:03 Temperature 36.7 C 03/13/25 07:03 Pulse Rate 78 03/13/25 07:03 Respiratory Rate 12 03/13/25 07:03 Blood Pressure 130/69 03/13/25 07:03 Pulse Oximetry 98 03/13/25 07:03 Oxygen Delivery Room Air 03/13/25 07:03 MDM - Female Genitourinary MDM Narrative Medical decision making narrative: 29-year-old female with history of endometriosis status post diagnostic and therapeutic laparoscopic procedure on 01/23 with removal of lesions from her bladder and pelvic wall. She also has a history of frequent urinary tract infections. She presents to the emergency room with chief complaint of burning with urination and feels very similar to previous urinary infections. Symptoms going on for 3 weeks and started after her procedure. Denies any pelvic pain, back pain, fever, chills. No history of kidney stones. No difficulty initiating urination or any vaginal bleeding. She has a soft nontender nondistended abdomen with normal vital signs and no fever. Suspicion presently is for urinary tract infection, antibiotic resistant bacteria also possible considering she has been taking her Macrobid incorrectly and only once daily instead of twice daily and did not finish the entire course combined with previous urinary infections. She did have bladder wall endometriosis lesions that were resected so cystitis, interstitial cystitis, hemorrhagic cystitis is also possible. Given her overall well appearance and normal vitals we will obtain urinalysis and send for urine culture to see if there is any antibiotic resistance and basic laboratory studies to assess for any leukocytosis, worsening anemia or any other anomalies especially in the perioperative. No current indications for advanced CT images for further diagnostic workup and she will be treated with antibiotics and referred back to her primary care provider/OBGYN assuming unremarkable workup. Patient's laboratory studies show urinalysis with greater than 100 white blood cells combined with her dysuria and 3+ leukocyte esterase convincing for urinary infection that was not treated with nitrofurantoin secondary to medication nonadherence verses resistant bacteria less likely. test is negative. No leukocytosis or anemia. She was given a dose of Bactrim here and sent home with Bactrim for the next 7 days. She will follow-up with regular doctor. Patient is safe for discharge at this time. Patient will be contacted in case urine culture shows resistant bacteria. Medical Records Attestation: I reviewed the patient's medical records. Lab Data Attestation: I reviewed the patient's lab results. 03/13/25 07:25 03/13/25 07:25 Labs: Lab Results 03/13/25 03/13/25 Range/Units 07:25 07:30 WBC 8.4 (4.5-10.0) K/mm3 RBC 4.69 (4.2-5.4) M/mm3 Hgb 14.0 (12.0-15.0) g/dL Hct 42.8 (37.0-47.0) % MCV 91.3 (80-100) fl MCH 29.9 (26-34) pg MCHC 32.7 (32-36) g/dl RDW 12.4 (11.5-14.5) % Plt Count 275 (150-375) k/mm3 MPV 9.9 (7.4-10.4) fl Immature Gran % (Auto) 0.4 (0-0.5) % Neut % (Auto) 58.4 (45.5-73.1) % Lymph % (Auto) 29.2 (18.3-44.2) % [place] % (Auto) 8.1 (2.6-8.5) % Eos % (Auto) 3.2 (0-4.4) % Baso % (Auto) 0.7 (0.2-1.2) % Lymph # (Auto) 2.46 (0.9-3.2) K/mm3 [place] # (Auto) 0.7 H (0.1-0.6) K/mm3 Eos # (Auto) 0.3 (0-0.3) K/mm3 Baso # (Auto) 0.1 (0.0-0.1) K/mm3 Abs Immat Gran (auto) 0.03 (0.00-0.031) K/mm3 Absolute Neuts (auto) 4.9 (1.3-6.7) K/mm3 Absolute Nucleated RBC 0.000 (0.0-0.012) K/mm3 Nucleated RBC % 0.0 (0.0-0.2) % Sodium 141 (137-145) mmol/L Potassium 3.9 (3.4-5.0) mmol/L Chloride 104 (98-107) mmol/L Carbon Dioxide 29 (22-30) mmol/L Anion Gap 8 (4-12) mmol/L BUN 15 (7-17) mg/dL Creatinine 0.79 (0.7-1.0) mg/dL Estim Creat Clear Calc 104 ml/min Estimated GFR > 60 (59 - ) Glucose 88 (65-110) mg/dL Calcium 9.1 (8.4-10.2) mg/dL Total Bilirubin 0.5 (0.2-1.3) mg/dL AST 27 (14-36) U/L ALT 21 (6-35) U/L Alkaline Phosphatase 60 (38-126) U/L Total Protein 7.0 (6.3-8.2) g/dL Albumin 4.5 (3.5-5.1) g/dL Urine Color Yellow (Yellow) Urine Appearance Cloudy H (Clear) Urine pH 6.5 (5.0-9.0) Ur Specific [place] 1.010 (1.001-1.035) Urine Protein Negative (Negative) mg/dL Urine Glucose (UA) Negative (Negative) mg/dL Urine Ketones Negative (Negative) mg/dL Ur Blood (Man) 1+ H (Negative) Urine Nitrate Negative (Negative) Urine Bilirubin Negative (Negative) Urine Urobilinogen 0.2 (<2.0) mg/dL Leukocyte Esterase Rfl 3+ H (Negative) JAYESH/UL Urine RBC 0-2 (0-2) /hpf Urine WBC >100 H (0-3) /hpf Ur Squamous Epith Cells None seen (Few) /hpf Urine Bacteria None seen /hpf Urine Casts 0-2 POC Urine HCG, Qual Negative (Negative) Discharge Plan Discharge Clinical Impression: Urinary tract infection Patient Disposition: Home Condition: Stable Instructions: Antibiotic Form, Urinary Tract Infection in Women (ED), Dysuria (ED) Additional Instructions: Urinalysis does indeed show a urinary tract infection but your laboratory studies otherwise are all normal. Given the incorrect treatment regimen with nitrofurantoin we will change this to a stronger more robust antibiotic called Bactrim. Please take this medication twice daily for the next 7 days. Follow-up with regular doctor. Return with any emergent concerns. Patient Language: Bermudian Prescriptions: New sulfamethoxazole-trimethoprim [Bactrim DS] 800-160 mg tablet 1 tablet PO Q12H Qty: 14 0RF No Action prazosin 1 mg capsule 1 mg PO HS Patient Comments: Takes as a mood stabilizer magnesium 250 mg tablet 500 mg PO HS cholecalciferol (vitamin D3) [Vitamin D3] 25 mcg (1,000 unit) capsule 25 mcg PO DAILY hydrocodone-acetaminophen 5-325 mg tablet 1 - 2 tablet PO Q6H PRN (Reason: pain) Qty: 25 0RF ziprasidone HCl 60 mg capsule 60 mg PO HS Follow-up/Referrals: PHYSICIAN,CORN HUSKER MACHINE OPERATOR [Non-Staff] - Time of Disposition: 08:01
--- OUTSIDE RECORDS SUMMARY | 2025-03-13 07:30 | XMS_ITS | Clinical Summary ---
Author Organization [facility] Address [address], [facility] [address] [place] [address] Phone Care Team Providers Care Broadcast Correspondent Name Role Phone Jessa Wilkerson MD Primary Care Provider [phone] Allergies No known active allergies Medications VIORELE [...] Comments Blood Pressure 116/74 10/06/2017 1:10 PM MEDIA SUPERVISOR Pulse 95 10/06/2017 1:10 PM MEDIA SUPERVISOR Temperature 36.8 C (98.3 F) 10/06/2017 1:10 PM MEDIA SUPERVISOR Respiratory Rate 20 10/06/2017 1:10 PM MEDIA SUPERVISOR Oxygen Saturation 97% 10/06/2017 1:10 PM MEDIA SUPERVISOR Inhaled Oxygen Concentration - - Weight 70.1 kg (154 lb 8 oz) 10/06/2017 1:10 PM MEDIA SUPERVISOR Height 180.3 cm (5' 11 ) 10/06/2017 1:10 PM MEDIA SUPERVISOR Body Mass Index 21.55 10/06/2017 1:10 PM MEDIA SUPERVISOR Plan of Treatment Health Maintenance Due [...] patient's age to complete this topic Insurance [facility] [[email or web address]] Care Teams Broadcast Correspondent Relationship Specialty Start Date End Date Jessa Wilkerson MD [address] [address] PCP - General Family Medicine 04/18/17
[2025-03-13 07:32] LABS: Basophils Absolute Auto 0.1 K/mm3 (0.0-0.1); Basophils Percent Auto 0.7 % (0.2-1.2); Eosinophils Absolute Auto 0.3 K/mm3 (0-0.3); Eosinophils Percent Auto 3.2 % (0-4.4); Hematocrit 42.8 % (37.0-47.0); Immature Granulocyte Absolute 0.03 K/mm3 (0.00-0.031); Immature Granulocyte Percent A 0.4 % (0-0.5); Lymphocytes Absolute Auto 2.46 K/mm3 (0.9-3.2); Lymphocytes Percent Auto 29.2 % (18.3-44.2); Mean Corpuscular HGB Conc 32.7 g/dl (32-36); Mean Corpuscular Hemoglobin 29.9 pg (26-34); Mean Corpuscular Volume 91.3 fl (80-100); Mean Platelet Volume 9.9 fl (7.4-10.4); Monocytes Absolute Auto 0.7 K/mm3 (0.1-0.6); Monocytes Percent Auto 8.1 % (2.6-8.5); Neutrophils Absolute Auto 4.9 K/mm3 (1.3-6.7); Neutrophils Percent Auto 58.4 % (45.5-73.1); Platelet Count Result 275 k/mm3 (150-375); Red Blood Count 4.69 M/mm3 (4.2-5.4); Red Cell Distribution Width 12.4 % (11.5-14.5); White Blood Count 8.4 K/mm3 (4.5-10.0)
[2025-03-13 07:32] LABS: BEDSIDEPREGUCG Negative (Negative)
[2025-03-13 07:38] LABS: Add Urine Microscopic? YES; Appearance Urine Cloudy (Clear); Bacteria Urine None Seen /hpf; Bilirubin Urine Negative (Negative); Blood Urine 1+ (Negative); Color Urine Yellow (Yellow); Glucose Urine UA Negative (Negative); Ketones Urine Negative (Negative); Leukocyte Esterase Ur 3+ LEU/UL (Negative); Nitrate Urine Negative (Negative); Non Pathogenic Casts 0-2; Protein Urine Negative (Negative); RBC Urine 0-2 /hpf (0-2); Squamous Epithelial Cell Urine None Seen /hpf (Few); Urobilinogen Urine 0.2 mg/dL (<2.0); WBC Urine >100 /hpf (0-3); pH Urine 6.5 (5.0-9.0)
[2025-03-13 07:45] LABS: Alanine Aminotransferase 21 U/L (6-35); Albumin Level 4.5 g/dL (3.5-5.1); Alkaline Phosphatase 60 U/L (38-126); Anion Gap 8 mmol/L (4-12); Aspartate Amino Transferase 27 U/L (14-36); Bilirubin,Total 0.5 mg/dL (0.2-1.3); Blood Urea Nitrogen 15 mg/dL (7-17); Calcium 9.1 mg/dL (8.4-10.2); Carbon Dioxide 29 mmol/L (22-30); Chloride 104 mmol/L (98-107); Estimated CRCL calculation 104 ml/min; Estimated Glomerular Filt Rate > 60; Glucose 88 mg/dL (65-110); Potassium 3.9 mmol/L (3.4-5.0); Sodium 141 mmol/L (137-145)
[2025-03-13 08:07] VITALS: BP 118/57; PULSE 78; RESP 18; O2SAT 100
[2025-03-13] MEDS: SULFAMETHOXAZOLE/TRIMETHOPRIM 800/160 MG DS TABLET 1 TAB PO (08:09)
[2025-03-13 08:10] VITALS: BP 118/75; PULSE 88; RESP 16; O2SAT 100
== END 2025-03-13 08:12 | disposition home or self-care (01) ==
PROVIDERS: Emergency Provider Student in an Organized Health Care Education/Training Program
DX: N39.0 Urinary tract infection, site not specified (principal); Z90.721 Acquired absence of ovaries, unilateral; Z79.899 Other long term (current) drug therapy
CPT/HCPCS: 36415; 80053; 81001; 81025; 85025; 87086; 87186; 99283; A9270

== ENCOUNTER 2025-04-19 19:00 | Emergency (ER) | payer OTHER, BC, SELFPAY ==
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
--- OUTSIDE RECORDS SUMMARY | 2025-04-19 19:03 | XMS_ITS | Data Portability ---
Author Organization [facility] [employer], Main Office Address [address] [place] [address] Assessment No assessment recorded. Plan of Treatment Reminders Order Date Submit Date Provider Last Modified By Organization Details Last Modified Time Details Appointments None recorded. Lab PTH (parathyroi d hormone), intact, serum or plasma 2022 023 [email or web address] [facility] (Lab), [address] [place], [address], 3 17:31:56 calcium, ionized, blood 2022 023 5 [facility] (Lab), [address] [place], [address], 3 14:31:01 magnesium, serum or plasma 2022 023 [facility] (Lab), [address] [place], [address], 3 16:36:52 CMP, serum or plasma 2022 023 [email or web address] [facility], [address] [place], [address], 3 16:37:20 iron + TIBC + ferritin, serum 2022 023 [email or web address] 5 [facility], [address] [place], [address], 3 19:27:11 TSH, serum or plasma 2022 023 [facility], [address] [place], [address], 3 16:37:45 CBC 2022 023 [email or web address] [facility], [address] [place], [address], 3 16:37:55 Referral None recorded. Procedures None recorded. Surgeries None recorded. Imaging US, echocardiog peyton, transthorac ic, complete, w/ color flow - please call pt to schedule 2022 023 [facility] (Cardiology & Emg), [address] [place] [address] [address], [place], [address], 3 11:12:46 electrocard iogram 2022 023 [facility] [place] [address], [place], [address], 3 16:35:48 Medication Orders metoprolol succinate ER 25 mg tablet,exte nded release 24 hr 2022 023 [facility]/Pharmacy #[id number], [address] [place], [address], 3 16:24:22 propranolol 10 mg tablet 2022 023 [email or web address] 5 [facility]/Pharmacy #[id number], [address] [place], [address], 3 18:29:07 metoprolol succinate ER 25 mg tablet,exte nded release 24 hr 2022 023 [email or web address] 5 [facility]/Pharmacy #2510, [address] [place], [address], 3 18:31:45 propranolol 10 mg tablet 2022 023 [facility]/Pharmacy #[id number], [address] [place], [address], 16:18:26 Patient TargetsNo targets recorded. Patient InstructionsNo instructions recorded. Reason for Referral None Reported. Results Created Date Observation Date Name Description Value Unit Range Abnormal Flag Note LastModifiedBy Organization Detail LastModifiedTime 01/29/2001/28/2023 CBC W/O DIFFE RENTI AL white blood cells 11.1 x10'3 /uL 4.2-10 .8 high Not Available [facility] (Lab) [address] [place], [address], 01/28/2023 19:31:10 01/29/2001/28/2023 CBC W/O DIFFE RENTI AL red blood cells 4.97 x10'6 /uL 3.80-5 .20 Not Available [facility] (Lab) [address] [place], [address], 01/28/2023 19:31:10 01/29/2001/28/2023 CBC W/O DIFFE RENTI AL hemoglobin 15.0 g/dL 12.0-1 5.6 Not Available [facility] (Lab) [address] [place], [address], 01/28/2023 19:31:10 01/29/2001/28/2023 CBC W/O DIFFE RENTI AL hematocrit 43.9 % 35.7-4 5.7 Not Available [facility] (Lab) [address] [place], [address], 01/28/2023 19:31:10 01/29/2001/28/2023 CBC W/O DIFFE RENTI AL mean red cell volume 88.3 fL 82.0-9 9.0 Not Available [facility] (Lab) [address] [place], [address], 01/28/2023 19:31:10 01/29/20 23 01/28/2023 CBC W/O DIFFE RENTI AL mean red cell hemoglobin 30.2 pg 27.0-3 3.0 Not Available [facility] (Lab) [address] [place], [address], 01/28/2023 19:31:10 01/29/2001/28/2023 CBC W/O DIFFE RENTI AL mean RBC HGB concentratio n 34.2 g/dL 31.0-3 6.0 Not Available [facility] (Lab) [address] [place], [address], 01/28/2023 19:31:10 01/29/2001/28/2023 CBC W/O DIFFE RENTI AL red cell distribution width 12.3 % 11.8-1 5.5 Not Available [facility] (Lab) [address] [place], [address], 01/28/2023 19:31:10 01/29/20 23 01/28/2023 CBC W/O DIFFE RENTI AL platelets 346 x10'3 /uL 150-40 0 Not Available [facility] (Lab) [address] [place], [address], 01/28/2023 19:31:10 01/29/2001/28/2023 CBC W/O DIFFE RENTI AL mean platelet volume 10.2 fL 9.0-12 .4 Not Available [facility] (Lab) [address] [place], [address], 01/28/2023 19:31:10 01/29/2001/28/2023 COMPR EHENS HAROON METAB OLIC PANEL sodium 137 mmol/ L 137-14 5 Not Available [facility] (Lab) [address] [place], [address], 01/28/2023 19:42:40 01/29/2001/28/2023 COMPR EHENS HAROON METAB OLIC PANEL potassium 3.7 mmol/ L 3.5-5. 1 Not Available [facility] (Lab) [address] [place], [address], 01/28/2023 19:42:40 01/29/20 23 01/28/2023 COMPR EHENS HAROON METAB OLIC PANEL chloride 101 mmol/ L 98-107 Not Available [facility] (Lab) [address] [place], [address], 01/28/2023 19:42:40 01/29/20 23 01/28/2023 COMPR EHENS HAROON METAB OLIC PANEL carbon dioxide 26 mmol/ L 22-30 Not Available [facility] (Lab) [address] [place], [address], 01/28/2023 19:42:40 01/29/20 23 01/28/2023 COMPR EHENS HAROON METAB OLIC PANEL anion gap 13.7 mmol/ L 14-22 low Not Available [facility] (Lab) [address] [place], [address], 01/28/2023 19:42:40 01/29/20 23 01/28/2023 COMPR EHENS HAROON METAB OLIC PANEL glucose 86 mg/dL 70-99 Not Available [facility] (Lab) [address] [place], [address], 01/28/2023 19:42:40 01/29/20 23 01/28/2023 COMPR EHENS HAROON METAB OLIC PANEL BUN 11 mg/dL 8-19 Not Available [facility] (Lab) [address] [place], [address], 01/28/2023 19:42:40 01/29/20 23 01/28/2023 COMPR EHENS HAROON METAB OLIC PANEL creatinine 0.60 mg/dL 0.66-1 .25 low Not Available [facility] (Lab) [address] [place], [address], 01/28/2023 19:42:40 01/29/20 23 01/28/2023 COMPR EHENS HAROON METAB OLIC PANEL GFR >60 Refer ence Range : Joseph ge GFR Healt hy Adult : >60 mL/mi n/1.7 3 m2 Chron ic Kidne y Disea se: 15-60 mL/mi n/1.7 3 m2 Kidne y Failu re: <15/m L/min /1.73 m2 www.n iddk. [facility].g ov The MDRD study equat ion [...] calcu lator is avail able on the [facility] websi te: https ://rina hopkins.jerry gaston.o rg/pr ofess ional s/kdo qi/gf r_cal culat or Not Available [facility] (Lab) [address] [place], [address], 01/28/2023 19:42:40 01/29/2001/28/2023 COMPR EHENS HAROON METAB OLIC PANEL alkaline phosphatase 64 U/L 38-126 Not Available [facility] (Lab) [address] [place], [address], 01/28/2023 19:42:40 01/29/20 23 01/28/2023 COMPR EHENS HAROON METAB OLIC PANEL alanine aminotransfe rase 28 U/L 0-35 Not Available [facility] (Lab) [address] [place], [address], 01/28/2023 19:42:40 01/29/20 23 01/28/2023 COMPR EHENS HAROON METAB OLIC PANEL aspartate aminotransfe rase 30 U/L 15-37 Not Available [facility] (Lab) [address] [place], [address], 01/28/2023 19:42:40 01/29/20 23 01/28/2023 COMPR EHENS HAROON METAB OLIC PANEL bilirubin, total 0.50 mg/dL 0.20-1 .30 Not Available [facility] (Lab) [address] [place], [address], 01/28/2023 19:42:40 01/29/20 23 01/28/2023 COMPR EHENS HAROON METAB OLIC PANEL calcium 10.5 mg/dL 8.4-10 .2 high Not Available [facility] (Lab) [address] [place], [address], 01/28/2023 19:42:40 01/29/20 23 01/28/2023 COMPR EHENS HAROON METAB OLIC PANEL total protein 7.2 g/dL 6.3-8. 2 Not Available [facility] (Lab) [address] [place], [address], 01/28/2023 19:42:40 01/29/20 23 01/28/2023 COMPR EHENS HAROON METAB OLIC PANEL albumin 4.6 g/dL 3.4-5. 0 Not Available [facility] (Lab) [address] [place], [address], 01/28/2023 19:42:40 01/29/20 23 01/28/2023 COMPR EHENS HAROON METAB OLIC PANEL globulin 2.6 g/dL 2.6-4. 2 Not Available [facility] (Lab) [address] [place], [address], 01/28/2023 19:42:40 01/29/2001/28/2023 COMPR EHENS HAROON METAB OLIC PANEL A/G ratio 1.8 ratio 1.0-2. 0 Not Available [facility] (Lab) [address] [place], [address], 01/28/2023 19:42:40 01/29/20 23 01/28/2023 MAGNE SIUM magnesium 1.9 mg/dL 1.6-2. 3 Not Available [facility] (Lab) [address] [place], [address], 01/28/2023 19:42:44 01/29/2001/28/2023 TSH thyroid-stim ulating hormone 2.430 uIU/m L 0.465- 4.680 Not Available [facility] (Lab) [address] [place], [address], 01/28/2023 20:05:34 01/29/20 23 01/28/2023 IRON/ TIBC PANEL total iron binding capacity 363 mcg/d L 265-47 5 Not Available [facility] (Lab) [address] [place], [address], 01/28/2023 20:27:05 01/29/2001/28/2023 IRON/ TIBC PANEL % transferrin saturation 28 % 20-55 Not Available [facility] (Lab) [address] [place], [address], 01/28/2023 20:27:05 01/29/20 23 01/28/2023 IRON/ TIBC PANEL unsaturated iron bind capacity 263 mcg/d L 126-38 2 Not Available [facility] (Lab) [address] [place], [address], 01/28/2023 20:27:05 01/29/20 23 01/28/2023 IRON/ TIBC PANEL iron 100 mcg/d L 42-175 Not Available [facility] (Lab) [address] [place], [address], 01/28/2023 20:27:05 01/29/20 23 01/31/2023 DEREK TIN ferritin 59 NG/mL 6.24-1 37 Not Available [facility] (Lab) [address] [place], [address], 01/31/2023 13:12:49 02/24/20 23 02/23/2023 PARAT HY.HO RM(PT H)INT ACT-W /O CA intact parathyroid hormone 43.4 pg/mL 24.0-7 8.0 Pleas e note new refer ence range effec tive 12/03 . Not Available [facility] (Lab) [address] [place], [address], 02/23/2023 20:41:50 02/24/20 23 02/25/2023 CALCI UM, IONIZ ED/LC calcium, ionized, serum 4.8 mg/dL 4.5-5. 6 Perfo [place]med at: [place] [address] Lab Direc tor: Miguel mckenzie PhD, Phone : [phone] Not Available [facility] (Lab) [address] [place], [address], 02/25/2023 15:11:06 01/29/20 23 elect maki diogr am No observ ation record ed. [email or web address] [facility] [address], [place], [address], 01/28/2023 16:28:49 02/19/20 23 02/18/2023 US, echoc ardio gram, trans thora cic, compl ete, w/ color flow No observ ation record ed. [email or web address] [place] [address], [place], [address], 02/23/2023 16:07:02 Result Notes None recorded. Problems Name Problem SNOMED Code Status Onset Date Resolution Date Notes Provider Name and Address Organization Details Recorded Time Intermittent palpitations 057806232 Active 2022 Apple Bertrand [facility] [address], [place], [address], [employer] 3 16:11:12 Diastolic dysfunction 0808952 Active 2022 Apple Bertrand [facility] [address], [place], [address], [employer] 3 16:07:18 Hypercalcemia 63283540 Active 2022 Apple Bertrand [facility] [address], [place], [address], [employer] 3 16:09:33 Problem Notes None recorded. Procedures Surgical History Date Name Laterality Status Provider Name and Address Organization Details Recorded Time lumpectomy of breast completed Not Available [facility] 01/05/2023 20:01:23 Imaging Results None recorded. Procedure Notes None [...] Updated DateTime 3 180.34 cm 27.3 kg/m2 33573.1 g 97.7 [degF] 88 /min 98 % 98 % 120 mm[Hg] 60 mm[Hg] Angeles Vila MA [facility] [employer] [facility] 3 15:46:43 Date Recorded Body height Body mass index (BMI) Body weight Body temperature Heart rate Oxygen saturation Oxygen saturation in Arterial blood by Pulse oximetry Systolic blood pressure Diastolic blood pressure Provider Name and Address Organization Details Last Updated DateTime 3 180.34 cm 27.2 kg/m2 77131.5 1 g 97.8 [degF] 86 /min 99 % 99 % 116 mm[Hg] 74 mm[Hg] Sameera Watts RN [facility] [employer] [facility] 3 16:02:26 Date Recorded Body mass index (BMI) Body height Body weight Provider Name and Address Organization Details Last Updated DateTime 08/04/2021 25.1 kg/m2 180.34 cm 82891.63 g Not Available [facility] 01/05/2023 20:01:45 Date Recorded Body height Systolic blood pressure Diastolic blood pressure Provider Name and Address Organization Details Last Updated DateTime 08/05/2021 180.34 cm 130 mm[Hg] 78 mm[Hg] Not Available [facility] 01/05/2023 20:01:44 Social History Question Answer Notes LastModified by Organizat ion Details LastModified Time Tobacco Smoking Status Never Smoker Not Available [facility] 01/05/2023 20:01:17 Do You Have An Advance Directive? No MIGRATION.[id number] Information not available 01/05/2023 Do You Wear A Helmet When Biking? Yes MIGRATION.468394 9061 Information not available 01/05/2023 What Is Your Level Of Caffeine Consumption? Moderate MIGRATION.262833 4695 Information not available 01/05/2023 In The 14 Days Before Symptom Onset, Have You Had Close Contact With A Laboratory-confir med COVID-19 While That Case Was Ill? No MIGRATION.[id number] 1886 Information not available 01/05/2023 In The 14 Days Before Symptom Onset, Have You Had Close Contact With A Person Who Is Under Investigation For COVID-19 While That Person Was Ill? No MIGRATION.[id number] 4943 Information not available 01/05/2023 What Type Of Diet Are You Following? REGULAR MIGRATION.074025 3263 Information not available 01/05/2023 What Is The Highest Grade Or Level Of School You Have Completed Or The Highest Degree You Have Received? [id number] MIGRATION.935856 9752 Information not available 01/05/2023 Have There Been Any Changes To Your Family Or Social Situation? No MIGRATION.617470 8433 Information not available 01/05/2023 What Is The Fluoride Status Of Your Home? Unknown MIGRATION.419074 1720 Information not available 01/05/2023 Are There Any Guns Present In Your Home? No MIGRATION.678768 2070 Information not available 01/05/2023 Do You Use Insect Repellent Routinely? Yes MIGRATION.317348 6494 Information not available 01/05/2023 Where Do You Live? [facility] MIGRATION.006165 2157 Information not available 01/05/2023 Do You Have A Medical Power Of Vegetable I Farmworker? No MIGRATION.228983 2821 Information not available 01/05/2023 Have You Ever Been Counseled For Unhealthy Alcohol Use? No MIGRATION.689793 8077 Information not available 01/05/2023 Do You Have Any Pets? Yes MIGRATION.551450 3480 Information not available 01/05/2023 What Is Your Relationship Status? Single MIGRATION.956769 7736 Information not available 01/05/2023 Do You Use Your Seat Belt Or Car Seat Routinely? Yes MIGRATION.068723 7241 Information not available 01/05/2023 Do You Have Smoke And Carbon Monoxide Detectors In Your Home? Yes MIGRATION.001711 2798 Information not available 01/05/2023 Are You Passively Exposed To Smoke? No MIGRATION.645443 5347 Information not available 01/05/2023 Are There Any Smokers In Your House? No MIGRATION.754687 6822 Information not available 01/05/2023 Do You Participate In Social Media? Yes MIGRATION.583548 3339 Information not available 01/05/2023 What Types Of Sporting Activities Do You Participate In? None MIGRATION.125158 6400 Information not available 01/05/2023 Do You Use Sunscreen Routinely? Yes MIGRATION.165252 4372 Information not available 01/05/2023 Has Tobacco Cessation Counseling Been Provided? No MIGRATION.891484 9694 Information not available 01/05/2023 Have You Recently Traveled Abroad? No MIGRATION.692297 7466 Information not available 01/05/2023 Are You Currently In School? No MIGRATION.649692 7624 Information not available 01/05/2023 Do You Have Any Dietary Restrictions? No MIGRATION.686481 3960 Information not available 01/05/2023 Sex: Unknown Functional Status Question Answer Note LastModified by [employer] Details LastModified Time Do you use any illicit or recreational drugs? No MIGRATION.1610947 026 Information not available 01/05/2023 Do you or have you ever used any other forms of tobacco or nicotine? No MIGRATION.6817408 026 Information not available 01/05/2023 What is your level of alcohol consumption? 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 Occasional MIGRATION.8755856 026 Information not available 01/05/2023 Mental Status Question Answer Note LastModified by J [employer] Details LastModified Time Do you feel stressed (tense, restless, nervous, or anxious, or unable to sleep at night)? [id number] MIGRATION.127805927 6 Information not available 01/05/2023 Family History Relationship Description Onset Age of this Age Resolved Age Notes LastModified by Organization Details LastModified Time Father No current problems or disability [id number].[id number] Not available 01/05/2023 20:01:24 Mother No current problems or disability MIGRATION.811 [id number] Not available 01/05/2023 20:01:24 Medical History No [...] SNOMED-CT Code Diagnosis ICD10 Code Diagnosis Note [id number] Mamie Chase MD [facility] [address] [place] [address] 08/04/2021 00:00:00 08/04/2021 16:51:24 [id number] Mamie Chase MD [facility] Primary Care [facility] [address] [facility] [address] [facility] [place] [address] 08/05/2021 00:00:00 08/05/2021 17:50:52 [id number] JELENA Whitaker [address] [place] [address] 01/28/2023 15:30:54 01/28/2023 16:35:48 Intermittent palpitations 597194490 R00.2 R00.0 Chronic, recurrentW ill check labs, ekg and send for echo.In the meantime, start metoprolol 25mg ER QHS. Continue propranolo l 10mg TID PRNPatient advised to call if palpitatio ns get worse or there are any associated chest pain, shortness of breath and/or dizziness. [id number] Mamie Chase MD [facility] [address] [place] [address] 02/23/2023 15:56:49 02/23/2023 16:33:39 Diastolic dysfunction 6593012 I51.9 New finding on echo (02/18/23)G rade II diastolic dysfunctio nEncourage d pt to work on good diet and routine cardiovasc ular exercise to strengthen heart.Will plan for yearly echo and consider cardiology referral if any changes. Hypercalcemia 85337190 E 83.52 New finding on labsCa 10.5 (01/28/23)W ill check PTH and ionized ca. Intermitte nt palpitations 212315543 R00.2 R00.0 Improved with beta blockers.L abs ok, echo indicates mild diastolic dysfunctio n.Continue metoprolol 25mg ER QHS.Contin ue propranolo l 10mg TID PRNPatient advised to be seen if palpitatio ns get worse or there are any associated chest pain, shortness of breath and/or dizziness. Health Concerns Section Related Observation LastModified by Organization [employer]von [employer]t LastModified Time None Recorded Concern Status LastModified by Organization Details LastModified Time None Recorded Advance Directives Directive N: Payers Insurance Date Sequence Insurance Name Policy Number Policy Lopez Covered Member ID Lopez Member ID Guarantor Name 12/14/2023 1 [facility] [id number] Zena Lang [id number] Zena Lang 12/14/2023 2 [employer] ([place] [id number] Zena Lang [id number] Zena Lang 12/14/2023 [facility] Zena Lang SELF SELF Zena Lang 10/12/2023 1 [id number] [id number] Johnathan Lang [id number] Zena Lang Notes Date Note Type Note [...] 45 min if she takes the propranolol. JELENA Whitaker [address], [place], [address], [facility] [employer] 01/28/2023 18:32:41 02/23/2023 text/html 02/23/23: 1. Pt [...] 45 min if she takes the propranolol. JELENA Whitaker [address], [place], [address], [place] [facility] 02/23/2023 17:01:07 OBGyn Episode No OBEpisode recorded.
--- OUTSIDE RECORDS SUMMARY | 2025-04-19 19:03 | XMS_ITS | Data Portability ---
Author Organization [facility] Address [address] [place] [address] Care Team Providers Care House Parent Name Role Phone SOCORRO KNAPP Primary Care Provider Assessment No assessment recorded. Plan of Treatment Reminders Order Date Submit Date Provider Last Modified By Organization Details Last Modified Time Details Appointments None recorded. Lab None recorded. Referral None recorded. Procedures None recorded. Surgeries laparoscopy , diagnostic (SURG) [address] [facility], [facility] [address], [address], 5 11:48:42 salpingecto my, laparoscopi c (SURG) [address] [facility], [address], [address], 4 13:27:25 Imaging None recorded. Medication Orders Xulane 150 mcg-35 mcg/24 hr transdermal patch 2024 025 [id number], [address] , [place], [place], [id number], 5 15:30:27 Patient TargetsNo targets recorded. Patient InstructionsNo instructions recorded. Reason for Referral None Reported. Results Created Date Observation Date Name Description Value Unit Range Abnormal Flag Note LastModifiedBy Organization Detail LastModifiedTime Result Notes None recorded. Problems Name Problem SNOMED Code Status Onset Date Resolution Date Notes Provider Name and Address Organization Details Recorded Time Breast lump [id number] Active 04/24/2 015 Breast lump;Recor ded Elsewhere: No Locatio n: [facility] Shruti rce: EHR Chroni c: N Practice ID: [id number] Gagandeep ble Time: 08:30:00 AM Not Available [facility] 0 21:32:45 Problem Notes None recorded. Procedures Surgical History Date Name Laterality Status Provider Name and Address Organization Details Recorded Time 01/24/20 25 LAPAROSCOPY, DIAGNOSTIC (SURG) completed Shabnam Mendoza [facility] 01/23/2025 13:47:45 12/28/19 24 SALPINGECTOMY, LAPAROSCOPIC (SURG) completed Sherron Santiago [facility] 12/30/2023 16:40:16 04/27/20 23 Date of Last Pap Smear completed Luzma Elliott [facility] 10/27/2023 16:45:14 11/07/18 99 Remove tonsils and adenoids completed Ashlie Barlow [facility] 09/15/2020 10:14:01 Imaging Results None [...] Prescrib ed Elsewher e: Yes [facility] By: je huizar DateTime : [...] Prescrib ed Elsewher e: No Locat ion: [facility] odify By: je Erwin r DateTime [...] Prescrib ed Elsewher e: Yes Loca tion: [facility] M odify By: je Erwin r DateTime [...] Updated DateTime 11/09/2023 179.07 cm 26 kg/m2 11744 g 133 mm[Hg] 80 mm[Hg] Maria Esther Leyva [facility] 4 16:39:26 Date Recorded Body height Body mass index (BMI) Body weight Systolic blood pressure Diastolic blood pressure Provider Name and Address Organization Details Last Updated DateTime 01/06/2024 179.07 cm 25.3 kg/m2 93206.03 g 102 mm[Hg] 67 mm[Hg] Angelia Gant [facility] 4 12:42:33 Date Recorded Body height Body mass index (BMI) Body weight Systolic blood pressure Diastolic blood pressure Provider Name and Address Organization Details Last Updated DateTime 01/14/2025 179.07 cm 27.4 kg/m2 74142.92 g 124 mm[Hg] 73 mm[Hg] Luzma [facility] 5 15:03:26 Date Recorded Body height Body mass index (BMI) Body weight Systolic blood pressure Diastolic blood pressure Provider Name and Address Organization Details Last Updated DateTime 01/31/2025 179.07 cm 27.7 kg/m2 25826.1 g 130 mm[Hg] 78 mm[Hg] Luzma [facility] 5 16:55:39 Social History Question Answer Notes LastModified by Organizat ion Details LastModified Time Tobacco Smoking Status Never Smoker Ashlie Gumber [facility] [employer] 09/15/2020 17:24:00 In The 14 Days Before Symptom Onset, [...] ion Details LastModified Time What is your level of alcohol consumption? Occasional Information not available 09/15/2020 What is your exercise level? Occasional Information [...] SNOMED-CT Code Diagnosis ICD10 Code Diagnosis Note [id number] Shannon Edouard CNM [facility] [address] [address] 09/15/2020 16:38:51 09/16/2020 10:12:16 Gynecologic examination 79856394 Z01.419 Take Calcium with Vitamin D 1200mg [...] paper copy of today's plan if desired. [id number] [facility] [address] [address] 11/23/2021 16:39:27 11/23/2021 17:19:18 Gynecologic examination 51589748 Z01.419 Z11.3 Z11.8 Take Calcium with Vitamin [...] paper copy of today's plan if desired. [id number] Ignacia Joiner [facility] [address] [address] 04/27/2023 16:32:51 04/27/2023 17:22:36 Gynecologic examination 03509258 Z01.419 Take Calcium with Vitamin D 1200mg [...] Screen Routine Labs Contracept ion care management [id number] Z30.9 Trial of SLYNDSampl es givenRTO x [...] there is a connection . Will consider. [id number] Ignacia Joiner [facility] [address] [address] 07/28/2023 16:49:30 07/29/2023 09:55:14 Contraception care management 657401231 Z30.9 Med check of SLYNDDid not like [...] counseling and review of plan of care. [id number] Ignacia Joiner , [facility] [address] [address] 10/27/2023 16:34:05 10/27/2023 17:54:00 Contraception care management 987500475 Z30.9 Patient is here today for a [...] Jose for consult to discuss this option. [id number] Ruslan Jose MD [facility] [address] [address] 11/09/2023 16:17:09 11/10/2023 09:01:58 Female sterilization 58144107 Z30.2 This patient is a 28-year-ol d [...] forward with laparoscop ic bilateral salpingect gurmeet. [id number] Ruslan Jose MD [facility] [address] [address] 01/06/2024 12:35:10 01/06/2024 13:11:17 Postoperative care 663378353 Z48.89 This patient is a 28-year-ol d female who presents for postop follow-up. She is 1 week postop from a laparoscop ic bilateral salpingect gurmeet. Her incisions are clean dry and intact. She has no complaints . She is recovering normally. She will follow up as needed. [id number] Ruslan Jose MD [facility] [address] [address] 01/14/2025 14:43:54 01/15/2025 03:42:26 Endometriosis of pelvis 60235147 N80.9 Pain in pelvis 31200708 R10.2 This patient is a 29-year-ol d female with endometrio sis and severe pelvic pain. We have agreed to perform diagnostic laparoscop y. She understand s risks, benefits, and alternativ es. She has completed the informed consent process is ready to proceed. I spent over 30 minutes on the patient's care in total today. We made a decision to perform surgery. [id number] Ruslan Jose MD [facility] [address] [address] 01/23/2025 08:20:11 01/24/2025 08:25:45 [id number] Ruslan Jose MD [facility] [address],[place] [address] 01/31/2025 16:19:25 02/07/2025 15:08:54 Postoperative care 431304272 Z48.89 this patient is a 29-year-ol d [...] Recorded Advance Directives Directive None Recorded Payers Insurance Date Sequence Insurance Name Policy Number Policy Lopez Covered Member ID Lopez Member ID Guarantor Name 01/31/2025 1 [facility] [id number] Zena Lang [id number] Zena Lang 02/07/2025 1 [place] [id number] Zena Lang [id number] Zena Lang 07/25/2023 1 [place] [id number] Johnathan Lang [id number] Zena Lang 01/31/2025 2 [employer] ([place]) [id number] Zena Lang [id number] Zena Lang 01/31/2025 1 [facility] [id number] Zena Lang [id number] Zena Lang Notes Date Note Type Note [...] reversible. Ruslan Jose MD [address], [place], [address], [facility] 11/09/2023 18:58:50 01/06/2024 text/html This patient is a 28-year-old female who presents for postop follow-up. She is 1 week postop from a laparoscopic bilateral salpingectomy. Her incisions are clean dry and intact. She has no complaints. She is recovering normally. She will follow up as needed. Ruslan Jose MD [address], [place], [address], [facility], [...] infection. Ruslan Jose MD [address], [place], [address], [facility] 01/14/2025 18:11:53 01/31/2025 text/html this patient [...] patch. Ruslan Jose MD [address], [place], [address], [facility] 02/07/2025 09:39:45 OBGyn Episode No OBEpisode recorded.
--- OUTSIDE RECORDS SUMMARY | 2025-04-19 19:03 | XMS_ITS | Clinical Summary ---
Author Organization [facility] Address [address], [facility] [address] [place] [address] Phone Care Team Providers Care Rural Electrification Engineer Name Role Phone Jessa Wilkerson MD Primary Care Provider [phone] Allergies No known active allergies Medications VIORELE [...] Comments Blood Pressure 116/74 10/06/2017 1:10 PM PHYSICAL EDUCATION PROFESSOR Pulse 95 10/06/2017 1:10 PM PHYSICAL EDUCATION PROFESSOR Temperature 36.8 C (98.3 F) 10/06/2017 1:10 PM PHYSICAL EDUCATION PROFESSOR Respiratory Rate 20 10/06/2017 1:10 PM PHYSICAL EDUCATION PROFESSOR Oxygen Saturation 97% 10/06/2017 1:10 PM PHYSICAL EDUCATION PROFESSOR Inhaled Oxygen Concentration - - Weight 70.1 kg (154 lb 8 oz) 10/06/2017 1:10 PM PHYSICAL EDUCATION PROFESSOR Height 180.3 cm (5' 11) 10/06/2017 1:10 PM PHYSICAL EDUCATION PROFESSOR Body Mass Index 21.55 10/06/2017 1:10 PM PHYSICAL EDUCATION PROFESSOR Plan of Treatment Health Maintenance Due Date Last Done Comments Hepatitis C Virus (HCV) Screening 1997 SARS-COV-2 Immunization ( season) 2024 01/31/2021, 01/08/2021 Influenza Immunization (Season Ended) 2025 Respiratory Syncytial Virus (RSV) Immunization (Adult) (1 - 1-dose 75+ series) 2072 Hepatitis B Immunization Completed 998, 1997, 1997 DTaP/Tdap/Td Immunization Discontinued 2011, 05/07/2002, 12/03/1998, Additional history exists TdaP Immunization Completed 05/26/2012 Human Papillomavirus (HPV) Immunization Completed 05/02/2016, 11/24/2015, 10/13/2015, Additional history exists Meningococcal Immunization (ACWY) Aged Out No longer eligible based on patient's age to complete this topic Pneumococcal Immunization Combined Aged Out No longer eligible based on patient's age to complete this topic Rotavirus Immunization Aged Out No lo nger eligible based on patient's age to complete this topic Insurance [facility] Care Teams Rural Electrification Engineer Relationship Specialty Start Date End Date Jessa Wilkerson MD [address] [address] PCP - General Family Medicine 04/18/17
--- OUTSIDE RECORDS SUMMARY | 2025-04-19 19:03 | XMS_ITS | Data Portability ---
Author Organization [facility] Address [address] [place] [address] Care Team Providers Care Surgery Scheduler Name Role Phone JESSA WINTERS Primary Care [...] haroon panel, serum 2016 017 [facility], [address], [place], [address], 7 16:19:24 celiac disease comprehens haroon panel, serum 2016 017 [facility], [facility] [address], [place], [address], 7 02:37:35 CBC w/ auto diff 2016 017 [facility], [address], [place], [address], 7 16:20:52 CMP, serum or plasma 2016 017 [facility], [address] [place], [place] [address]federico Florian, [facility] [address], [place], [address], 7 16:20:52 TSH, ultra-sens itive, serum 2016 017 [facility], [address] [place] [address], [address], [place], [address], 7 16:20:53 celiac disease comprehens haroon panel, serum 2016 017 [facility], [address] [place] [address], [address], [place], [address], 7 16:20:51 vitamin D, 25-hydroxy , total, serum 2016 017 [facility], [address] [place] [address], [address], [place], [address], 7 16:20:53 Referral None recorded. Procedures None recorded. Surgeries None recorded. Imaging None recorded. Medication Orders Seasonique 0.15 mg-30 mcg (84)/10 mcg(7) tablets,3 month dose pack 2018 019 [id number], [address] [place], [address], 9 17:00:10 Zofran ODT 8 mg disintegra ting tablet 2017 018 [id number] [address] [place], [address], 9 15:58:29 OsmoPrep 1.5 gram (1.102-0.3 98) tablet 2016 017 [facility] [address] [place], [address], 7 16:27:46 Miralax 17 gram/dose oral powder [address] [facility], [address] [place], [address], 7 16:27:32 Linzess 145 mcg capsule 2016 Carlos estelle [id number], [address] [place], [address], 7 16:27:28 Patient TargetsNo targets recorded. Patient Instructions Encounter Date Encounter Id Patient Instructions Last Modified By Organization Details Last Modified Time 03/15/2017 [id number] constipation: care instructions Not available 03/15/2017 17:41:21 diet - low fodmap lenglema Not availabl e 03/16/2017 09:44:44 04/12/2017 [id number] OK for work note for yesterday and today Not available 04/13/2017 02:37:16 Reason for Referral None Reported. Results Created Date Observation Date Name Description Value Unit Range Abnormal Flag Note LastModifiedBy Organization Detail LastModifiedTime 03/15/20 17 03/16/2017 sugey c disea se compr ehens haroon panel , serum endomysial antibody IgA NEGATI VE negati ve Not Available [facility] ([facility]) [address], [place], [address], 03/16/2017 16:20:51 03/15/20 17 03/16/2017 sugey c [...] TIVE ENTER OPATH Y. Not Available [facility] ([facility]) [address] [facility], [place], [address], 03/16/2017 16:20:51 03/15/20 17 03/16/2017 sugey c disea se compr ehens haroon panel , serum immunoglobul in A, qn, serum 73 mg/dL 87-352 below low normal Not Available [facility] ([facility]) [address] [facility], [place], [address], 03/16/2017 16:20:51 03/15/20 17 03/16/2017 sugey c disea se compr ehens haroon panel , serum T-transgluta minase (ttg) IgG <2 U/mL 0-5 NEGAT HAROON 0 - 5 WEAK POSIT HAROON 6 - 9 POSIT HAROON >9 Not Available [facility] ([facility]) [address] [facility], [place], [address], 03/16/2017 16:20:51 03/15/20 17 03/16/2017 CBC w/ auto diff WBC 10.2 x10e3 /uL 3.4-10 .8 Not Available [facility] ([facility]) [address] [facility], [place], [address], 03/16/2017 16:20:52 03/15/20 17 03/16/2017 CBC w/ auto diff RBC 4.75 x10e6 /uL 3.77-5 .28 Not Available [facility] ([facility]) [address] [facility], [place], [address], 03/16/2017 16:20:52 03/15/20 17 03/16/2017 CBC w/ auto diff hemoglobin 14.3 g/dL 11.1-1 5.9 Not Available [facility] ([facility]) [address] [place], [address], 03/16/2017 16:20:52 03/15/20 17 03/16/2017 CBC w/ auto diff hematocrit 40.5 % 34.0-4 6.6 Not Available [facility] ([facility]) [address] [place], [address], 03/16/2017 16:20:52 03/15/20 17 03/16/2017 CBC w/ auto diff MCV 85 fL 79-97 Not Available [facility] ([facility]) [address] [facility], [place], [address], 03/16/2017 16:20:52 03/15/20 17 03/16/2017 CBC w/ auto diff MCH 30.1 pg 26.6-3 3.0 Not Available [facility] ([facility]) [address] [facility], [place], [address], 03/16/2017 16:20:52 03/15/20 17 03/16/2017 CBC w/ auto diff MCHC 35.3 g/dL 31.5-3 5.7 Not Available [facility] ([facility]) [address] [facility], [place], [address], 03/16/2017 16:20:52 03/15/20 17 03/16/2017 CBC w/ auto diff RDW 13.4 % 12.3-1 5.4 Not Available [facility] ([facility]) [address] [facility], [place], [address], 03/16/2017 16:20:52 03/15/20 17 03/16/2017 CBC w/ auto diff platelets 287 x10e3 /uL 150-37 9 Not Available [facility] ([facility]) [address] [facility], [place], [address], 03/16/2017 16:20:52 03/15/20 17 03/16/2017 CBC w/ auto diff neutrophils 61 % Not Available [facility] [address] [place], [address], 03/16/2017 16:20:52 03/15/20 17 03/16/2017 CBC w/ auto diff lymphs 32 % Not Available [facility] ([facility]) [address] [facility], [place], [address], 03/16/2017 16:20:52 03/15/20 17 03/16/2017 CBC w/ auto diff monocytes 6 % Not Available [facility] ([facility]) [address] [place], [address], 03/16/2017 16:20:52 03/15/20 17 03/16/2017 CBC w/ auto diff eos 1 % Not Available [facility] ([facility]) [address] [place], [address], 03/16/2017 16:20:52 03/15/20 17 03/16/2017 CBC w/ auto diff basos 0 % Not Available [facility] ([facility]) [address] [place], [address], 03/16/2017 16:20:52 03/15/20 17 03/16/2017 CBC w/ auto diff immature cells ELECTRONIC IMAGING SYSTEM OPERATOR Not Available [facility] ([facility]) [address] [place], [address], 03/16/2017 16:20:52 03/15/20 17 03/16/2017 CBC w/ auto diff neutrophils (absolute) 6.2 x10e3 /uL 1.4-7. 0 Not Available [facility] ([facility]) [address] [place], [address], 03/16/2017 16:20:52 03/15/20 17 03/16/2017 CBC w/ auto diff lymphs (absolute) 3.3 x10e3 /uL 0.7-3. 1 above high normal Not Available [facility] ([facility]) [address] [place], [address], 03/16/2017 16:20:52 03/15/20 17 03/16/2017 CBC w/ auto diff monocytes(ab solute) 0.6 x10e3 /uL 0.1-0. 9 Not Available [facility] ([facility]) [address] [place], [address], 03/16/2017 16:20:52 03/15/20 17 03/16/2017 CBC w/ auto diff eos (absolute) 0.1 x10e3 /uL 0.0-0. 4 Not Available [facility] ([facility]) [address] [place], [address], 03/16/2017 16:20:52 03/15/20 17 03/16/2017 CBC w/ auto diff baso (absolute) 0.0 x10e3 /uL 0.0-0. 2 Not Available [facility] ([facility]) [address] [place], [address], 03/16/2017 16:20:52 03/15/20 17 03/16/2017 CBC w/ auto diff immature granulocytes 0 % Not Available [facility]) [address] [place], [address], 03/16/2017 16:20:52 03/15/20 17 03/16/2017 CBC w/ auto diff immature grans (abs) 0.0 x10e3 /uL 0.0-0. 1 Not Available [facility] ([facility]) [address] [place], [address], 03/16/2017 16:20:52 03/15/20 17 03/16/2017 CBC w/ auto diff NRBC ELECTRONIC IMAGING SYSTEM OPERATOR Not Available [facility] ([facility]) [address] [place], [address], 03/16/2017 16:20:52 03/15/20 17 03/16/2017 CBC w/ auto diff hematology comments: ELECTRONIC IMAGING SYSTEM OPERATOR Not Available [facility] ([facility]) [address] [place], [address], 03/16/2017 16:20:52 03/15/20 17 03/16/2017 CMP, serum or plasm a glucose, serum 89 mg/dL 65-99 Not Available [facility] ([facility]) [address] [place], [address], 03/16/2017 16:20:52 03/15/20 17 03/16/2017 CMP, serum or plasm a BUN 15 mg/dL 6-20 Not Available [facility] ([facility]) [address] [facility] [place], [address], 03/16/2017 16:20:52 03/15/20 17 03/16/2017 CMP, serum or plasm a creatinine, serum 0.72 mg/dL 0.57-1 .00 Not Available [facility] ([facility]) [address] [facility] [place], [address], 03/16/2017 16:20:52 03/15/20 17 03/16/2017 CMP, serum or plasm a eGFR if nonafricn AM 122 mL/mi n/1.7 3 >59 Not Available [facility] ([facility]) [address] [place], [address], 03/16/2017 16:20:52 03/15/20 17 03/16/2017 CMP, serum or plasm a eGFR if africn AM 140 mL/mi n/1.7 3 >59 Not Available [facility] ([facility]) [address] [place], [address], 03/16/2017 16:20:52 03/15/20 17 03/16/2017 CMP, serum or plasm a BUN/creatini ne ratio 21 9-23 Not Available [facility] ([facility]) [address] [place], [address], 03/16/2017 16:20:52 03/15/20 17 03/16/2017 CMP, serum or plasm a sodium, serum 143 mmol/ L 134-14 4 Not Available [facility] ([facility]) [address] [place], [address], 03/16/2017 16:20:52 03/15/20 17 03/16/2017 CMP, serum or plasm a potassium, serum 4.8 mmol/ L 3.5-5. 2 Not Available [facility] ([facility]) [address] [place], [address], 03/16/2017 16:20:52 03/15/20 17 03/16/2017 CMP, serum or plasm a chloride, serum 103 mmol/ L 96-106 Not Available [facility] ([facility]) [address] [facility], [place], [address], 03/16/2017 16:20:52 03/15/20 17 03/16/2017 CMP, serum or plasm a carbon dioxide, total 21 mmol/ L 18-29 Not Available [facility] ([facility]) [address] [facility] [place], [address], 03/16/2017 16:20:52 03/15/20 17 03/16/2017 CMP, serum or plasm a calcium, serum 9.7 mg/dL 8.7-10 .2 Not Available [facility] ([facility]) [address] [place], [address], 03/16/2017 16:20:52 03/15/20 17 03/16/2017 CMP, serum or plasm a protein, total, serum 6.7 g/dL 6.0-8. 5 Not Available [facility] ([facility]) [address] [facility], [place], [address], 03/16/2017 16:20:52 03/15/20 17 03/16/2017 CMP, serum or plasm a albumin, serum 4.6 g/dL 3.5-5. 5 Not Available [facility] ([facility]) [address] [place], [address], 03/16/2017 16:20:52 03/15/20 17 03/16/2017 CMP, serum or plasm a globulin, total 2.1 g/dL 1.5-4. 5 Not Available [facility] ([facility]) [address] [place], [address], 03/16/2017 16:20:52 03/15/20 17 03/16/2017 CMP, serum or plasm a A/G ratio 2.2 1.2-2. 2 Not Available [facility] ([facility]) [address] [facility] [place], [address], 03/16/2017 16:20:52 03/15/20 17 03/16/2017 CMP, serum or plasm a bilirubin, total <0.2 mg/dL 0.0-1. 2 Not Available [facility] ([facility]) [address] [facility] [place], [address], 03/16/2017 16:20:52 03/15/20 17 03/16/2017 CMP, serum or plasm a alkaline phosphatase, S 45 IU/L 39-117 Not Available [facility] ([facility]) [address] [facility] [place], [address], 03/16/2017 16:20:52 03/15/20 17 03/16/2017 CMP, serum or plasm a AST (SGOT) 15 IU/L 0-40 Not Available [facility] ([facility]) [address] [facility] [place], [address], 03/16/2017 16:20:52 03/15/20 17 03/16/2017 CMP, serum or plasm a ALT (SGPT) 13 IU/L 0-32 Not Available [facility] ([facility]) [address] [place], [address], 03/16/2017 16:20:52 03/15/20 17 03/16/2017 vitam in [...] [facility] LEVI MOLINA DC: [facility] . 2. EMILIE Bergeron MF, ANGEL COFFMAN NC, BISCH OFF-F PATRICIA I BALLESTEROS, ET AL. EVALU ATION , TREAT MENT, AND PREVE NTION OF VITAM IN D DEFIC IENCY : AN ENDOC RINE SOCIE TY CLINI HUY PRACT ICE GUIDE LINE. JCEM. 2010; 96(7) :1911 -30. Not Available [facility] ([facility]) [address] [place], [address], 03/16/2017 16:20:53 03/15/20 17 03/16/2017 TSH, ultra -sens itive , serum TSH 1.680 uIU/m L 0.450- 4.500 Not Available [facility] ([facility]) [address] [place], [address], 03/16/2017 16:20:53 04/21/20 17 04/22/2017 sugey c disea se compr ehens haroon panel , serum endomysial antibody IgA NEGATI VE negati ve Not Available [facility] ([facility]) [address] [place], [address], 04/22/2017 16:19:24 04/21/20 17 04/22/2017 sugey c [...] TIVE ENTER OPATH Y. Not Available [facility] ([facility]) [address] [place], [address], 04/22/2017 16:19:24 04/21/20 17 04/22/2017 sugey cinthia disea se compr ehens haroon panel , serum immunoglobul in A, qn, serum 69 mg/dL 87-352 below low normal Not Available [facility] ([facility]) [address] [facility], [place], [address], 04/22/2017 16:19:24 04/21/20 17 04/22/2017 sugey cinthia disea se compr ehens haroon panel , serum T-transgluta minase (ttg) IgG <2 U/mL 0-5 NEGAT HAROON 0 - 5 WEAK POSIT HAROON 6 - 9 POSIT HAROON >9 Not Available [facility] ([facility]) [address] [facility], [place], [address], 04/22/2017 16:19:24 06/19/20 19 06/11/2019 XR, chest , 2 view No observ ation record ed. Not Available 2018 16:42:06 Result Notes None recorded. 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 7 09:34:07 Hypoglyc emia 232806446 Completed 201201/13/2013 Location : None;Sev erity: Moderate ;Progres s: Stable;A dded By: Jessa Winters;Add to Current Problems : NO Not Available [facility] 7 09:34:07 Vitamin D deficien cy 86221586 Active 2012 Location : None;Sev erity: Moderate ;Progres s: Stable;A dded By: Jessa Winters;Add to Current Problems : YES Not Available [facility] 7 09:34:07 Malaise and fatigue 777234325 Active 2012 Location : None;Sev erity: Moderate ;Progres s: Stable;A dded By: Charis Mejia;Add to Current Problems : NO Not Available [facility] 7 09:34:07 Constipa tion 10066711 Active 2014 Location : None;Sev erity: Moderate ;Progres s: Stable;A dded By: Alexia Stauffer i;Rylee dd to Current Problems : YES Not Available [facility] 7 09:34:07 Tubercul osis screenin g Completed 201310/03/2014 Location : None;Sev erity: Moderate ;Progres s: Stable;A dded By: Bria Lozano;Add to Current Problems : YES Not Available [facility] 7 09:34:07 HPV - Human papillom avirus test positive Active 2013 Location : None;Sev erity: Moderate ;Progres s: Stable;A dded By: Bria Lozano;Add to Current Problems : NO Not Available [facility] 7 09:34:58 Problem Notes None recorded. Procedures Surgical History Date Name Laterality Status Provider Name and Address Organization Details Recorded Time Breast Surgery completed Jessa Winters MD Attn: [address]ing[address] [place], [address], [facility] 03/15/2017 17:29:21 Imaging Results None recorded. Procedure Notes None [...] one po q hs 11/04 completed RxNorm: 780034; Allow Substit ution: True Not Available Not Available Not Available Vitamin D3 10 mcg (400 unit) tablet 5 po daily 04/12 completed Allow Substit ution: True Not Available Not Available Not Available sertraline 25 mg tablet 3 tablets everyday at noon 08/13 completed RxNorm: 574703; Allow Substit ution: True Not Available Not [...] ) by mouth daily 08/13 completed RxNorm: 779751; Allow Substit ution: True Not Available Not Available Not Available Linzess 145 mcg capsule Take 1 capsule every day by oral route. 04/21 completed Not Available Not Available Not Available Vitals Date Recorded Body height Body weight Body mass index (BMI) Body temperature Oxygen saturation Oxygen saturation in Arterial blood by Pulse oximetry Heart rate Systolic blood pressure Diastolic blood pressure Provider Name and Address Organization Details Last Updated DateTime 7 177.8 cm 77828.9 8 g 22 kg/m2 98 [degF] 99 % 99 % 100 /min 122 mm[Hg] 62 mm[Hg] Tory Mendoza MA MD - [facility] 7 17:03:05 Date Recorded Body height Body weight Body mass index (BMI) Oxygen saturation Oxygen saturation in Arterial blood by Pulse oximetry Heart rate Body temperature Systolic blood pressure Diastolic blood pressure Provider Name and Address Organization Details Last Updated DateTime 7 177.8 cm 93969.8 6 g 21.5 kg/m2 98 % 98 % 124 /min 97.8 [degF] 124 mm[Hg] 68 mm[Hg] Jessa Winters MD Attn: Stephania mckeon,[address] [place], [address], [facility] 7 02:31:43 Date Recorded Body height Body mass index (BMI) Body weight Heart rate Systolic blood pressure Diastolic blood pressure Provider Name and Address Organization Details Last Updated DateTime 7 177.8 cm 21.8 kg/m2 37666.6 g 76 /min 110 mm[Hg] 78 mm[Hg] Linda Jackson [facility] 7 16:28:47 Date Recorded Body height Body mass index (BMI) Body weight Oxygen saturation Oxygen saturation in Arterial blood by Pulse oximetry Heart rate Body temperature Systolic blood pressure Diastolic blood pressure Provider Name and Address Organization Details Last Updated DateTime 9 180.34 cm 23 kg/m2 41505.0 9 g 98 % 98 % 90 /min 99.3 [degF] 118 mm[Hg] 60 mm[Hg] Nancy Saeed MA MD - [facility] 9 15:58:01 Date Recorded Body weight Body temperature Oxygen saturation Oxygen saturation in Arterial blood by Pulse oximetry Heart rate Systolic blood pressure Diastolic blood pressure Provider Name and Address Organization Details Last Updated DateTime 8 22145.1 9 g 97.7 [degF] 99 % 99 % 96 /min 106 mm[Hg] 56 mm[Hg] Jessa Winters MD Attn: Stephania g,[address] [place], [address], [facility] 8 16:12:15 Social History Question Answer Notes LastModified by Organizat ion Details LastModified Time Tobacco Smoking Status Never Smoker Jessa Winters MD Attn: Accounting[address] [place], [address], [facility] - [facility] 03/15/2017 17:28:56 What Was The Date Of Your Most Recent Tobacco Screening? 08/24/2018 Information not available 05/31/2019 Do You Use Protection During Sex? No Information not available 08/24/2018 Are You Sexually Active? Yes Information not available 08/24/2018 Sex: Unknown Functional Status Question Answer Note LastModified by Organizat ion Details LastModified Time What is your level of alcohol consumption? Moderate vodka or amarhetto Information not available 08/24/2018 Mental Status None recorded. Family History Relationship Description Onset Age of this Age Resolved Age Notes LastModified by Organization Details LastModified Time Mother Mitral valve prolapse Not available 2016 20:50:45 Medical History Condition Response Depression Y Anxiety Disorder Y Gynecological History Statement/Question Response Menses Monthly Y Date of LMP 06/10/2019 On BCP's at Conception? Y Obstetrics History GPAL:G 0 P 0 0 0 0 Immunizations Vaccine Type Date Status Note Provider Nam e and Address Organization Details Recorded Time HPV, quadrivalent 4 completed Not Available [facility] 12/08/2019 02:11:44 varicella 2 completed Not Available [facility] 11/10/2016 06:02:01 varicella 7 completed Not Available [facility] 11/10/2016 06:02:01 MMR 0 completed Not [facility] 11/10/2016 06:02:01 MMR 2 completed Not Available [facility] 11/10/2016 06:02:01 Hep B, adolescent or pediatric 7 completed Not Available [facility] 11/10/2016 06:02:01 Hep B, adolescent or pediatric 7 completed Not Available [facility] 11/10/2016 06:02:01 Hep B, adolescent or pediatric 8 completed Not Available [facility] 11/10/2016 06:02:01 Hib (PRP-OMP) 7 completed Not Available [facility] 11/10/2016 06:02:02 Hib (PRP-OMP) 7 completed Not Available [facility] 11/10/2016 06:02:02 Hib (PRP-OMP) 9 completed Not Available [facility] 11/10/2016 06:02:02 IPV 7 completed Not Available [facility] 11/10/2016 06:02:02 IPV 8 completed Not Available [facility] 11/10/2016 06:02:02 IPV 2 completed Not Available [facility] 11/10/2016 06:02:02 Tdap 2 completed Not Available [facility] 11/10/2016 06:02:03 HPV, quadrivalent 6 completed Not Available [facility] 11/10/2016 06:02:03 TST-PPD intradermal 4 completed Not Available [facility] 12/08/2019 02:11:44 IPV 7 completed Not Available [facility] 11/10/2016 06:02:03 DTP 8 completed Not Available [facility] 11/10/2016 06:02:03 DTP 2 completed Not Available [facility] 11/10/2016 06:02:04 DTP 7 completed Not Available [facility] 11/10/2016 06:02:04 DTP 7 completed Not Available [facility] 11/10/2016 06:02:04 DTP 9 completed Not Available [facility] 11/10/2016 06:02:04 Past Encounters Encounter ID Performer Location Encounter Start Date Encounter Closed Date Diagnosis/Indication Diagnosis SNOMED-CT Code Diagnosis ICD10 Code Diagnosis Note [id number] Jessa Winters MD [facility] [address] [place] [address] 03/15/2017 15:58:03 03/15/2017 17:53:11 Constipation 17932166 K59.00 Vitamin D deficiency 347 71790 E55.9 [id number] Jessa Winters MD [facility] [address] [place] [address] 04/12/2017 15:20:40 04/13/2017 15:16:13 Constipation 10869500 K59.00 no signs of obstructio n. She has no vomitting. She is drinking OK. Complains of pain with urination [id number] Jose Collins MD [facility] [address] [place] [address] 04/21/2017 16:02:35 04/21/2017 17:07:32 Constipation 56388318 K59.00 Linda will call to expedite her referral to Dr. Crain's office. [id number] Jessa Winters MD [facility] [address] [place] [address] 08/24/2018 15:36:21 08/25/2018 10:36:16 Acute gastroenteritis 39139074 K52.9 pt ed and precaution s given-- likely related to food ingestion but no fever or blood in stool-- no need for further evaluation unless not recovered in the next few days [id number] Jessa Winters MD [facility] [address] [place] [address] 06/14/2019 15:14:25 06/15/2019 09:00:39 Tachycardia 7403387 R00.0 you have had testing at the ER-- I will get those records to assure that the electrolyt es, mineral and thryoid were checked Disturbance in mood 4212 [address]45[address] Eliseo Diallo in a week and a half week about the medication and your new complaint of anxiety Panic disorder 028642696 F41.[address] Liz Premenstru al dysphoric disorder 696180 F32.81 we discussed monophasic control of menses [...] Member ID Lopez Member ID Guarantor Name 01/07/2020 1 SEEMA (PPO) [id number] Johnathan Lang [id number] Zena Lang Notes Date Note Type Note Provider Name and Address Organization Details Recorded Time 03/15/2017 text/html Abdominal PainRe ported bypatient.Quality:pain ;bloating;sharp Severity:mild Duration:constant Onset/Timing:worse Context:none Modifying Factors:nothing gives relief; nothing makes it worse Associated Symptoms:no fever; no heartburn; no shortness of breath;chills;nausea;c onstipation;decreased appetite Other:noneNotes: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 States she feels 10 times worse. Constipation chronic since starting [employer]. Sees Rohini [...] she has relief. AMERICO Rodriguez Attn: Accounting[address] [place], [address], [facility] 04/21/2017 16:58:47 08/24/2018 text/html DiarrheaReported bypatient.Quality:freq uent;watery; [...] incontinence;abdominal pain;nausea;vomiting;w yeimy Winters MD Attn: Accounting[address] [place], [address], [facility] 08/24/2018 16:17:20 06/14/2019 text/html Anxiety/Depressi onRepo rted bypatient.Quality:symp toms worse in the evening;symptoms worse during the day; went to [place] for racing heart rate dx with anxiety [...] in salary Jessa Winters MD Attn: Accounting[address] [place], [address], [place] [facility] 06/14/2019 17:02:42 OBGyn Episode No OBEpisode recorded.
[2025-04-19 19:48] VITALS: BP 130/78; PULSE 86; RESP 16; O2SAT 100
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
[2025-04-19 20:20] VITALS: BP 133/82; PULSE 70; RESP 16; O2SAT 98
--- OUTSIDE RECORDS SUMMARY | 2025-04-19 21:12 | XMS_ITS | Clinical Summary ---
Author Organization [facility] Address [address], [facility] [address] [place] [address] Phone Care Team Providers Care Project Estimator Name Role Phone Jessa Wilkerson MD Primary Care Provider [phone] Allergies No known active allergies Medications VIORELE [...] Comments Blood Pressure 116/74 10/06/2017 1:10 PM CLINICAL ADMINISTRATOR Pulse 95 10/06/2017 1:10 PM CLINICAL ADMINISTRATOR Temperature 36.8 C (98.3 F) 10/06/2017 1:10 PM CLINICAL ADMINISTRATOR Respiratory Rate 20 10/06/2017 1:10 PM CLINICAL ADMINISTRATOR Oxygen Saturation 97% 10/06/2017 1:10 PM CLINICAL ADMINISTRATOR Inhaled Oxygen Concentration - - Weight 70.1 kg (154 lb 8 oz) 10/06/2017 1:10 PM CLINICAL ADMINISTRATOR Height 180.3 cm (5' 11) 10/06/2017 1:10 PM CLINICAL ADMINISTRATOR Body Mass Index 21.55 10/06/2017 1:10 PM CLINICAL ADMINISTRATOR Plan of Treatment Health Maintenance Due Date [...] patient's age to complete this topic Insurance [facility] Care Teams Project Estimator Relationship Specialty Start Date End Date Jessa Wilkerson MD [address] [address] PCP - General Family Medicine 04/18/17
[2025-04-19 21:13] VITALS: BP 118/72; PULSE 72; RESP 16; O2SAT 98
== END 2025-04-19 21:20 | disposition home or self-care (01) ==
LOC: ANHED 21:10
PROVIDERS: Emergency Provider Emergency Medicine
DX: S39.012A Strain of muscle, fascia and tendon of lower back, initial encounter (principal); S46.911A Strain of unspecified muscle, fascia and tendon at shoulder and upper arm level, right arm, initial encounter; V43.52XA Car driver injured in collision with other type car in traffic accident, initial encounter
CPT/HCPCS: 72100; 73030; 99284